=== PATIENT | male | born 1950 | race Caucasian/White ===

== ENCOUNTER 2019-10-08 10:36 | Inpatient (IN) | payer MEDICARE, MEDICAID ==
[~2019-10-08] VITALS: Ht 182.9 cm; Wt 56.7 kg
[2019-10-08 11:26] LABS: BASOPHILS 0.2 % (0-2); EOSINOPHILS 0.1 % (0-7); HEMATOCRIT 30.9 % (42.0-54.0); HEMOGLOBIN 9.6 g/dL (13.5-17.5); IMMATURE GRANULOCYTES 0.4 % (0-5); LYMPHOCYTES 3.5 % (15-50); MCH 26.4 pg (26.0-34.0); MCHC 31.1 g/dL (31.0-37.0); MCV 84.9 fL (80.0-100.0); MEAN PLATELET VOLUME 8.4 fL (7.4-10.4); MONOCYTES 5.8 % (2-11); PLATELET COUNT 325 10x3/uL (130-400); RBC 3.64 10x6/uL (4.20-6.10); RDW 17.2 % (11.5-14.5); WBC 11.9 10x3/uL (4.8-10.8)
[2019-10-08 12:00] VITALS: BP 145/76
[2019-10-08 12:11] LABS: CALCIUM 8.4 mg/dL (8.5-10.1); CARBON DIOXIDE 30.2 mmol/L (21.0-32.0); CREATININE - SERUM 1.2 mg/dL (0.6-1.3)
[2019-10-08 12:12] LABS: ALBUMIN 2.1 g/dL (3.4-5.0); BILIRUBIN - TOTAL 1.01 mg/dL (0.2-1.3); PROTEIN - SERUM 7.5 g/dL (6.4-8.2)
[2019-10-08 13:00] VITALS: BP 121/74
[2019-10-08 13:11] LABS: UDS - AMPHET NEGATIVE QUAL (NEGATIVE); UDS - BARB NEGATIVE QUAL (NEGATIVE); UDS - BENZO NEGATIVE QUAL (NEGATIVE); UDS - COCAINE NEGATIVE QUAL (NEGATIVE); UDS - OPIATE POSITIVE QUAL (NEGATIVE); UDS - PCP NEGATIVE QUAL (NEGATIVE); UDS - THC NEGATIVE QUAL (NEGATIVE)
[2019-10-08 13:21] LABS: BACTERIA FEW /hpf (NEGATIVE); BILIRUBIN NEGATIVE (NEGATIVE); GLUCOSE NEGATIVE (NEGATIVE); KETONE NEGATIVE (NEGATIVE); NITRITE NEGATIVE (NEGATIVE); RED CELLS - URINE OCC /hpf (0-5); SPECIFIC GRAVITY 1.015 (1.005-1.020); UROBILINOGEN 8 mg/dL (NORMAL); WHITE CELLS - URINE OCC /hpf (NEGATIVE)
[2019-10-08 13:22] LABS: HYALINE CAST RARE /lpf (NONE SEEN)
[2019-10-08 13:42] LABS: POTASSIUM - SERUM 3.2 mmol/L (3.5-5.1)
--- NOTE | 2019-10-08 13:57 | NUR ---
PATIENT VERY ANXIOUS, DC'D HIS OWN IV, CATH INTACT. IV RESITED LEFT FOREARM.
[2019-10-08 14:00] VITALS: BP 143/77
[2019-10-08 15:01] VITALS: BMI 17.0
[2019-10-08 17:13] VITALS: BP 130/69
--- NOTE | 2019-10-08 19:52 | NUR ---
PT LYING IN BED RESTING WITH EYES CLOSED. PT AWAKEN WITH VOICE STIMULATION. NO SIGNS OF DISTRESS NOTED. RESPIRATIONS EVEN AND UNLABORED. PT HAS NO COMPLAINTS AT THIS TIME. CALL LIGHT AND OTHER PERSONAL ITEMS WITH IN REACH. WILL CONTINUE TO MONIOTR
[2019-10-08 20:00] VITALS: BP 132/63
[2019-10-09] VITALS: BP 164/71
--- NOTE | 2019-10-09 01:28 | NUR ---
PT LYING IN BED RESTING QUIETLY WITH EYES CLOSED. PT AWAKENS WITH VOICE STIMULATION. BED BATH AND LINEN CHANGE COMPLETE. PT HAS NO COMPLINTS AT THIS TIME. BED ALARM ON AND ACTIVE. CALL LIGHT AND OTHER PERSONAL ITEMS WITH IN REACH. BED IS IN IT LOWEST POSITION SIDERAILS x2. CAREGIVER EVERARDO CALLED AND SAID SHE WOULD COME BY TO CHECK ON PT TOMMORROW. WILL CONTINUE TO MONITOR
--- NOTE | 2019-10-09 03:57 | NUR ---
I have reviewed this patient and I concur with the Shift Assessment completed by the Licensed Practical Nurse today this shift.
[2019-10-09 04:00] VITALS: BP 137/74
[2019-10-09 06:47] LABS: BASOPHILS 0 % (0-2); EOSINOPHILS 0 % (0-7); HEMATOCRIT 32.9 % (42.0-54.0); HEMOGLOBIN 10.1 g/dL (13.5-17.5); IMMATURE GRANULOCYTES 0.5 % (0-5); LYMPHOCYTES 8.1 % (15-50); MCH 26.1 pg (26.0-34.0); MCHC 30.7 g/dL (31.0-37.0); MEAN PLATELET VOLUME 8.7 fL (7.4-10.4); MONOCYTES 1.7 % (2-11); NEUTROPHILS 89.7 % (40-80); PLATELET COUNT 346 10x3/uL (130-400); RBC 3.87 10x6/uL (4.20-6.10); RDW 17.6 % (11.5-14.5)
[2019-10-09 06:49] LABS: WBC 7.7 10x3/uL (4.8-10.8)
[2019-10-09 06:58] LABS: CALC OSMOLALITY 279 mosm/kg (275-300); CALCIUM 8.5 mg/dL (8.5-10.1); CARBON DIOXIDE 31.8 mmol/L (21.0-32.0); CHLORIDE - SERUM 99 mmol/L (98-107); CREATININE - SERUM 0.9 mg/dL (0.6-1.3); GLUCOSE 127 mg/dL (74-106); POTASSIUM - SERUM 3.4 mmol/L (3.5-5.1); SODIUM 138 mmol/L (136-145); eGFR NON AFRICAN AMERICAN 89 mL/min (90-120)
[2019-10-09 06:59] LABS: UREA NITROGEN 17 mg/dL (7-18)
--- NOTE | 2019-10-09 07:23 | NUR ---
PT RESTING, EYES CLOSED. RR EVEN AND UNLABORED. NO DISTRESS NOTED. CALL LIGHT WTIHIN REACH. BED IN LOWEST POSITION. WILL CONTINUE TO MONITOR.
--- NOTE | 2019-10-09 08:22 | HP ---
PATIENT: MAYA FOX MEDICAL RECORD: [id number] ACCOUNT: [id number] LOCATION:[address] : [birth year] ADMISSION DATE: 10/08/19 PCP: NIXON MORTON MD HISTORY AND PHYSICAL EXAMINATION DATE OF ADMISSION: 10/08/2019 HISTORY OF PRESENT ILLNESS: Mr. Fox is a 68-year-old white male who is actually followed by Dr. Morton with [facility] and he is brought in with a history of altered mental status and cough for 3 days. The patient was seen by me at approximately 1:45 in the Emergency Department. He is lethargic. He will wake up and say a few words and then goes back to sleep. His O2 sat on room air was 45% and his O2 sat comes up when he breathes through his nose with nasal cannula oxygen. In the ER initially, temperature 97.5, heart rate 114, respirations were 20, blood pressure 140/80. ABG showed a pH of 7.5, pCO2 of 36, pO2 of 49. Chest x-ray showed left lower lobe pneumonia. It was suspected by ED physician that he may have COVID infection. He will be swabbed for that as well. He was placed on Rocephin and Zithromax and admitted. Went to [place] medical records and looks this patient up. He just had a Medicare wellness exam with Dr. Morton on 10/02/2019 which is about a week ago. At that time, he was started on Levaquin. He has had a right-sided infiltrate/mass since May and has had chest x-rays done at [place] for that. Actually, a CT of the chest was done just the day before yesterday at [place] and the right lower lobe infiltrate is actually improved, but there was a new onset left lower lobe infiltrate. The chart showed that there were multiple attempts to call this patient, but he did not answer and is answering. His voicemail was not set up, so he presents today. 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 PAST SURGICAL HISTORY: Spinal surgery, cataract repair. ALLERGIES: REPORTED TO IODINE, PENICILLIN, "RED DYE" AND "WHITE DYE," ALSO STRAWBERRY DOXYCYCLINE AND VITAMIN C HOME MEDICATIONS: That I could see from [facility] showed Antivert 25 mg p.r.n. dizziness, potassium 20 mEq daily, albuterol HFA p.r.n. Again, he was started on Levaquin 750 mg approximately 5 days ago, so he may be through with that. FAMILY HISTORY: Father had heart disease and hypertension, and all that said for his mother's history is that she had an overdose. HABITS: The patient does smoke cigarettes. Denies alcohol, denies illicit drug use. SOCIAL HISTORY: I am not able to obtain from the patient and there was nothing under social history that I could find. REVIEW OF SYSTEMS: Unobtainable and this patient is pretty lethargic in the Emergency Department. PHYSICAL EXAMINATION: HISTORY AND PHYSICAL [id number] MAYA FOX VITAL SIGNS: Temperature was 97.5, heart rate 93, respirations 20, blood pressure 145/76, O2 sat was 94% on nasal cannula. GENERAL: He was disheveled. He was unkempt. He appeared to be dirty. HEENT: Grossly unremarkable. NECK: Supple. No bruit. HEART: Regular rate and rhythm. LUNGS: Diminished breath sounds throughout both lung tapia. ABDOMEN: Soft and nontender. EXTREMITIES: No edema. NEUROLOGIC: Unable to be obtained due to his lethargic state. LABORATORY AND DIAGNOSTIC DATA: Lactic acid is 1.4. Urine is dark, yellow, hazy, trace blood, 5-10 epithelial cells, which suggests a contaminated specimen. Urine drug screen was positive for opiates. ABG; pH 7.53, pCO2 36, pO2 49. CBC showed a white count of 11,900, hemoglobin 9.6, hematocrit 30.9, platelet count was normal, 90% neutrophils. Lactic acid initially was 3.5. Sodium 135, potassium 3.2, chloride 95, CO2 30.2, BUN 11, creatinine 1.2, calcium 8.4, glucose 117. Liver enzymes are all normal. Albumin low at 2.1. Chest x-ray done in the Emergency Department showed findings concerning for left lower lobe pneumonia, underlying COPD. CT of the head was done and there was significant motion artifact which degraded the exam. There was no acute intracranial abnormality seen. I was able to get some labs from when the patient was seen by Dr. Morton on 10/02/2019. CBC then showed a white count of 12,300, hemoglobin 9.2, hematocrit 27.3. He has had anemia looking back over the last few months to over a year, his hemoglobin was 9.9, but it was as high as 13.0, 11.1 and 12.6. Basic metabolic panel was unremarkable. His iron level was 21 on 10/02/2019. His total iron binding capacity was low at 192 and percent iron saturation was 11. COVID test has returned and it is negative. ASSESSMENT: 1. Left lower lobe pneumonia. 2. Chronic obstructive pulmonary disease. 3. Chronic anemia. 4. History of hypertension. PLAN: He is started on IV antibiotics, given IV fluids. Pulmonary will be consulted. We will monitor his electrolytes. Recheck labs. Other tests or procedures as warranted. TRANSINT:[id number] Voice Confirmation ID: [id number] DOCUMENT ID: [id number] CATALINA MURRAY MD at 0822 CC: [id number] DICTATION DATE: 10/09/1911 BROKER ASSOCIATE: 10/09/19 0132 ADM IN [facility] [address] [id number]
[2019-10-09 08:31] VITALS: BP 137/71
--- NOTE | 2019-10-09 10:00 | NUR ---
PT PULLED OWN IV OUT. CATHETER TIP INTACT. DRESSING PLACED ON SITE. RESITED X3 ATTEMPTS 20 G TO RIGHT FOREARM.
--- NOTE | 2019-10-09 10:43 | NUR ---
I have reviewed this patient and I concur with the Shift Assessment completed by the Licensed Practical Nurse today this shift.
--- NOTE | 2019-10-09 11:00 | NUR ---
PT IS VERY CONFUSED. STATES THAT HE IS READY TO GO HOME AND SOMEONE IS UPSTAIRS WAITING ON HIM. REORIENTED SEVERAL TIMES THAT THE STATES HE DOES NOT WANT HIM TO GO HOME YET. SPOKE WITH DR. RUSH'S OFFICE AND THEY STATED HE WAS NOT USUALLY CONFUSED AND LIVED ALONE. PT STATES HE LIVES WITH HIS GRANPARENTS AND THEY ARE WAITING ON HIM. PT IS GETTING INCREASINGLY ANXIOUS/HYPERACTIVE. ASSISTED TO THE CHAIR WITH X1 ASSIST, UNSTEADY GAIT. BED ALARM PLACED UNDER PT. 1200- PT REQUESTED TO GO BACK TO BED. ASSISTED WITH LUNCH TRAY. AFTER LUNCH, PT STATED AGAIN THAT HE NEEDED/WANTED TO GO HOME. AGAIN, WAS TOLD THAT DR. MURRAY DID NOT SAY HE COULD GO HOME TODAY. BED ALARM PLACED. 1300- HAVE BEEN IN PTs ROOM SEVERAL TIMES WITH ALARM GOING OFF. PT IS ALMOST CONSTANTLY ATTEMPTING TO GET OUT OF BED. REORIENTED EVERYTIME. PT IS GETTING SOB UPON EVERY ATTEMPT. O2 SAT 90% ON RA. PLACED ON 2L NC. PT REMOVED IV HIMSELF. CATHETER TIP INTACT. DRESSING PLACED OVER SITE. DISROBING. PT CLEANED. LINENS CHANGED. GOWN PLACED BACK ON PT. 1400- PT OUT OF BED AGAIN AND ATTEMPTING TO COME OUT OF HIS ROOM. WHEN TOLD TO PLEASE GET BACK TO BED, PT RAISED HIS FIST ACTING IF HE WAS GOING TO HIT ME AND STATED HE WAS "GOING TO BEAT MY ASS". PLACED BACK IN BED. BED ALARM IN PLACE. WILL CONTINUE TO MONITOR.
[2019-10-09 12:24] VITALS: BP 111/58
--- NOTE | 2019-10-09 19:30 | NUR ---
PT UP IN ROOM, CONFUSED, AGITATED AT THIS TIME. PT PUT BACK TO BED, BED ALARM ON AT THIS TIME, CL IN REACH, SR UP X 2.
[2019-10-09 20:00] VITALS: BP 142/72
[2019-10-10 04:00] VITALS: BP 165/80
[2019-10-10 05:08] LABS: BASOPHILS 0.1 % (0-2); EOSINOPHILS 0 % (0-7); HEMATOCRIT 29.8 % (42.0-54.0); HEMOGLOBIN 9.2 g/dL (13.5-17.5); IMMATURE GRANULOCYTES 0.8 % (0-5); LYMPHOCYTES 5.1 % (15-50); MCHC 30.9 g/dL (31.0-37.0); MCV 84.2 fL (80.0-100.0); MEAN PLATELET VOLUME 8.6 fL (7.4-10.4); MONOCYTES 1.6 % (2-11); NEUTROPHILS 92.4 % (40-80); PLATELET COUNT 302 10x3/uL (130-400); RBC 3.54 10x6/uL (4.20-6.10); RDW 17.3 % (11.5-14.5)
[2019-10-10 05:16] LABS: WBC 10.6 10x3/uL (4.8-10.8)
[2019-10-10 05:21] LABS: ANION GAP 9.5 mmol/L (8-16); CALCIUM 8.3 mg/dL (8.5-10.1); CARBON DIOXIDE 32.4 mmol/L (21.0-32.0)
[2019-10-10 05:26] LABS: CREATININE - SERUM 1.2 mg/dL (0.6-1.3)
[2019-10-10 05:27] LABS: POTASSIUM - SERUM 2.9 mmol/L (3.5-5.1)
[2019-10-10 08:39] LABS: BILIRUBIN NEGATIVE (NEGATIVE); GLUCOSE NEGATIVE (NEGATIVE); KETONE NEGATIVE (NEGATIVE); NITRITE NEGATIVE (NEGATIVE); SPECIFIC GRAVITY 1.015 (1.005-1.020); UROBILINOGEN NORMAL (NORMAL)
[2019-10-10 08:40] LABS: BACTERIA FEW /hpf (NEGATIVE); EPITHELIAL CELLS OCC /hpf (0-5); RED CELLS - URINE OCC /hpf (0-5); WHITE CELLS - URINE OCC /hpf (NEGATIVE)
[2019-10-10 09:26] VITALS: BP 160/83
--- NOTE | 2019-10-10 11:00 | NUR ---
PT SITTING UP IN BED, AWAKE, CONFUSED. PT STATES "I DONT KNOW WHY IM HERE BUT HURRY UP SO I CAN SMOKE." I REORIENTATED PT TO REALITY AND EDUCATED HIM ON THE NON SMOKING POLICY. I PROVIDED A MIGUEL A PATCH PER ORDER. PT REMOVED PIV. PT ON 4L NC HE CONSENTED TO WEARING O2 WHEN PROMPTED BY CAREGIVER. CAREGIVER INFORMED ME THAT HE IS ACTING VERY OUT OF CHARACTER AND SHE HAS NOT WITNESSED HIM THIS CONFUSED BEFORE. PERFORMED ASSESSMENT: SEE SHIFT ASSESSMENT. PT HAS SKIN BREAKDOWN ON COCCYX, APPLIED CREAM. EDUCATED PT AND CARGIVER TRANSPORTATION OFFICER LIGHT AND FALL PRECAUTIONS, BOTH VERBALIZED UNDERSTANDING. BED ALARM ON, BED LOW, RAILS X2. CL IN REACH. WILL CONTINUE TO MONITOR.
--- NOTE | 2019-10-10 11:00 | NUR ---
PT ASSISTED INTO SHOWER BY AUTOMOTIVE PAINTER. PT ABLE TO ASSIT WITH HYGIENE CARE. COMPLETE BED CHANGE. PT TOLERATED SHOWER WELL AND IS NOW IN BED SITTING. BED LOW, RAILS X2. CL IN REACH. DENIES FURTHER NEEDS. WILL CONTINUE TO MONITOR.
[2019-10-10 14:09] VITALS: BP 153/91
--- NOTE | 2019-10-10 15:05 | NUR ---
RESTING WITH EYES CLOSED, RESP ARE EVEN. AUSTEN MAT ALARM IS ON AND IN USE ALONG WITH BABY MONITOR TO WATCH FOR GETTING OUT OF BED.
[2019-10-10 17:50] VITALS: BP 116/65
--- NOTE | 2019-10-10 19:13 | NUR ---
RECIEVED UP IN BED WITH EYES OPEN AND TV ON. ATTEMPTING TO GET UP AND AMBULATE WITH OUT ASSIST. ALERT AND ORIENTED TO PERSON ONLY. REFUSES TO WEAR O2 AND HAS NO IV. DSG TO COCCYX CDI. TOE NAILS ARE LONG AND THICK WITH YELLOWISH COLOR. HAS POOR HYGEINE. DENIES ANY NEEDS AT THIS TIME. NO S/S OF DISTRESS OBSERVED.
[2019-10-10 20:00] VITALS: BP 147/66
[2019-10-11 04:00] VITALS: BP 180/78
[2019-10-11 05:22] LABS: BASOPHILS 0 % (0-2); EOSINOPHILS 0 % (0-7); HEMATOCRIT 26.1 % (42.0-54.0); IMMATURE GRANULOCYTES 0.9 % (0-5); LYMPHOCYTES 6.3 % (15-50); MCH 26.2 pg (26.0-34.0); MCHC 30.7 g/dL (31.0-37.0); MCV 85.6 fL (80.0-100.0); MEAN PLATELET VOLUME 8.6 fL (7.4-10.4); MONOCYTES 5.1 % (2-11); NEUTROPHILS 87.7 % (40-80); PLATELET COUNT 307 10x3/uL (130-400); RBC 3.05 10x6/uL (4.20-6.10); WBC 11.9 10x3/uL (4.8-10.8)
[2019-10-11 05:48] LABS: CALC OSMOLALITY 281 mosm/kg (275-300); CALCIUM 8.4 mg/dL (8.5-10.1); CARBON DIOXIDE 32.8 mmol/L (21.0-32.0); CHLORIDE - SERUM 104 mmol/L (98-107); GLUCOSE 105 mg/dL (74-106); SODIUM 139 mmol/L (136-145); UREA NITROGEN 23 mg/dL (7-18); eGFR NON AFRICAN AMERICAN 78 mL/min (90-120)
[2019-10-11 05:49] LABS: POTASSIUM - SERUM 4.3 mmol/L (3.5-5.1)
--- NOTE | 2019-10-11 07:05 | NUR ---
RESTING IN BED WITH EYES CLOSED. RESPIRATIONS EVEN AND UNLABORED. NO S/S OF ACUTE DISTRESS NOTED. ON 4L O2, NC. NO PERIPHERAL IV. HIGH FALL RISK, BED ALARM ON. WOUND TO COCCYX, DRESSING C/D/I. INCONTINENT OF B&B. CALL LIGHT IN REACH. WILL CONTINUE TO MONITOR.
[2019-10-11 11:00] VITALS: BP 177/92
[2019-10-11 15:00] VITALS: BP 166/73
--- NOTE | 2019-10-11 17:45 | NUR ---
I have reviewed this patient and I concur with the Shift Assessment completed by the Licensed Practical Nurse today this shift.
--- NOTE | 2019-10-11 18:13 | NUR ---
RESTING IN BED WITH EYES CLOSED. NO C/O PAIN. NO S/S OF ACUTE DISTRESS NOTED. RESPIRATIONS EVEN AND UNLABORED. OCCASSIONAL COUGH. CALL LIGHT IN REACH. AUSTEN ALARM ON. WILL CONTINUE TO MONITOR.
--- NOTE | 2019-10-11 19:19 | NUR ---
RECIEVED UP IN BED WITH HOB ELEVATED. LETHARGIC AND SPEEH IS INCOHERENT. NO IV ACCESS AT THIS TIME. DSG TO COCCYX CDI. INCONTINENT OF B/B. NO S/S OF DISTRESS OBSERVED.
[2019-10-11 20:00] VITALS: BP 160/94
[2019-10-12] VITALS: BP 140/93
[2019-10-12 04:00] VITALS: BP 145/80
[2019-10-12 05:14] LABS: BASOPHILS 0.1 % (0-2); EOSINOPHILS 0 % (0-7); HEMATOCRIT 31.1 % (42.0-54.0); HEMOGLOBIN 9.5 g/dL (13.5-17.5); LYMPHOCYTES 5.7 % (15-50); MCH 26.4 pg (26.0-34.0); MCHC 30.5 g/dL (31.0-37.0); MCV 86.4 fL (80.0-100.0); MEAN PLATELET VOLUME 8.7 fL (7.4-10.4); MONOCYTES 5.8 % (2-11); NEUTROPHILS 87.4 % (40-80); PLATELET COUNT 323 10x3/uL (130-400); RDW 18.2 % (11.5-14.5); WBC 13.4 10x3/uL (4.8-10.8)
[2019-10-12 05:47] LABS: CALC OSMOLALITY 278 mosm/kg (275-300); CALCIUM 8.5 mg/dL (8.5-10.1); CARBON DIOXIDE 32.1 mmol/L (21.0-32.0); CHLORIDE - SERUM 102 mmol/L (98-107); GLUCOSE 96 mg/dL (74-106); POTASSIUM - SERUM 4.2 mmol/L (3.5-5.1); SODIUM 139 mmol/L (136-145); eGFR NON AFRICAN AMERICAN 78 mL/min (90-120)
[2019-10-12 05:51] LABS: UREA NITROGEN 16 mg/dL (7-18)
--- NOTE | 2019-10-12 07:54 | NUR ---
CALL RECEIVED FROM XRAY STATING BARIUM SWALLOW WILL BE SCHEDULED FOR TOMORROW. WILL KEEP PT NPO DUE TO ASPIRATION RISKS AND TALK WITH PHYSICIAN WHEN ROUNDING.
--- NOTE | 2019-10-12 07:54 | NUR ---
INFORMED NURSE ZAKI ON M2 THAT BARIUM SWALLOW WITH SPEECH IS TO BE SCHEDULED SUNDAY WHEN SPEECH IS IN HOUSE.
[2019-10-12 08:31] VITALS: BP 160/89
[2019-10-12 13:20] VITALS: BP 147/77
--- NOTE | 2019-10-12 18:16 | NUR ---
PT MORE ALERT AND AWAKE NOW. DID WELL ON BEDSIDE SWALLOW EVAL. TOOK MEDS AND ATE SOME OF HIS LUNCH WITH ASSIST. HE IS INCONTINENT. KEEPS LEGS PULLED UP.
[2019-10-12 18:29] VITALS: BP 145/81
--- NOTE | 2019-10-12 19:29 | NUR ---
RECIEVED UP IN BED WITH EYES OPEN AND TV ON. ALERT AND ORIENTED TO PERSON ONLY. SPEECH IS CLEARER TODAY. DSG TO COCCYX. INCONT OF B/B. WARMED DINNER UP AND ASSISTED WITH EATING. ATE 75% AND THEN ASKED FOR ICE CREAM. NO OBVIOUS S/S OF DISTRESS OBSERVED. CONT TO WIGGLE AROUND THE BED AND LIKES TO BE SIDEWAYS IN THE BED. REPOSITIONED OFTEN.
[2019-10-13 00:30] VITALS: BP 119/70
[2019-10-13 05:00] VITALS: BP 122/76
[2019-10-13 05:23] LABS: BASOPHILS 0 % (0-2); EOSINOPHILS 0 % (0-7); HEMATOCRIT 31.2 % (42.0-54.0); HEMOGLOBIN 9.6 g/dL (13.5-17.5); LYMPHOCYTES 10.7 % (15-50); MCHC 30.8 g/dL (31.0-37.0); MCV 84.6 fL (80.0-100.0); MEAN PLATELET VOLUME 8.9 fL (7.4-10.4); MONOCYTES 3.9 % (2-11); NEUTROPHILS 84.4 % (40-80); PLATELET COUNT 290 10x3/uL (130-400); RBC 3.69 10x6/uL (4.20-6.10)
[2019-10-13 05:29] LABS: WBC 8.7 10x3/uL (4.8-10.8)
[2019-10-13 05:47] LABS: CALCIUM 8.3 mg/dL (8.5-10.1); CARBON DIOXIDE 29.2 mmol/L (21.0-32.0); CHLORIDE - SERUM 100 mmol/L (98-107); GLUCOSE 106 mg/dL (74-106); SODIUM 136 mmol/L (136-145); eGFR NON AFRICAN AMERICAN 78 mL/min (90-120)
[2019-10-13 05:48] LABS: CALC OSMOLALITY 274 mosm/kg (275-300); POTASSIUM - SERUM 3.4 mmol/L (3.5-5.1); UREA NITROGEN 21 mg/dL (7-18)
[2019-10-13 08:30] VITALS: BP 144/84
[2019-10-13 12:00] VITALS: BP 128/65; BP 145/68; BP 145/76
[2019-10-13 12:23] VITALS: Ht 182.9 cm; Wt 56.7 kg
--- NOTE | 2019-10-13 15:31 | NUR ---
PT HAS A STAGE 2 PRESSURE INJURY ON COCCYX MEASURING 2CM X 2CM AND A STAGE 2 ON BUTTOCK MEASURING 1CM X 1CM. PT IS VERY THIN/FRAIL. RECOMMENDED MEPILEX TO PROTECT AND CUSHION THESE AREAS. WOUND CARE WILL CONTINUE MONITORING.
[2019-10-13 16:50] VITALS: BP 145/68
--- NOTE | 2019-10-13 18:28 | NUR ---
I have reviewed this patient and I concur with the Shift Assessment completed by the Licensed Practical Nurse today this shift.
--- NOTE | 2019-10-13 19:05 | NUR ---
REPORT RECEIVED, WILL CONTINUE POC. PATIENT IS AAOX2, LYING IN SEMI-FOWLERS POSITION. NO S/S OF DISTRESS OBSERVED, RR EVEN AND UNLABORED ON ROOM AIR. PATIENT DENIES NEEDS AT THIS TIME. CL IN REACH, BED LOCKED AND LOWERED. AUSTEN ALARM ON. WILL CTM.
[2019-10-13 20:00] VITALS: BP 156/82
--- NOTE | 2019-10-14 01:50 | NUR ---
PATIENT INCONT OF URINE. COMPLETE BED CHANGED, MICK CARE, GOWN CHANGED COMPLETED. AUSTEN ALARM ON, BED LOCKED AND LOWERED, CL IN REACH. WILL CTM.
[2019-10-14 04:00] VITALS: BP 138/80
[2019-10-14 04:37] LABS: BASOPHILS 0 % (0-2); EOSINOPHILS 0.1 % (0-7); HEMATOCRIT 30.7 % (42.0-54.0); HEMOGLOBIN 9.5 g/dL (13.5-17.5); IMMATURE GRANULOCYTES 1.6 % (0-5); LYMPHOCYTES 12.8 % (15-50); MCH 26.2 pg (26.0-34.0); MCHC 30.9 g/dL (31.0-37.0); MCV 84.6 fL (80.0-100.0); MEAN PLATELET VOLUME 8.9 fL (7.4-10.4); MONOCYTES 4.3 % (2-11); NEUTROPHILS 81.2 % (40-80); PLATELET COUNT 297 10x3/uL (130-400); RBC 3.63 10x6/uL (4.20-6.10); RDW 18.2 % (11.5-14.5); WBC 8.8 10x3/uL (4.8-10.8)
[2019-10-14 05:03] LABS: ANION GAP 11.4 mmol/L (8-16); CALCIUM 8.5 mg/dL (8.5-10.1); CARBON DIOXIDE 29.3 mmol/L (21.0-32.0); CREATININE - SERUM 1.1 mg/dL (0.6-1.3); MAGNESIUM - SERUM 2.5 mg/dL (1.8-2.4); POTASSIUM - SERUM 3.7 mmol/L (3.5-5.1)
--- NOTE | 2019-10-14 06:19 | NUR ---
I have reviewed this patient and I concur with the Shift Assessment completed by the Licensed Practical Nurse today this shift.
[2019-10-14 09:00] VITALS: BP 172/83
[2019-10-14 11:00] VITALS: BP 126/67
--- NOTE | 2019-10-14 12:53 | NUR ---
PATIENT IS CONFUSED SAYING THAT HE WANTS A SMOKE. EDUCATED PATEINT ON THE FACT THAT HE HAS A NICOTINE PATCH. HE STILL REPORTS THAT HE WANTS A SMOKE. THIS NURSE TOLD THE PATIENT THAT HE WILL NOT BE ABLE TO GO OUTSIDE AND THE PATIENT STATED "GIVE ME THAT GUN ON THE COMPUTER SO THAT I CAN BLOW MY BRAINS OUT". CALLED LEGAL ADMINISTRATIVE SECRETARY. LEGAL ADMINISTRATIVE SECRETARY GAVE THIS NURSE THE NUMBER TO ROB. ROB REPORTED TO GO AHEAD AND GIVE THE PRN ATIVAN AND TO ENSURE THE PATIENTS SAFETY.
[2019-10-14 15:00] VITALS: BP 112/65
--- NOTE | 2019-10-14 19:00 | NUR ---
REPORT RECEIVED, WILL CONTINUE POC. PATIETN IS ALERT/CONFUSED. LYING IN SEMI-FOWLERS POSITION. NO S/S OF DISTRESS OBSERVED, RR EVEN AND UNLABORED ON ROOM AIR. PATIENT DENIES NEEDS AT THIS TIME. CL IN REACH, BED LOCKED AND LOWERED. AUSTEN ALARM ON. WILL CTM.
[2019-10-14 20:57] VITALS: BP 129/42
[2019-10-14 23:57] VITALS: BP 168/96
[2019-10-15 04:34] VITALS: BP 131/75
--- NOTE | 2019-10-15 08:05 | NUR ---
PATCH MACHINE OPERATOR FED PT BREAKFAST AND ATE ALL OF EGGS. PT HAD INCONTINET BM AND URINE. BRIEF CHANGED AND COMPLETE LINEN CHANGE DONE.
[2019-10-15 09:00] VITALS: BP 150/54
--- NOTE | 2019-10-15 10:20 | NUR ---
PT'S PCP DR. RUSH'S OFFICE NURSE JOSE CALLED AND STATED PT'S SON JULIEN IS UPSET BECAUSE HE DOESN'T KNOW ANY INFORMATION ABOUT HIS FATHER AND THE HOSPITAL WON'T TELL HIM ANYTHING SHE ALSO STATES THAT HE STATED TO HER THAT AN RN WHO DOESN'T HAVE HER LICENSE BROUGHT PT UP HERE AND CLAIMED TO BE PT'S POA BUT SHE IS NOT. SHE STATES TO ME THAT PT IS NORMALLY CONFUSED AT HOME AND PT LIVES WITH HIS SON JULIEN. I STATED TO HER I WILL SPEAK WITH CASE MANAGEMENT AND PLACED HER ON HOLD. SPOKE WITH JULIO C GRAIN BROKER AND STATED MY CONVERSATION TO HER SHE STATES SHE HAS TRIED TO CALL SON BUT COULD NOT GET AN ANSWER ON HIS PHONE BECAUSE HE WAS OUT OF MINUTES GAVE HER PT'S SONS PHONE NUMBER [phone] THAT JOSE GAVE ME. JULIO C VERBALIZED UNDERSTANDING AND STATES SHE WILL CALL AND SPEAK WITH SON JULIEN. I VERBALIZED UNDERSTANDING. THIS NURSE GOT BACK ON THE PHONE WITH JOSE HERRING AND STATED MY CONVERSATION WITH GRAIN BROKER TO HER AND SHE STATES SHE WILL CALL AND LET SON KNOW THAT THE GRAIN BROKER WILL CALL HIM.
--- NOTE | 2019-10-15 10:50 | NUR ---
PT GOT OUT OF BED BY SELF. BED ALARM WENT OFF. X2 NURSES HELPED PT BACK TO BED AND REORIENTED PT AND PT WAS PASSIVE WITH TEACHING. BED ALARM ON. WILL CONTINUE TO MONITOR. BED LOW. CL IN REACH.
[2019-10-15 11:00] VITALS: BP 118/65
--- NOTE | 2019-10-15 12:39 | NUR ---
I have reviewed this patient and I concur with the Shift Assessment completed by the Licensed Practical Nurse today this shift.
[2019-10-15 15:00] VITALS: BP 128/56
--- NOTE | 2019-10-15 15:40 | NUR ---
LARGE MEPILEX PLACED TO PT'S BUTTOCK.
--- NOTE | 2019-10-15 15:43 | NUR ---
DR. VAZ STATES TO ME PT IS OK TO DC AND STATES TO CALL DR. MURRAY AND SEE IF HE WILL DC PT. CALLED DR. MURRAY'S OFFICE AND SPOKE WITH TIKI HERRING AND SHE STATES SHE WILL SPEAK WITH DR. MURRAY ABOUT DISCHARGING PT. I VERBALIZED UNDERSTANDING.
--- NOTE | 2019-10-15 17:57 | MORECARE ---
CASE MANAGEMENT DISCHARGE SUMMARY PATIENT: MAYA FOX UNIT: [id number] ADM DATE: 10/08/19 AGE: 68 : 48 SEX: M ROOM/BED: D.2103 AUTHOR: NIDHIDOC PHYSICIAN: REFERRING PHYSICIAN: CATALINA MURRAY MD DATE OF SERVICE: 10/15/19 Discharge Plan Patient Name: MAYA FOX Facility: [facility]:[place] : 1950 Planned Disposition: Home Health Service Anticipated Discharge Date: 10/16/19 Discharge Date: Expected LOS: 8 Initial Reviewer: [email or web address] Initial Review Date: 10/08/2019 Generated: 10/15/19 6:56 pm Comments DCP- Discharge Planning Updated by [email or web address]: Bijal Smith on 10/15/19 4:[address] CM had tried to contact the patient's son, Cezar Fox at 0900, in order to start a DC plan, but there was no answer and the message states that the mail box had not been set up. CM spoke with the patient's son, Cezar Fox @[phone], in regards to a DC plan for this patient. PCP: Dr. Morton. Pharmacy: [facility] and his father has been able to obtain all of his prescribed medications. DME: bailee, shower chair, BSC. The son states that he plans for his father to return home with him, where he is the caregiver for patient and son's . The son states that he has a O2 concentrator from [employer], that his father can use for his O2 concentrator. He states this is separate from his 's O2 concentrator. Son states that he has a nebulizer that his father can use, also. Son states he would be in agreement for [facility] (no preference), with Nursing, PT, Speech therapy for his father. Declines a Skilled stay for his father, son states he is the caregiver and takes very good care of his father and his . patient's son will drive him home upon DC and to call the above phone number. CM will set up HHS 10/15., and assist with further DC needs. DCPIA - Discharge Planning Initial Assessment Updated by [email or web address]: Bijal Smith on 10/15/19 5:54 pm * Is the patient Alert and Oriented? No * PCP Dr. Morton * Pharmacy [facility] * Preadmission Environment Home with Family * ADLs Partial Dependent * Partial ADLs (Assistance needed) Medication Management * Equipment Nebulizer * Other Equipment Nebulizer, O2 Concentrator, Walker, Shower Chair * List name and contact numbers for known caregivers / representatives who currently or will assist patient after discharge: Cezar Fox (son) [phone] * Verbal permission to speak to the caregivers and representatives has been obtained from the patient. Yes * Community resources currently utilized Home Health * Please name any agencies selected above. Unknown at this time * Additional services required to return to the preadmission environment? Yes * Can the patient safely return to the preadmission environment? Yes * Has this patient been hospitalized within the prior 30 days at any hospital? No Patient Name: MAYA FOX Page [id number] at 1757 All edits/amendments must be made on the electronic document DICTATION DATE: 10/15/191755 SYSTEMS ANALYST: MOON 10/15/191755 RPT#: [id number] DC DATE: STATUS: ADM IN [facility] [address] [place] [address] END OF REPORT
--- NOTE | 2019-10-15 19:00 | NUR ---
REPORT RECEIVED, WILL CONTINUE POC. PATIENT IS ALERT/CONFUSED. BEING UNCOOPERATED. ASKING FOR A CIGARETTE AND TO GET OUT OF HERE. REORIENTED PATIENT. ASSISTED BACK INTO BED. NO S/S OF DISTRESS OBSERVED, RR EVEN AND UNLABORED ON ROOM AIR. CL IN REACH, BED LOCKED AND LOWERED. AUSTEN ALARM ON. WILL CTM.
--- NOTE | 2019-10-15 19:21 | NUR ---
PATIENT SON, JULIEN CALLED TO ASK WHAT'S WRONG WITH HIS FATHER. UPDATED PATIENT ON DISCHARGE PLANNING OF WHICH HE ALREADY SPOKE TO CM ABOUT AND KNOWS EVERYTHING I WAS RELAYING TO HIM. UNSURE OF WHAT HE WAS TRYING TO FIGURE OUT HE KNEW ALL THE DISCHARGE PLANS.
[2019-10-15 20:00] VITALS: BP 132/66
--- NOTE | 2019-10-15 20:11 | NUR ---
PATIENT REPEATEDLY TRYING TO GET OUT OF BED. KEEPS SAYING HE WANTS A CIGARETTE AND TO BE TAKEN TO THE STORE. REORIENTED HIM. ADMINISTERED PRN IM ATIVAN PER ORDERS. AUSTEN ALARM ON, WILL CTM.
[2019-10-16 04:00] VITALS: BP 121/67
[2019-10-16] MEDS ORDERED: PULMICORT0.5 MG/21 UPD (09:03)
[2019-10-16] MEDS ORDERED: PREDNISONE20 MG PO (09:06)
[2019-10-16] MEDS ORDERED: IPRAT-ALBUT 0.5-3 ML UPD (09:06)
[2019-10-16] MEDS ORDERED: OMNICEF300 MG PO (09:12)
--- NOTE | 2019-10-16 12:49 | MORECARE ---
CASE MANAGEMENT DISCHARGE SUMMARY PATIENT: ZEKE FOX UNIT: [id number] ADM DATE: 10/08/19 AGE: 68 : 48 SEX: M ROOM/BED: D.2103 AUTHOR: NIDHI,DOC PHYSICIAN: REFERRING PHYSICIAN: CATALINA MURRAY MD DATE OF SERVICE: 10/16/19 Discharge Plan Patient Name: ZEKE FOX Facility: [facility]:[place] : 1950 Planned Disposition: Home Health Service Anticipated Discharge Date: 10/16/19 Discharge Date: Expected LOS: 8 Initial Reviewer: [email or web address] Initial Review Date: 10/08/2019 Generated: 10/16/19 1:49 pm Comments DCP- Discharge Planning Updated by [email or web address]: Bijal Smith on 10/16/19 11:[address] Per Suleiman [facility] will accept patient for nursing, PT, aide. Faxed required information. DCP- Discharge Planning Updated by [email or web address]: Bijal Smith on 10/15/19 4:[address] CM had tried to contact the patient's son, Cezar Fox at 0900, in order to start a DC plan, but there was no answer and the message states that the mail box had not been set up. CM spoke with the patient's son, Cezar Fox @[phone], in regards to a DC plan for this patient. PCP: Dr. Morton. Pharmacy: [facility] and his father has been able to obtain all of his prescribed medications. DME: nancy morochoer chair, BSC. The son states that he plans for his father to return home with him, where he is the caregiver for patient and son's . The son states that he has a O2 concentrator from [employer], that his father can use for his O2 concentrator. He states this is separate from his 's O2 concentrator. Son states that he has a nebulizer that his father can use, also. Son states he would be in agreement for [facility] (no preference), with Nursing, PT, Speech therapy for his father. Declines a Skilled stay for his father, son states he is the caregiver and takes very good care of his father and his . patient's son will drive him home upon DC and to call the above phone number. CM will set up HHS 10/15., and assist with further DC needs. DCPIA - Discharge Planning Initial Assessment Updated by [id number]: Bijal Smith on 10/15/19 5:54 pm * Is the patient Alert and Oriented? No * PCP Dr. Morton * Pharmacy [facility] * Preadmission Environment Home with Family * ADLs Partial Dependent * Partial ADLs (Assistance needed) Medication Management * Equipment Nebulizer * Other Equipment Nebulizer, O2 Concentrator, Walker, Shower Chair * List name and contact numbers for known caregivers / representatives who currently or will assist patient after discharge: Cezar Fox (son) [phone] * Verbal permission to speak to the caregivers and representatives has been obtained from the patient. Yes * Community resources currently utilized Home Health * Please name any agencies selected above. Unknown at this time * Additional services required to return to the preadmission environment? Yes * Can the patient safely return to the preadmission environment? Yes * Has this patient been hospitalized within the prior 30 days at any hospital? No Coverage Notice Reviewer: [email or web address] - Bijal Smith Notice Issued Date-Time: 10/16/2019 12:37 Notice Type: IM Discharge Notice Notice Delivered To: Patient Relationship to Patient: Self Intermediate Project Manager Name: Zeke Fox Delivery Method: HAND - Hand Delivered Kandice Days: Prior Verbal Notification: Recipient Understood Notice: Yes Recipient Signature: Yes Med Rec Note Co-signed by Attending: Coverage Notice Comment: DC IMM signed and original to family. Last DP export: 10/15/19 4:57 pm Patient Name: ZEKE FOX Page [phone] at 1249 All edits/amendments must be made on the electronic document DICTATION DATE: 10/16/19 1249 CANE BURNER: MOON 10/16/19 1249 RPT#: [id number] DC DATE: STATUS: ADM IN [facility] [address] [place] [address] END OF REPORT
--- NOTE | 2019-10-16 12:59 | MORECARE ---
CASE MANAGEMENT DISCHARGE SUMMARY PATIENT: ZEKE FOX UNIT: [id number] ADM DATE: 10/08/19 AGE: 68 : 48 SEX: M ROOM/BED: D.2103 AUTHOR: NIDHI,DOC PHYSICIAN: REFERRING PHYSICIAN: CATALINA MURRAY MD DATE OF SERVICE: 10/16/19 Discharge Plan Patient Name: ZEKE FOX Facility: [facility]:[place] : 1950 Planned Disposition: Home Health Service Anticipated Discharge Date: 10/16/19 Discharge Date: Expected LOS: 8 Initial Reviewer: [email or web address] Initial Review Date: 10/08/2019 Generated: 10/16/19 1:58 pm Comments DCP- Discharge Planning Updated by [id number]: Bijal Smith on 10/16/19 11:[address] Per Suleiman [facility] will accept patient for nursing, PT, aide. Faxed required information. DCP- Discharge Planning Updated by [id number]: Bijal Smith on 10/15/19 4:[address] CM had tried to contact the patient's son, Cezar Fox at 0900, in order to start a DC plan, but there was no answer and the message states that the mail box had not been set up. CM spoke with the patient's son, Cezar Fox @[phone], in regards to a DC plan for this patient. PCP: Dr. Morton. Pharmacy: [facility] and his father has been able to obtain all of his prescribed medications. DME: nancy morochoer chair, BSC. The son states that he plans for his father to return home with him, where he is the caregiver for patient and son's . The son states that he has a O2 concentrator from [employer], that his father can use for his O2 concentrator. He states this is separate from his 's O2 concentrator. Son states that he has a nebulizer that his father can use, also. Son states he would be in agreement for [facility] (no preference), with Nursing, PT, Speech therapy for his father. Declines a Skilled stay for his father, son states he is the caregiver and takes very good care of his father and his . patient's son will drive him home upon DC and to call the above phone number. CM will set up HHS 10/15., and assist with further DC needs. DCPIA - Discharge Planning Initial Assessment Updated by [email or web address]: Bijal Smith on 10/15/19 5:54 pm * Is the patient Alert and Oriented? No * PCP Dr. Morton * Pharmacy [facility] * Preadmission Environment Home with Family * ADLs Partial Dependent * Partial ADLs (Assistance needed) Medication Management * Equipment Nebulizer * Other Equipment Nebulizer, O2 Concentrator, Walker, Shower Chair * List name and contact numbers for known caregivers / representatives who currently or will assist patient after discharge: Cezar Fox (son) [phone] * Verbal permission to speak to the caregivers and representatives has been obtained from the patient. Yes * Community resources currently utilized Home Health * Please name any agencies selected above. Unknown at this time * Additional services required to return to the preadmission environment? Yes * Can the patient safely return to the preadmission environment? Yes * Has this patient been hospitalized within the prior 30 days at any hospital? No External Providers External Provider: [facility] Next Contact Date: Service Request Date: Service Type: Resolution: Reviewer: Comments: Coverage Notice Reviewer: [id number] - Bijal Smith Notice Issued Date-Time: 10/16/2019 12:37 Notice Type: IM Discharge Notice Notice Delivered To: Patient Relationship to Patient: Self Licensed Clinical Psychologist Name: Zeke Fox Delivery Method: HAND - Hand Delivered Kandice Days: Prior Verbal Notification: Recipient Understood Notice: Yes Recipient Signature: Yes Med Rec Note Co-signed by Attending: Coverage Notice Comment: DC IMM signed and original to family. Last DP export: 10/16/19 11:49 am Patient Name: ZEKE FOX Page [id number] at 1259 All edits/amendments must be made on the electronic document DICTATION DATE: 10/16/191257 HEARING AID ASSEMBLY SUPERVISOR: MOON 10/16/191257 RPT#: [id number] DC DATE: STATUS: ADM IN [facility] [address] [place] [address] END OF REPORT
--- NOTE | 2019-10-16 13:13 | NUR ---
PT DRESSED AND TAKEN DOWN STAIRS THROUGH MAIN ENTRANCE TO SON IN SON'S PERSONAL VEHICLE. PT CONFUSED AND UNABLE TO SIGN PAPER WORK. DISCHARGE INSTRUCTIONS WENT OVER WITH PT'S SON JULIEN AND HE HAD NO FURTHER QUESTIONS. CHART COPY SIGNED. PT TRANSFERED INTO VEHICLE. PT HAS NO IV AND NO TELE.
--- NOTE | 2019-10-16 15:05 | MORECARE ---
CASE MANAGEMENT DISCHARGE SUMMARY PATIENT: ZEKE FOX UNIT: [id number] ADM DATE: 10/08/19 AGE: 68 : 48 SEX: M ROOM/BED: D.2103 AUTHOR: NIDHI,DOC PHYSICIAN: REFERRING PHYSICIAN: CATALINA MURRAY MD DATE OF SERVICE: 10/16/19 Discharge Plan Patient Name: ZEKE FOX Facility: [facility]:[place] : 1950 Planned Disposition: Home Health Service Anticipated Discharge Date: 10/16/19 Discharge Date: 10/16/2019 Expected LOS: 8 Initial Reviewer: [email or web address] Initial Review Date: 10/08/2019 Generated: 10/16/19 4:05 pm Comments DCP- Discharge Planning Updated by [id number]: Bijal Smith on 10/16/19 11:[address] Per Suleiman [facility] will accept patient for nursing, PT, aide. Faxed required information. DCP- Discharge Planning Updated by [id number]: Bijal Smith on 10/15/19 4:[address] CM had tried to contact the patient's son, Cezar Fox at 0900, in order to start a DC plan, but there was no answer and the message states that the mail box had not been set up. CM spoke with the patient's son, Cezar Fox @[phone], in regards to a DC plan for this patient. PCP: Dr. Morton. Pharmacy: [facility] and his father has been able to obtain all of his prescribed medications. DME: bailee shower chair, BSC. The son states that he plans for his father to return home with him, where he is the caregiver for patient and son's . The son states that he has a O2 concentrator from [employer], that his father can use for his O2 concentrator. He states this is separate from his 's O2 concentrator. Son states that he has a nebulizer that his father can use, also. Son states he would be in agreement for [facility] (no preference), with Nursing, PT, Speech therapy for his father. Declines a Skilled stay for his father, son states he is the caregiver and takes very good care of his father and his . patient's son will drive him home upon DC and to call the above phone number. CM will set up HHS 10/15., and assist with further DC needs. DCPIA - Discharge Planning Initial Assessment Updated by [id number]: Bijal Smith on 10/15/19 5:54 pm * Is the patient Alert and Oriented? No * PCP Dr. Morton * Pharmacy [facility] * Preadmission Environment Home with Family * ADLs Partial Dependent * Partial ADLs (Assistance needed) Medication Management * Equipment Nebulizer * Other Equipment Nebulizer, O2 Concentrator, Walker, Shower Chair * List name and contact numbers for known caregivers / representatives who currently or will assist patient after discharge: Cezar Fox (son) [phone] * Verbal permission to speak to the caregivers and representatives has been obtained from the patient. Yes * Community resources currently utilized Home Health * Please name any agencies selected above. Unknown at this time * Additional services required to return to the preadmission environment? Yes * Can the patient safely return to the preadmission environment? Yes * Has this patient been hospitalized within the prior 30 days at any hospital? No Coverage Notice Reviewer: [id number] - Bijal Smith Notice Issued Date-Time: 10/16/2019 12:37 Notice Type: IM Discharge Notice Notice Delivered To: Patient Relationship to Patient: Self Automobile Sales Consultant Name: Zeke Fox Delivery Method: HAND - Hand Delivered Kandice Days: Prior Verbal Notification: Recipient Understood Notice: Yes Recipient Signature: Yes Med Rec Note Co-signed by Attending: Coverage Notice Comment: DC IMM signed and original to family. Last DP export: 10/16/19 11:59 am Patient Name: ZEKE FOX Page [phone] at 1505 All edits/amendments must be made on the electronic document DICTATION DATE: 10/16/19 1505 COUNTY MANAGER: MOON 10/16/19 1505 RPT#: [id number] DC DATE:10/16/19 STATUS: DIS IN [facility] [address] [place] [address] END OF REPORT
--- NOTE | 2019-10-17 08:34 | MORECARE ---
CASE MANAGEMENT DISCHARGE SUMMARY PATIENT: ZEKE FOX UNIT: [id number] ADM DATE: 10/08/19 AGE: 68 : 48 SEX: M ROOM/BED: D.2103 AUTHOR: NIDHI,DOC PHYSICIAN: REFERRING PHYSICIAN: CATALINA MURRAY MD DATE OF SERVICE: 10/17/19 Discharge Plan Patient Name: ZEKE FOX Facility: [facility]:[place] : 1950 Planned Disposition: Home Health Service Anticipated Discharge Date: 10/16/19 Discharge Date: 10/16/2019 Expected LOS: 8 Initial Reviewer: [email or web address] Initial Review Date: 10/08/2019 Generated: 10/17/19 9:33 am Comments DCP- Discharge Planning Updated by [id number]: Bijal Smith on 10/16/19 11:[address] Per Suleiman [facility] will accept patient for nursing, PT, aide. Faxed required information. DCP- Discharge Planning Updated by [email or web address]: Bijal Smith on 10/15/19 4:[address] CM had tried to contact the patient's son, Cezar Fox at 0900, in order to start a DC plan, but there was no answer and the message states that the mail box had not been set up. CM spoke with the patient's son, Cezar Fox @[phone], in regards to a DC plan for this patient. PCP: Dr. Morton. Pharmacy: [facility] and his father has been able to obtain all of his prescribed medications. DME: bailee shower chair, BSC. The son states that he plans for his father to return home with him, where he is the caregiver for patient and son's . The son states that he has a O2 concentrator from [employer], that his father can use for his O2 concentrator. He states this is separate from his 's O2 concentrator. Son states that he has a nebulizer that his father can use, also. Son states he would be in agreement for [facility] (no preference), with Nursing, PT, Speech therapy for his father. Declines a Skilled stay for his father, son states he is the caregiver and takes very good care of his father and his . patient's son will drive him home upon DC and to call the above phone number. CM will set up HHS 10/15., and assist with further DC needs. DCPIA - Discharge Planning Initial Assessment Updated by [id number]: Bijal Smith on 10/15/19 5:54 pm * Is the patient Alert and Oriented? No * PCP Dr. Morton * Pharmacy [facility] * Preadmission Environment Home with Family * ADLs Partial Dependent * Partial ADLs (Assistance needed) Medication Management * Equipment Nebulizer * Other Equipment Nebulizer, O2 Concentrator, Walker, Shower Chair * List name and contact numbers for known caregivers / representatives who currently or will assist patient after discharge: Cezar Fox (son) [phone] * Verbal permission to speak to the caregivers and representatives has been obtained from the patient. Yes * Community resources currently utilized Home Health * Please name any agencies selected above. Unknown at this time * Additional services required to return to the preadmission environment? Yes * Can the patient safely return to the preadmission environment? Yes * Has this patient been hospitalized within the prior 30 days at any hospital? No Coverage Notice Reviewer: [id number] - Bijal Smith Notice Issued Date-Time: 10/16/2019 12:37 Notice Type: IM Discharge Notice Notice Delivered To: Patient Relationship to Patient: Self Bomb Technician Name: Zeke Fox Delivery Method: HAND - Hand Delivered Kandice Days: Prior Verbal Notification: Recipient Understood Notice: Yes Recipient Signature: Yes Med Rec Note Co-signed by Attending: Coverage Notice Comment: DC IMM signed and original to family. Last DP export: 10/16/19 2:05 pm Patient Name: ZEKE FOX Page [phone] at 0834 All edits/amendments must be made on the electronic document DICTATION DATE: 10/17/19832 PHOTOGRAPHER LITHOGRAPHIC: MOON 10/17/19832 RPT#: [id number] DC DATE:10/16/19 STATUS: DIS IN [facility] [address] [facility] [place] [address] END OF REPORT
== END 2019-10-16 13:15 | disposition home health service (06) | DRG 193 ==
LOC: D.ER 10:36 → D.M2 13:20
PROVIDERS: Family Medicine; ADMIT Family Medicine; ATTEND Family Medicine
DX: J18.9 Pneumonia, unspecified organism (principal); J96.01 Acute respiratory failure with hypoxia; G93.41 Metabolic encephalopathy; J44.0 Chronic obstructive pulmonary disease with (acute) lower respiratory infection; J44.1 Chronic obstructive pulmonary disease with (acute) exacerbation; D64.9 Anemia, unspecified; I10 Essential (primary) hypertension; Z72.0 Tobacco use; E87.6 Hypokalemia

== ENCOUNTER 2019-10-16 18:57 | Inpatient (IN) | payer MEDICARE, MEDICAID ==
[~2019-10-16] VITALS: Ht 182.9 cm; Wt 49.6 kg
[~2019-10-16 18:57] MED LIST: IPRAT-ALBUT 0.5-3 ML UPD; OMNICEF300 MG PO; PREDNISONE20 MG PO; PULMICORT0.5 MG/21 UPD
[2019-10-16 19:38] LABS: BASOPHILS 0 % (0-2); EOSINOPHILS 0.5 % (0-7); HEMATOCRIT 28.5 % (42.0-54.0); HEMOGLOBIN 8.7 g/dL (13.5-17.5); IMMATURE GRANULOCYTES 0.5 % (0-5); LYMPHOCYTES 8.5 % (15-50); MCH 26.4 pg (26.0-34.0); MCHC 30.5 g/dL (31.0-37.0); MCV 86.4 fL (80.0-100.0); MEAN PLATELET VOLUME 8.8 fL (7.4-10.4); NEUTROPHILS 83.5 % (40-80); PLATELET COUNT 246 10x3/uL (130-400); WBC 10.7 10x3/uL (4.8-10.8)
[2019-10-16 19:47] LABS: ANION GAP 9.9 mmol/L (8-16); APTT 24.5 SECONDS (22.8-39.4); CALCIUM 8.1 mg/dL (8.5-10.1); CARBON DIOXIDE 29.2 mmol/L (21.0-32.0); CREATININE - SERUM 1.2 mg/dL (0.6-1.3); INR 1.07 (0.85-1.17); POTASSIUM - SERUM 4.1 mmol/L (3.5-5.1); PROTIME 13.8 SECONDS (11.6-15.0)
[2019-10-16 20:01] LABS: ALBUMIN 2.6 g/dL (3.4-5.0); BILIRUBIN - TOTAL 0.59 mg/dL (0.2-1.3); C-REACTIVE PROTEIN 4.6 mg/dL (0.0-0.9); MAGNESIUM - SERUM 2.3 mg/dL (1.8-2.4); PROTEIN - SERUM 6.5 g/dL (6.4-8.2); THYROID STIMULATING HORMONE 3.8 uIU/mL (0.36-3.74)
[2019-10-16 20:02] LABS: TROPONIN-I 0.016 ng/mL (0.000-0.060)
[2019-10-16 20:11] LABS: D-DIMER-QUANTITATIVE 7.95 ug/mLFEU (0.20-0.54)
[2019-10-16 20:58] VITALS: BP 136/71
--- NOTE | 2019-10-16 22:16 | NUR ---
PATIENT REMAINS IN [place]
--- NOTE | 2019-10-16 22:34 | NUR ---
BACK FROM NUCLEAR MED
[2019-10-16 22:46] LABS: BILIRUBIN NEGATIVE (NEGATIVE); GLUCOSE NEGATIVE (NEGATIVE); KETONE NEGATIVE (NEGATIVE); NITRITE NEGATIVE (NEGATIVE); UROBILINOGEN NORMAL (NORMAL)
[2019-10-16 22:58] VITALS: BP 113/80
--- NOTE | 2019-10-16 23:14 | NUR ---
EDY COMPLETE 1039
--- NOTE | 2019-10-16 23:30 | NUR ---
PT FOUND ON HANDS AND KNEES AT END OF BED IV STILL INFUSING DENIES INJURY. DID NOT HIT HEAD. PATIENT PLACED IN RECLINER AND BED ALARM ATTACHED CALL LIGHT WITHIN REACH
[2019-10-16 23:57] VITALS: BP 108/55
[2019-10-17] VITALS (8 sets, daily range): BP systolic 108–142; BP diastolic 44–76; Ht 182.9 cm; Wt 49.6 kg
[2019-10-17 05:30] LABS: % SATURATION 10 % (15-55); IRON 21 ug/dl (35-150); TOTAL IRON BIND CAPACITY 193 ug/dl (260-445); UNSAT IRON BIND CAPACITY 172 ug/dl (150-375)
[2019-10-17 11:26] LABS: ALBUMIN 2.5 g/dL (3.4-5.0); ANION GAP 12.8 mmol/L (8-16); BILIRUBIN - TOTAL 0.47 mg/dL (0.2-1.3); CALCIUM 7.8 mg/dL (8.5-10.1); CARBON DIOXIDE 26.5 mmol/L (21.0-32.0); CREATININE - SERUM 1.1 mg/dL (0.6-1.3); POTASSIUM - SERUM 4.3 mmol/L (3.5-5.1)
[2019-10-17 11:50] LABS: HEMATOCRIT 27.6 % (42.0-54.0); HEMOGLOBIN 8.6 g/dL (13.5-17.5); LYMPHOCYTES 9.3 % (15-50); MCH 26.9 pg (26.0-34.0); MCHC 31.2 g/dL (31.0-37.0); MCV 86.3 fL (80.0-100.0); MEAN PLATELET VOLUME 9.4 fL (7.4-10.4); PLATELET COUNT 269 10x3/uL (130-400); RDW 18.6 % (11.5-14.5)
--- NOTE | 2019-10-17 18:53 | NUR ---
PATIENT PULLED IV OUT OF RIGHT AC. TIP INTACT.
--- NOTE | 2019-10-17 19:45 | NUR ---
RESITED 20G IV RIGHT UPPER ARM X1 ATTEMPT. PT IS ORIENTED TO SELF ONLY. THROWING LEGS OFF SIDE OF BED, SETTING OFF BED ALARM. PT INCONTINET OF URINE. LINENS CHANGED. SCDS ON. PROVIDED DIET COLA. DENIES NEEDS. CL IN REACH, WILL CTM
--- NOTE | 2019-10-18 00:30 | NUR ---
PT ORIENTED TO SELF ONLY, LYING IN BED WITHOUT DISTRESS. HAS ATTEMPTED TO GET OUT BED SEVERAL TIMES. INCONTINENT OF URINE. BED BATH GIVEN AT THIS TIME. PT STATES HE FEELS SO MUCH BETTER. STAGE 3 TO COCCYX QUARTER SIZE, NONBLANCHABLE JOSE SIZE RED SPOTS AT LEFT LOWER BUTTOCK AND RIGHT LOWER BACK, AND BLANCHABLE RED SPOTS AT RIGHT LOWER BUTTOCK AND LEFT LOWER BACK NICKEL SIZE. MEPILEX APPLIED AND PT POSITONED ON PILLOWS. AUSTEN ON. NON SLIP SOCKS ON. SCDS ON. CL IN REACH, WILL CTM
[2019-10-18 04:00] VITALS: BP 161/95
[2019-10-18 05:31] LABS: HEMATOCRIT 25.9 % (42.0-54.0); HEMOGLOBIN 8.3 g/dL (13.5-17.5); LYMPHOCYTES 11.7 % (15-50); MCV 84.4 fL (80.0-100.0); MEAN PLATELET VOLUME 8.8 fL (7.4-10.4); NEUTROPHILS 80.7 % (40-80); PLATELET COUNT 232 10x3/uL (130-400); RBC 3.07 10x6/uL (4.20-6.10); RDW 18.2 % (11.5-14.5); WBC 7.2 10x3/uL (4.8-10.8)
[2019-10-18 05:37] LABS: CALC OSMOLALITY 270 mosm/kg (275-300); CALCIUM 7.8 mg/dL (8.5-10.1); CARBON DIOXIDE 28.1 mmol/L (21.0-32.0); CHLORIDE - SERUM 102 mmol/L (98-107); GLUCOSE 79 mg/dL (74-106); MAGNESIUM - SERUM 2.1 mg/dL (1.8-2.4); POTASSIUM - SERUM 3.8 mmol/L (3.5-5.1); SODIUM 135 mmol/L (136-145); eGFR NON AFRICAN AMERICAN 78 mL/min (90-120)
[2019-10-18 05:41] LABS: UREA NITROGEN 18 mg/dL (7-18)
--- NOTE | 2019-10-18 07:45 | NUR ---
BED ALARM SOUNDING, PT STANDING AT BEDSIDE, DIRECTED BACK TO BED, PT INCONT URINE, CONFUSED, CONT TO MONITOR
[2019-10-18 08:51] VITALS: BP 115/76
--- NOTE | 2019-10-18 12:34 | NUR ---
REFUSED TO WALK WITH PT, DID STAND AT BEDSIDE THEN RETUNED TO BED
[2019-10-18 14:02] VITALS: BP 118/70
[2019-10-18 17:09] VITALS: BP 119/63
[2019-10-18 20:00] VITALS: BP 115/70
--- NOTE | 2019-10-18 20:04 | NUR ---
PATIENT RESTING IN BED WITH NO S/S OF DISTRESS. CLEANED PATIENT UP AFTER INCONTINENT EPISODE. DENIES OTHER NEEDS. BED IN LOWEST POSITION, CALL LIGHT WITHIN REACH, AND BED ALARM ON. ENCOURAGED TO CALL IF HE HAS NEEDS. WILL CONTINUE TO MONITOR.
--- NOTE | 2019-10-18 21:05 | NUR ---
ADMINISTERED MEDS PER ORDERS. DENIES OTHER NEEDS. WILL CONTINUE TO MONITOR.
[2019-10-19 04:00] VITALS: BP 152/62
[2019-10-19 05:45] LABS: HEMATOCRIT 24.1 % (42.0-54.0); HEMOGLOBIN 7.7 g/dL (13.5-17.5); LYMPHOCYTES 12.1 % (15-50); MCH 27.1 pg (26.0-34.0); MCV 84.9 fL (80.0-100.0); MEAN PLATELET VOLUME 8.7 fL (7.4-10.4); NEUTROPHILS 84.4 % (40-80); PLATELET COUNT 236 10x3/uL (130-400); RBC 2.84 10x6/uL (4.20-6.10); RDW 18.7 % (11.5-14.5); WBC 6.5 10x3/uL (4.8-10.8)
[2019-10-19 06:05] LABS: ANION GAP 10.9 mmol/L (8-16); CALCIUM 7.7 mg/dL (8.5-10.1); CARBON DIOXIDE 25.9 mmol/L (21.0-32.0); CREATININE - SERUM 1.2 mg/dL (0.6-1.3); MAGNESIUM - SERUM 2.2 mg/dL (1.8-2.4); POTASSIUM - SERUM 3.8 mmol/L (3.5-5.1)
--- NOTE | 2019-10-19 07:16 | NUR ---
TAKEN TO CT PER BED,CONTRAST PROTOCOL GIVEN OVER NIGHT
[2019-10-19 08:59] VITALS: BP 177/78
[2019-10-19 12:52] VITALS: BP 156/99
--- NOTE | 2019-10-19 16:24 | NUR ---
REC CONSENT FROM JOAQUIN VICTORIA TO GIVE BLOOD TO PT
[2019-10-19 17:04] VITALS: BP 148/96
--- NOTE | 2019-10-19 18:00 | NUR ---
ONE UNIT OF BLOOD TO BE GIVEN, STARTED, CONT TO MONITOR, PT ALERT AND CONFUSED
[2019-10-19 20:00] VITALS: BP 163/68
[2019-10-20 04:00] VITALS: BP 142/78
[2019-10-20 04:50] LABS: BASOPHILS 0.1 % (0-2); CALC OSMOLALITY 273 mosm/kg (275-300); CALCIUM 8.4 mg/dL (8.5-10.1); CARBON DIOXIDE 26.1 mmol/L (21.0-32.0); CHLORIDE - SERUM 102 mmol/L (98-107); EOSINOPHILS 0.1 % (0-7); GLUCOSE 91 mg/dL (74-106); HEMATOCRIT 29.4 % (42.0-54.0); HEMOGLOBIN 9.5 g/dL (13.5-17.5); IMMATURE GRANULOCYTES 0.8 % (0-5); LYMPHOCYTES 9.7 % (15-50); MCH 27.9 pg (26.0-34.0); MCHC 32.3 g/dL (31.0-37.0); MCV 86.5 fL (80.0-100.0); MEAN PLATELET VOLUME 8.7 fL (7.4-10.4); MONOCYTES 4.5 % (2-11); NEUTROPHILS 84.8 % (40-80); PLATELET COUNT 246 10x3/uL (130-400); POTASSIUM - SERUM 3.8 mmol/L (3.5-5.1); RDW 18.9 % (11.5-14.5); SODIUM 136 mmol/L (136-145); UREA NITROGEN 18 mg/dL (7-18); WBC 15.6 10x3/uL (4.8-10.8); eGFR NON AFRICAN AMERICAN 78 mL/min (90-120)
--- NOTE | 2019-10-20 06:52 | NUR ---
PAGED TASH PLASCENCIA IN REGARDS TO FINDING PATIENT IN THE FLOOR AFTER PATIENT STATED HE SLIPPED AND FELL
--- NOTE | 2019-10-20 07:15 | NUR ---
LYING IN BED,WITHOUT DISTRESS.FALL PREVENTION IN PLACE WITH AUSTEN. DOOR OPEN. PATIENT IS VERY CONFUSED.
--- NOTE | 2019-10-20 08:00 | NUR ---
ASSESSMENT PER FLOW SHEET. PATIENT IS WITHOUT DISTRESS.FALL PREVENTION IN PLACE WITH AUSTEN.
[2019-10-20 09:05] VITALS: BP 125/68
--- NOTE | 2019-10-20 10:00 | NUR ---
HAS BEEN UP MULTIPLE TIMES.FALL PREVENTION IN PLACE WITH AUSTEN.PATIENT REISTRUCTED MULTIPLE TIMES NOT TO GET OUT OF BED.DOOR OPEN TO MONITOR.
[2019-10-20 13:06] VITALS: BP 107/77
[2019-10-20 18:04] VITALS: BP 113/76
[2019-10-20 20:00] VITALS: BP 124/63
--- NOTE | 2019-10-20 20:00 | NUR ---
PT SITTING UP IN BED WITHOUT DISTRESS, ORIENTED TO SELF. IV RIGHT UPPER ARM SL. SCDS ON. AUSTEN ON. WAITING ON ENCLOSURE BED TO BE DELIVERED. PT CONTINUES TO TRY AND CLIMB OUT OF BED. PROVIDED COLA AND ICE CREAM REQUESTED. DENIES OTHER NEEDS, WILL CTM
[2019-10-21 04:00] VITALS: BP 140/66
[2019-10-21 06:34] LABS: HEMATOCRIT 29.9 % (42.0-54.0); HEMOGLOBIN 9.6 g/dL (13.5-17.5); LYMPHOCYTES 13.9 % (15-50); MCH 28.1 pg (26.0-34.0); MCHC 32.1 g/dL (31.0-37.0); MCV 87.4 fL (80.0-100.0); MEAN PLATELET VOLUME 8.3 fL (7.4-10.4); NEUTROPHILS 79.9 % (40-80); PLATELET COUNT 261 10x3/uL (130-400); RBC 3.42 10x6/uL (4.20-6.10); RDW 19.1 % (11.5-14.5)
[2019-10-21 06:57] LABS: CALC OSMOLALITY 272 mosm/kg (275-300); CARBON DIOXIDE 30.2 mmol/L (21.0-32.0); CHLORIDE - SERUM 102 mmol/L (98-107); CREATININE - SERUM 0.9 mg/dL (0.6-1.3); GLUCOSE 86 mg/dL (74-106); MAGNESIUM - SERUM 2.1 mg/dL (1.8-2.4); PHOSPHOROUS 2.9 mg/dL (2.5-4.9); POTASSIUM - SERUM 3.8 mmol/L (3.5-5.1); SODIUM 136 mmol/L (136-145); UREA NITROGEN 18 mg/dL (7-18); eGFR NON AFRICAN AMERICAN 89 mL/min (90-120)
[2019-10-21 06:59] LABS: WBC 8.3 10x3/uL (4.8-10.8)
[2019-10-21 09:35] VITALS: BP 102/69
--- NOTE | 2019-10-21 10:00 | NUR ---
PATIENT PUT IN AUSTEN BED PER NURSE PROFESSOR OF PATHOLOGY. STATED HE TRIED TO GET OUT OF BED 2 TIMES. ALREADY FELL BEFORE. PATIENT HAS NO COMPLAINTS OR PROBLEMS. IV INTACT. CONFUSED AT TIMES. CALL LIGHT WITHIN REACH.
[2019-10-21 13:17] VITALS: BP 97/56
--- NOTE | 2019-10-21 13:31 | NUR ---
OT NOTE: PT ALERT AND MORE CONVERSIVE TODAY. REMAINS VERY CONFUSED. PT ABLE TO FEED SELF WITH SET UP; REPOSITIONED SELF INDEPENDENTLY IN AUSTEN BED. SIMPLE GROOMING INCLUDING WASHING FACE AND HANDS WITH WASHCLOTH AND SET UP. YOANNA CUNNINGHAM, OTR/L [phone]
--- NOTE | 2019-10-21 15:00 | NUR ---
Nutrition follow-up: Pt receiving a regular diet with po intake 100% of last 3 meals Labs reviewed Wt: 158# Pt placed in july bed for safety PO intake good at this time. RDN following.
--- NOTE | 2019-10-21 15:08 | CN ---
PATIENT NAME:MAYA COLE MEDICAL RECORD: [id number] : 46 LOCATION:[facility] ADMIT DATE: 10/16/19 ACCOUNT: [id number] CONSULTING PHYSICIAN: LIUDMILA PANDA MD REFERRING PHYSICIAN: GLENN SNIDER MD DATE OF CONSULTATION: 10/20/2019 IDENTIFYING DATA: The patient is 68 years old and he is admitted to the hospital on a voluntary basis. CHIEF COMPLAINT: Confusion. HISTORY OF PRESENT ILLNESS: The patient has a number of serious medical problems including hypertension, anemia, coronary artery disease, pulmonary embolism, community-acquired pneumonia, anemia, hypothyroidism and COPD. The patient has some ongoing confusion. He has not been disruptive or agitated in any serious way today. I have reviewed his medications and he is on steroids, which are likely resulting in ongoing issues with some mood lability. ASSESSMENT: Delirium. PLAN: The patient will be treated with scheduled dose of antipsychotic medication. He will also receive p.r.n. medication for any agitation. It is clear he is going to require 86-vdeo-a-day supervision. TRANSINT:[id number] Voice Confirmation ID: [id number] DOCUMENT ID: [id number] LIUDMILA PANDA MD at 1508 CC: [id number] DICTATION DATE: 10/20/19 171 ENVIRONMENTAL STUDIES PROFESSOR: 10/21/19 0005 ADM IN [facility] [address] [place] [id number]
[2019-10-21 17:47] VITALS: BP 98/58
--- NOTE | 2019-10-21 18:45 | NUR ---
PATIENT IN BED WITH IV NTACT. NO COMPLAINTS OR SIGNS OF DISTRESS. CALL LIGHT WITHIN REACH. AUSTEN BED OPEN AT THIS TIME. PATIENT SITTING UP EATING PUDDING.
[2019-10-21 20:00] VITALS: BP 110/65
--- NOTE | 2019-10-21 20:00 | NUR ---
PT SITTING UP IN BED EATING PUDDING WITHOUT DISTRESS, ORIENTED TO SELF ONLY. LEMON [place] SODA PROVIDED. DENIES OTHER NEEDS. CL IN REACH, WILL CTM
--- NOTE | 2019-10-21 22:00 | NUR ---
PT SITTING UP IN BED WITHOUT DISTRESS, TOOK HS MEDS WITHOUT DIFFICULTY. PT HAS YELLED OUT INTO HALLWAY MULTIPLE TIMES BUT UPON ENTERING ROOM PT COULD NOT TELL US WHAT HE WANTED. CHANGED LINENS AT THIS TIME, PT INCONTINENT OF URINE. TOOK HS MEDS WITHOUT DIFFICULTY. CL IN REACH, WILL CTM
--- NOTE | 2019-10-22 | NUR ---
PT LYING IN BED SLEEPING WITHOUT DISTRESS, WITHOUT NEEDS. WILL CTM
--- NOTE | 2019-10-22 02:00 | NUR ---
PT IN ENCLOSURE BED SLEEPING. INCONTINENT OF URINE, LINENS CHANGED. IMMEDIATELY WENT BACK TO SLEEP. CL IN REACH, WILL CTM
[2019-10-22 04:00] VITALS: BP 142/75
--- NOTE | 2019-10-22 04:00 | NUR ---
PT LYING IN BED SLEEPING WITHOUT DISTRESS, CL IN REACH, WILL CTM
[2019-10-22 05:48] LABS: CALC OSMOLALITY 276 mosm/kg (275-300); CALCIUM 8.2 mg/dL (8.5-10.1); CARBON DIOXIDE 31.7 mmol/L (21.0-32.0); CHLORIDE - SERUM 103 mmol/L (98-107); CREATININE - SERUM 0.9 mg/dL (0.6-1.3); GLUCOSE 93 mg/dL (74-106); MAGNESIUM - SERUM 2.1 mg/dL (1.8-2.4); PHOSPHOROUS 2.7 mg/dL (2.5-4.9); POTASSIUM - SERUM 4.1 mmol/L (3.5-5.1); SODIUM 137 mmol/L (136-145); UREA NITROGEN 20 mg/dL (7-18); eGFR NON AFRICAN AMERICAN 89 mL/min (90-120)
--- NOTE | 2019-10-22 06:00 | NUR ---
PT SITTING UP IN BED WITHOUT DISTRESS, ORIENTED TO SELF ONLY. YELLING OUT INTO HALLWAY FOR SOMEONE TO BRING HIM BREAKFAST. HAVE TOLD PT SEVERAL TIMES IT IS NOT TIME. OFFERED SNACKS, PT ONLY WANTS "REAL FOOD." GAVE PT LEMON [place] SODA. DENIES OTHER NEEDS BESIDES BREAKFAST TRAY. CL IN REACH, WILL CTM
[2019-10-22 06:13] LABS: HEMATOCRIT 29.4 % (42.0-54.0); HEMOGLOBIN 9.4 g/dL (13.5-17.5); LYMPHOCYTES 10.6 % (15-50); MCH 28.2 pg (26.0-34.0); MCV 88.3 fL (80.0-100.0); MEAN PLATELET VOLUME 8.9 fL (7.4-10.4); NEUTROPHILS 85.1 % (40-80); PLATELET COUNT 253 10x3/uL (130-400); RBC 3.33 10x6/uL (4.20-6.10); RDW 19.8 % (11.5-14.5)
[2019-10-22 06:17] LABS: WBC 10.7 10x3/uL (4.8-10.8)
--- NOTE | 2019-10-22 08:50 | NUR ---
OT NOTE: (DOS 10/21/2019) PT COMPLETED BED MOB WITH SPV. PT COMPLETED SELF FEEDING TASK WITH SETUP. PT COMPLETED FACE HYGIENE WITH SET UP. PT REQUIRED EXTENSIVE CUES FOR INCREASED SAFETY. 1136-12 LIZZIE PATIÑO COTA
[2019-10-22 09:07] VITALS: BP 96/46
[2019-10-22 12:50] VITALS: BP 130/58
--- NOTE | 2019-10-22 14:56 | NUR ---
OT NOTE: PT IN AUSTEN BED EATING..TELLS THIS THERAPIST THAT HE HAS TO GO TO THE BATHROOM QUICK; ASSISTED PT OOB WITH MIN/MOD ASSIST; AMB TO BATHROOM WITH STAPLE CUTTER; TRANSFER WITH MIN ASSIST; MAX ASSIST WITH TOILET HYGIENE; PT REQUIRED 1 SIT DOWN REST BREAK ON TOILET BEFORE HYGIENE COULD BE COMPLETED (DUE TO WEAKNESS) ; AMB BACK TO BED WITH VERY UNSTEADY GAIT AND MOD ASSIST; MAX ASSIST TO KERRI/DOFF PULL UPS; MOD ASSIST TO KERRI GOWN DUE TO DECREASED COORDINATION; SET UP FOR WASHING HANDS WTIH WASH CLOTH; SET UP TRAY AGAIN , BUT PT REPORTED THAT HE FELT SICK AND DID NOT WANT ANY MORE TO EAY.. CONSUMED APPROX 40%. PROVIDED CLEAN LINENS, CALL LIGHT WITHIN REACH, AND CLOSED SIDES ON AUSTEN BED. YOANNA CUNNINGHAM, OTR/L [phone]
[2019-10-22 16:45] VITALS: BP 102/51
[2019-10-22 20:00] VITALS: BP 115/68
--- NOTE | 2019-10-22 20:00 | NUR ---
PT LYING IN BED CALMLY, WITHOUT DISTRESS, ORIENTED TO SELF ONLY. DENIES NEEDS AT THIS TIME. CL IN REACH, WILL CTM
--- NOTE | 2019-10-22 22:00 | NUR ---
PT TOOK HS MEDS WITHOUT DIFFICULTY. LEMON [place] SODA PROVIDED. NO COMPLAINTS AT THIS TIME. CL IN REACH, WILL CTM
--- NOTE | 2019-10-23 | NUR ---
PT INCONTINENT OF URINE, LINENS CHANGED, PERICARE PROVIDED. CL IN REACH, WILL CTM
--- NOTE | 2019-10-23 02:00 | NUR ---
PT LYING IN BED SLEEPING WITHOUT DISTRESS, WILL CTM
[2019-10-23 04:00] VITALS: BP 115/57
--- NOTE | 2019-10-23 04:00 | NUR ---
PT LYING IN BED SLEEPING, WILL CTM
--- NOTE | 2019-10-23 06:00 | NUR ---
PT INCONTINENT OF URINE, BED BATH GIVEN, LINENS CHANGED. STATES HE IS READY FOR BREAKFAST. OFFERED SNACK, PT WANTS BREAKFAST TRAY. DENIES OTHER NEEDS. CL IN REACH, WILL CTM
[2019-10-23 06:15] LABS: CALC OSMOLALITY 275 mosm/kg (275-300); CALCIUM 7.7 mg/dL (8.5-10.1); CARBON DIOXIDE 30.2 mmol/L (21.0-32.0); CHLORIDE - SERUM 103 mmol/L (98-107); CREATININE - SERUM 0.9 mg/dL (0.6-1.3); GLUCOSE 86 mg/dL (74-106); MAGNESIUM - SERUM 2.1 mg/dL (1.8-2.4); PHOSPHOROUS 3.2 mg/dL (2.5-4.9); POTASSIUM - SERUM 3.8 mmol/L (3.5-5.1); SODIUM 137 mmol/L (136-145); UREA NITROGEN 22 mg/dL (7-18); eGFR NON AFRICAN AMERICAN 89 mL/min (90-120)
[2019-10-23 07:03] LABS: LYMPHOCYTES 13.5 % (15-50); MCH 28.6 pg (26.0-34.0); MCHC 32.3 g/dL (31.0-37.0); MCV 88.5 fL (80.0-100.0); MEAN PLATELET VOLUME 8.4 fL (7.4-10.4); NEUTROPHILS 81.4 % (40-80); PLATELET COUNT 232 10x3/uL (130-400); RDW 20.5 % (11.5-14.5); WBC 9.8 10x3/uL (4.8-10.8)
[2019-10-23 07:04] LABS: HEMATOCRIT 23.2 % (42.0-54.0); HEMOGLOBIN 7.5 g/dL (13.5-17.5); RBC 2.62 10x6/uL (4.20-6.10)
[2019-10-23 10:31] VITALS: BP 98/60
[2019-10-23 13:20] VITALS: BP 118/58
--- NOTE | 2019-10-23 15:58 | NUR ---
PRBC'S STARTED WITH NO S/S OF REACTION NOTED. 20G STARTED TO RUE WITH NO S/S OF INFECTION/INFILTRATION
[2019-10-23 17:38] VITALS: BP 105/36
--- NOTE | 2019-10-23 18:53 | NUR ---
OT NOTE: PT COMPLETED SUPINE TO SIT WITH MIN VERBAL CUES AND MIN A. PT COMPLETED SIDE ROLLING WITH CGA/MIN A SECONDARY TO DIFFICULYT SEQUENCING STEPS TO COMPLETE TASKS. PT COMPLETED BUE AROM EXS WITH VISUAL CUES. [phone] THANK YOU,YAMILETH ESPINAL
[2019-10-23 20:00] VITALS: BP 158/63
--- NOTE | 2019-10-23 20:00 | NUR ---
PT SITTING UP IN ENCLOSURE BED WITHOUT DISTRESS, ORIENTED TO SELF ONLY. ASSISTED PT TO BATHROOM AND BACK TO BED. CHANGED LINENS. PROVIDED LEMON [place] SODA. PT TOOK HS MEDS WITHOUT DIFFICULTY. DENIES OTHER NEEDS. CL IN REACH, WILL CTM
--- NOTE | 2019-10-23 22:00 | NUR ---
PT LYING IN BED SLEEPING WITHOUT DISTRESS, CL IN REACH, WILL CTM
--- NOTE | 2019-10-24 | NUR ---
PT SITTING UP IN BED, INCONTIENT OF URINE. CHANGED LINENS, MICK CARE PROVIDED. PT HUNGRY. PROVIDED CHOCOLATE PUDDING. DENIES OTHER NEEDS. WILL CTM
--- NOTE | 2019-10-24 02:00 | NUR ---
PT LYING IN BED SLEEPING, CL IN REACH, WILL CTM
[2019-10-24 04:00] VITALS: BP 137/67
--- NOTE | 2019-10-24 04:00 | NUR ---
PT HUNGRY, PROVIDED PUDDING. DENIES OTHER NEEDS. WILL CTM
--- NOTE | 2019-10-24 06:00 | NUR ---
PT LYING IN BED SLEEPING WITHOUT DISTRESS, CL IN REACH. WILL CTM
[2019-10-24 06:37] LABS: CALC OSMOLALITY 276 mosm/kg (275-300); CALCIUM 7.9 mg/dL (8.5-10.1); CHLORIDE - SERUM 103 mmol/L (98-107); CREATININE - SERUM 0.9 mg/dL (0.6-1.3); GLUCOSE 104 mg/dL (74-106); MAGNESIUM - SERUM 2.2 mg/dL (1.8-2.4); POTASSIUM - SERUM 3.4 mmol/L (3.5-5.1); SODIUM 137 mmol/L (136-145); UREA NITROGEN 22 mg/dL (7-18); eGFR NON AFRICAN AMERICAN 89 mL/min (90-120)
[2019-10-24 08:33] LABS: HEMATOCRIT 24.9 % (42.0-54.0); HEMOGLOBIN 8.2 g/dL (13.5-17.5); LYMPHOCYTES 15.3 % (15-50); MCH 29.3 pg (26.0-34.0); MCHC 32.9 g/dL (31.0-37.0); MCV 88.9 fL (80.0-100.0); MEAN PLATELET VOLUME 8.7 fL (7.4-10.4); NEUTROPHILS 78.6 % (40-80); PLATELET COUNT 211 10x3/uL (130-400); RDW 20.3 % (11.5-14.5); WBC 7.9 10x3/uL (4.8-10.8)
[2019-10-24 09:47] VITALS: BP 102/58
--- NOTE | 2019-10-24 10:48 | NUR ---
OT NOTE: THERAPIST ATTEMPTED TO ASSIST PT OUT OF AUSTEN BED TO WALK AROUND ROOM AND TO BATHROOM. PT DID NOT NEED TO USE BATHROOM; APPEARED FEARFUL OF GETTING OUT OF AUSTEN BED. PROVIDED WALKER AND BEGAN TO UNZIP BED, PT BECAME SLIGHTLY AGITATED MUMBLING SOMETHING ABOUT HITTING OR PUNCHING SOMEONE. PT VERY CONFUSED THINKING THAT IS WAS MOVING HIM "OUT BACK" AND HE DIDNT WANT TO GO OUT THERE. WILL RE ATTEMPT LATER. YOANNA CUNNINGHAM, OTR/L [phone]
[2019-10-24 12:33] LABS: HEMATOCRIT 26.4 % (42.0-54.0); HEMOGLOBIN 8.4 g/dL (13.5-17.5)
[2019-10-24 13:13] VITALS: BP 109/70
--- NOTE | 2019-10-24 17:06 | NUR ---
OT NOTE: PT WAS CONFUSED . PT THINKS HE IS GOING TO LONG-TERM . CARSON ATTEMPTED TO REDIRECT PT . PT REQUIRED MIN A FOR SIMPLE HYGIENE TASKS. PT COMPLETED SIDE ROLLING WITH MOD I. [phone] THANK YOU,YAMILETH ESPINAL
[2019-10-24 17:09] VITALS: BP 117/67
[2019-10-24 18:56] LABS: HEMATOCRIT 26.3 % (42.0-54.0); HEMOGLOBIN 8.3 g/dL (13.5-17.5)
[2019-10-24 20:44] VITALS: BP 90/65
[2019-10-25 00:48] VITALS: BP 94/58
[2019-10-25 00:48] LABS: HEMATOCRIT 24.4 % (42.0-54.0); HEMOGLOBIN 7.8 g/dL (13.5-17.5)
[2019-10-25 04:00] VITALS: BP 98/60
[2019-10-25 07:14] LABS: BASOPHILS 0 % (0-2); EOSINOPHILS 1.6 % (0-7); HEMATOCRIT 26.6 % (42.0-54.0); HEMOGLOBIN 8.4 g/dL (13.5-17.5); IMMATURE GRANULOCYTES 0.7 % (0-5); LYMPHOCYTES 16.7 % (15-50); MCH 28.4 pg (26.0-34.0); MCHC 31.6 g/dL (31.0-37.0); MCV 89.9 fL (80.0-100.0); MEAN PLATELET VOLUME 8.6 fL (7.4-10.4); PLATELET COUNT 191 10x3/uL (130-400); RBC 2.96 10x6/uL (4.20-6.10); RDW 21.3 % (11.5-14.5); WBC 7.7 10x3/uL (4.8-10.8)
[2019-10-25 07:43] LABS: CALC OSMOLALITY 277 mosm/kg (275-300); CALCIUM 8.1 mg/dL (8.5-10.1); CARBON DIOXIDE 28.3 mmol/L (21.0-32.0); CHLORIDE - SERUM 104 mmol/L (98-107); CREATININE - SERUM 0.8 mg/dL (0.6-1.3); GLUCOSE 80 mg/dL (74-106); MAGNESIUM - SERUM 2.2 mg/dL (1.8-2.4); PHOSPHOROUS 3.1 mg/dL (2.5-4.9); POTASSIUM - SERUM 4.3 mmol/L (3.5-5.1); SODIUM 139 mmol/L (136-145); UREA NITROGEN 15 mg/dL (7-18); eGFR NON AFRICAN AMERICAN > 90 mL/min (90-120)
[2019-10-25 08:00] VITALS: BP 108/64
--- NOTE | 2019-10-25 10:33 | NUR ---
PT LYING IN AUSTEN BED ASKED TO BE RELAEASED AND PROMISED TO BE GOOD, UNZIPPED BED AND ALLOWED PT TO SIT UP IN CHAIR FOR BREAKFAST. ASSISTED PT RESTROOM. PT IS VERY WEAK AND UNSTEADY. COULD BENEFIT FROM WALKER OR HAVING TWO PERSON ASSIST. NO OTHER NEEDS AT THIS TIME. CONTINUE WITH PLAN OF CARE
[2019-10-25 12:00] VITALS: BP 100/55
[2019-10-25 16:00] VITALS: BP 126/71
--- NOTE | 2019-10-25 17:55 | NUR ---
I have reviewed this patient and I concur with the Shift Assessment completed by the Licensed Practical Nurse today this shift.
[2019-10-25 20:00] VITALS: BP 111/63
--- NOTE | 2019-10-25 20:30 | NUR ---
ASSUMED CARE OF PATIENT AT 1900, PATIENT SEEMS ANXIOUS, CONFUSED, INSISTING ON GETTING UP TO BATHROOM WITHOUT CALLING FOR ASSISTANCE, BED ALARM ACTIVATED, PATIENT INCONTINENT OF STOOL AND URINE, PATIENT WEARS A BRIEF, PATIENT HAD LARGE BM, INSTRUCTED PATIENT TO STAY IN BED, CALL FOR ASSISTANCE, PATIENT HAS BEEN REORIENTED MULTIPLE TIME, HL TO RIGHT UPPER ARM INTACT, WILL CONTINUE TO MONITOR PATIENT
[2019-10-26 04:00] VITALS: BP 108/70
[2019-10-26 05:00] LABS: BASOPHILS 0 % (0-2); EOSINOPHILS 1.3 % (0-7); HEMATOCRIT 26.6 % (42.0-54.0); HEMOGLOBIN 8.3 g/dL (13.5-17.5); IMMATURE GRANULOCYTES 0.5 % (0-5); LYMPHOCYTES 18.4 % (15-50); MCH 28.4 pg (26.0-34.0); MCHC 31.2 g/dL (31.0-37.0); MCV 91.1 fL (80.0-100.0); MEAN PLATELET VOLUME 8.5 fL (7.4-10.4); NEUTROPHILS 74.8 % (40-80); PLATELET COUNT 201 10x3/uL (130-400); RBC 2.92 10x6/uL (4.20-6.10); RDW 21.6 % (11.5-14.5); WBC 7.8 10x3/uL (4.8-10.8)
[2019-10-26 05:19] LABS: % SATURATION 30 % (15-55); IRON 63 ug/dl (35-150); TOTAL IRON BIND CAPACITY 206 ug/dl (260-445); UNSAT IRON BIND CAPACITY 143 ug/dl (150-375)
[2019-10-26 05:48] LABS: CALC OSMOLALITY 280 mosm/kg (275-300); CALCIUM 8.4 mg/dL (8.5-10.1); CARBON DIOXIDE 29.7 mmol/L (21.0-32.0); CHLORIDE - SERUM 107 mmol/L (98-107); FERRITIN 572 ng/mL (3-244); GLUCOSE 88 mg/dL (74-106); MAGNESIUM - SERUM 2.2 mg/dL (1.8-2.4); POTASSIUM - SERUM 3.9 mmol/L (3.5-5.1); SODIUM 141 mmol/L (136-145); UREA NITROGEN 16 mg/dL (7-18); eGFR NON AFRICAN AMERICAN 78 mL/min (90-120)
[2019-10-26 05:49] LABS: PHOSPHOROUS 3.9 mg/dL (2.5-4.9)
--- NOTE | 2019-10-26 08:52 | NUR ---
resting in bed, no distress noted, confused, incont urine, sl in place, cont to monitor
[2019-10-26 09:04] VITALS: BP 100/51
[2019-10-26 13:00] VITALS: BP 133/66
--- NOTE | 2019-10-26 14:08 | NUR ---
OT NOTE: PT REMAINS CONFUSED. AUSTEN BED REMOVED AND PT IN REGULAR BED. PT SEEMS TO THINK THAT EVERYONE IS MAD AT HIM SO HE INSISTS ON HELPING CLEAN UP AND IS TRYING TO PUT TRASH CAN IN THE BED. EXPLAINED TO PT THAT NO ONE IS UPSET WITH HIM AND THAT WE WILL CLEAN UP HIS TABLE..NO FUNCTIONAL CHANGE NOTED. CONTINUES WITH WEAKNESS AND CONSTANT SUPERVISION DUE TO DECREASED SAFETY, IMPULSIVITY, AND CONFUSION.. YOANNA CUNNINGHAM, OTR/L [phone]
--- NOTE | 2019-10-26 15:58 | NUR ---
CONFUSED TODAY, THINKS THAT THE POLICE ARE AFTER HIM AND HE IS GOING TO [facility], STATES "I AM SCARED"
[2019-10-26 16:00] VITALS: BP 135/75
--- NOTE | 2019-10-26 19:30 | NUR ---
ASSUMED CARE OF PATIENT AT 1900, PATIENT CONFUSED, TRYING TO GET OUT OF BED, INSTRUCTED PATIENT TO CALL FOR ASSISTANCE, PATIENT IS NOT COMPLIANT, WILL CONTINUE TO MONITOR PATIENT, BED ALARM ON, CALL LIGHT WITHIN REACH
[2019-10-26 20:00] VITALS: BP 145/79
--- NOTE | 2019-10-26 20:20 | NUR ---
PATIENT IN ROOM YELLING FOR HELP, ONCE INTERED FOUND PATIENT ON FLOOR, PATIENT CONFUSED, SR UP X3, PATIENT ASSISTED BACK TO BED, PATIENT TOLERATED WELL, PATIENT DID NOT HIT HEAD, BED ALARM ON, NON SKID SOCKS ON, PROFESSOR OF RADIOLOGY NOTIFIED, TASH PLASCENCIA PAGED, WILL CONTINUE TO MONITOR PATIENT, INSTRUCTED PATIENT TO CALL FOR ASSISTANCE
--- NOTE | 2019-10-26 20:27 | NUR ---
CALLED JULIEN COLE, PATIENTS SON DUE TO FALL BUT NO ANSWER
[2019-10-27] VITALS: BP 142/76
[2019-10-27 05:45] LABS: BASOPHILS 0 % (0-2); EOSINOPHILS 1.8 % (0-7); HEMATOCRIT 26.7 % (42.0-54.0); HEMOGLOBIN 8.3 g/dL (13.5-17.5); IMMATURE GRANULOCYTES 0.5 % (0-5); LYMPHOCYTES 18.9 % (15-50); MCH 28.7 pg (26.0-34.0); MCHC 31.1 g/dL (31.0-37.0); MCV 92.4 fL (80.0-100.0); MONOCYTES 7.6 % (2-11); NEUTROPHILS 71.2 % (40-80); RBC 2.89 10x6/uL (4.20-6.10); RDW 22.1 % (11.5-14.5)
[2019-10-27 05:52] LABS: PLATELET COUNT 143 10x3/uL (130-400)
[2019-10-27 06:01] LABS: CALC OSMOLALITY 274 mosm/kg (275-300); CALCIUM 7.9 mg/dL (8.5-10.1); CARBON DIOXIDE 28.9 mmol/L (21.0-32.0); CHLORIDE - SERUM 105 mmol/L (98-107); CREATININE - SERUM 0.9 mg/dL (0.6-1.3); GLUCOSE 86 mg/dL (74-106); MAGNESIUM - SERUM 2.1 mg/dL (1.8-2.4); POTASSIUM - SERUM 3.9 mmol/L (3.5-5.1); SODIUM 138 mmol/L (136-145); UREA NITROGEN 13 mg/dL (7-18); eGFR NON AFRICAN AMERICAN 89 mL/min (90-120)
--- NOTE | 2019-10-27 07:40 | NUR ---
PATIENT IN AUSTEN BED WITH NO COMPLAINTS. STATES READY FOR BREAKFAST. CALL LIGHT WITH REACH.
[2019-10-27 08:00] VITALS: BP 93/60
--- NOTE | 2019-10-27 08:00 | NUR ---
AUSTEN BED UNZIPPED AND LEFT OPEN. TABLE PLACED ACROSS PATIENT TO SIT UP AND DRINK COFFEE AND WAIT FOR BREAKFAST. PATIENT HAS NO COMPLAINTS. CALL LIGHT WITHIN REACH. WILL CONTINUE TO MONITOR.
[2019-10-27 12:25] VITALS: BP 108/42
--- NOTE | 2019-10-27 12:30 | NUR ---
PATIENT GIVEN CHICKEN POT PIE AT LUNCH BECAUSE HE STATED HE DID NOT LIKE WHAT THEY SENT HIM. SITTING UP WITH CALL LIGHT WITHIN REACH. BED UNZIPPED.
--- NOTE | 2019-10-27 15:50 | NUR ---
OT NOTE: PT HAD FALL LAST NIGHT..BACK IN AUSTEN BED. PT KNEW THAT HE HAD FALLEN BUT WAS UNABLE TO RECALL WHAT HE WAS DOING OR HOW HE FELL. UNZIPPED AUSTEN BED AND ASSISTED PT TO EOB WITH MIN ASSIST. ATTEMPTED TO STAND WITH PT BUT HE STATED THAT HE COULDNT DO IT AT THIS TIME. THERAPIST WAS GOING TO AMB PT TO BATHROOM BUT HE STATED THAT HE WANTED TO USE THE URINAL.. MIN ASSIST REQUIRED WITH URINAL USE TO PREVENT SPILLAGE. ABLE TO WASH HANDS AND FACE WITH CLOTH AND SET UP..ASSISTED BACK IN BED AND PROVIDED WITH CALL LIGHT.. INSTRUCTED ON USAGE AGAIN. ZIPPED BED BACK. NO REQUESTS FROM PT. YONANA CUNNINGHAM, OTR/L [phone]
[2019-10-27 16:56] VITALS: BP 147/80
[2019-10-27 20:00] VITALS: BP 116/64
--- NOTE | 2019-10-27 20:50 | NUR ---
OT NOTE: PT SITTING UPRIGHT AT EOB. PT STATED FOOD IS HORRIBLE AND HE IS DONE WITH IT. PT REQUIRED EXTENSIVE COAXING TO FOR SIT TO SUPINE . PT COMPLETED HAND HYGIENE WITH TOTAL A SECONDARY TO STATING HE IS UNABLE TO CLEAN HANDS. PT COMPLETED FACE HYGIENE WITH MIN A. PT LAYING SUPINE AND RELAXED. PT BED ZIPPED UP. CHILI PEPPER GRINDER STATED PT HAD FALL LAST EVENING. [phone] THANK YOU,YAMILETH ESPINAL
--- NOTE | 2019-10-27 22:52 | NUR ---
PATIENT IS CONFUSED, TRYING TO GET OUT OF ENCLOSURE BED, HAD TO ZIP SIDES UP, WILL CONTINUE TO MONITOR PATIENT
[2019-10-28 05:28] LABS: BASOPHILS 0 % (0-2); EOSINOPHILS 1.5 % (0-7); HEMOGLOBIN 8.3 g/dL (13.5-17.5); IMMATURE GRANULOCYTES 0.5 % (0-5); LYMPHOCYTES 16.9 % (15-50); MCH 28.7 pg (26.0-34.0); MCHC 30.7 g/dL (31.0-37.0); MCV 93.4 fL (80.0-100.0); MEAN PLATELET VOLUME 8.7 fL (7.4-10.4); MONOCYTES 5.7 % (2-11); NEUTROPHILS 75.4 % (40-80); RBC 2.89 10x6/uL (4.20-6.10); RDW 22.4 % (11.5-14.5); WBC 6.2 10x3/uL (4.8-10.8)
[2019-10-28 06:05] LABS: PLATELET COUNT 187 10x3/uL (130-400)
[2019-10-28 06:40] LABS: GLUCOSE 99 mg/dL (74-106); PHOSPHOROUS 3.2 mg/dL (2.5-4.9); eGFR NON AFRICAN AMERICAN 78 mL/min (90-120)
[2019-10-28 06:42] LABS: UREA NITROGEN 18 mg/dL (7-18)
[2019-10-28 06:48] LABS: CALC OSMOLALITY 280 mosm/kg (275-300); CHLORIDE - SERUM 106 mmol/L (98-107); POTASSIUM - SERUM 3.8 mmol/L (3.5-5.1); SODIUM 140 mmol/L (136-145)
--- NOTE | 2019-10-28 09:24 | MORECARE ---
CASE MANAGEMENT DISCHARGE SUMMARY PATIENT: MAYA COLE UNIT: [id number] ADM DATE: 10/16/19 AGE: 68 : 48 SEX: M ROOM/BED: D.2219 AUTHOR: TREVIN TERRELL PHYSICIAN: REFERRING PHYSICIAN: GLENN SNIDER MD DATE OF SERVICE: 10/28/19 Discharge Plan Patient Name: MAYA COLE Facility: [facility]:[place] : 1950 Planned Disposition: Anticipated Discharge Date: Discharge Date: Expected LOS: Initial Reviewer: [email or web address] Initial Review Date: 10/17/2019 Generated: 10/28/19 10:23 am Patient Name: MAYA COLE Page 42479 at 0924 All edits/amendments must be made on the electronic document DICTATION DATE: 10/28/19923 SCALE EXPERT: MOON 10/28/19923 RPT#: [id number] DC DATE: STATUS: ADM IN [facility] [address] [place] [address] END OF REPORT
[2019-10-28 13:03] VITALS: BP 117/71
--- NOTE | 2019-10-28 13:40 | NUR ---
Nutrition follow-up: Pt remains in july bed 2/2 confusion. Diet: Regular as tolerated PO intake ~60% average of meals Asked TOWBOAT CAPTAIN to help pt fill out menus so he gets what he likes to eat. Labs reviewed Wt: 158# Will honor all food preferences. RDN following.
[2019-10-28 17:17] VITALS: BP 85/60
--- NOTE | 2019-10-28 18:51 | NUR ---
PATIENT IN BED. DENIES NEEDS OR PAIN. CLEANED UP AFTER DINNER. RESPIRATORY IN ROOM.
[2019-10-28 20:00] VITALS: BP 98/67
--- NOTE | 2019-10-28 20:00 | NUR ---
PT RESTING IN AUSTEN BED. AWAKE AND ALERT WITH CONFUSION. NO SIGNS OF DISTRESS. BREATHING EVEN AND UNLABORED. IV SITE RT UPPER ARM DRESSING CLEAN DRY AND INTACT. NO SIGNS OF INFECTION OR INFULTRATION. BOWEL SOUNDS ACTIVE. SKIN CLEAN DRY AND INTACT. DRESSING TO BUTTOCKS CLEAN DRY AND INTACT. WILL CONTINUE PLAN OF CARE. CALL LIGHT IN REACH. BED ZIPPED UP.
--- NOTE | 2019-10-28 22:00 | NUR ---
PT RESTING IN BED AUSTEN BED. SNACK GIVEN AND WATER. PT STATES NO NEEDS AT THIS TIME. WILL CONTINUE TO MONITOR.
[2019-10-29] VITALS: BP 101/50
--- NOTE | 2019-10-29 | NUR ---
PT RESTING IN BED. EYES CLOSED. NO SIGNS OF DISTRESS. BREATHING EVEN AND UNLABORED. AUSTEN BED ZIPPED UP. WILL CONTINUE TO CLOSELY MONITOR.
--- NOTE | 2019-10-29 02:00 | NUR ---
PT RESTING IN BED. EYES CLOSED. NO SIGNS OF DISTRESS. WILL CONTINUE TO CLOSELY MONITOR. AUSTEN BED ZIPPED UP.
[2019-10-29 04:00] VITALS: BP 115/53
--- NOTE | 2019-10-29 04:00 | NUR ---
FULL BED CHANGE DONE AT THIS TIME. PT MISSED THE URINAL HE SAID. WILL CONTINUE PLAN OF CARE.
[2019-10-29 05:54] LABS: BASOPHILS 0.2 % (0-2); EOSINOPHILS 1.7 % (0-7); HEMATOCRIT 27.5 % (42.0-54.0); HEMOGLOBIN 8.5 g/dL (13.5-17.5); IMMATURE GRANULOCYTES 0.3 % (0-5); LYMPHOCYTES 16.6 % (15-50); MCH 28.9 pg (26.0-34.0); MCHC 30.9 g/dL (31.0-37.0); MCV 93.5 fL (80.0-100.0); MEAN PLATELET VOLUME 8.6 fL (7.4-10.4); MONOCYTES 5.5 % (2-11); NEUTROPHILS 75.7 % (40-80); PLATELET COUNT 194 10x3/uL (130-400); RBC 2.94 10x6/uL (4.20-6.10)
[2019-10-29 06:30] LABS: CALC OSMOLALITY 271 mosm/kg (275-300); CALCIUM 8.1 mg/dL (8.5-10.1); CARBON DIOXIDE 27.6 mmol/L (21.0-32.0); CHLORIDE - SERUM 103 mmol/L (98-107); CREATININE - SERUM 0.9 mg/dL (0.6-1.3); GLUCOSE 91 mg/dL (74-106); PHOSPHOROUS 2.9 mg/dL (2.5-4.9); POTASSIUM - SERUM 3.7 mmol/L (3.5-5.1); SODIUM 135 mmol/L (136-145); UREA NITROGEN 18 mg/dL (7-18); eGFR NON AFRICAN AMERICAN 89 mL/min (90-120)
--- NOTE | 2019-10-29 07:03 | MORECARE ---
CASE MANAGEMENT DISCHARGE SUMMARY PATIENT: MAYA COLE UNIT: [id number] ADM DATE: 10/16/19 AGE: 68 : 48 SEX: M ROOM/BED: D.2219 AUTHOR: TREVIN TERRELL PHYSICIAN: REFERRING PHYSICIAN: GLENN SNIDER MD DATE OF SERVICE: 10/29/19 Discharge Plan Patient Name: MAYA COLE Facility: [facility]:[place] : 1950 Planned Disposition: Alf Facility Anticipated Discharge Date: Discharge Date: Expected LOS: Initial Reviewer: [email or web address] Initial Review Date: 10/17/2019 Generated: 10/29/19 8:03 am Comments DCP- Discharge Planning Updated by [email or web address]: Priscilla Ashraf on 10/28/19 8:[address] attempted to call patients son, but did not get an answer. Patient is current with [facility] . At this time he is still in a [place] Bed Last DP export: 10/28/19 8:24 a Patient Name: MAYA COLE Page 97182 at 0703 All edits/amendments must be made on the electronic document DICTATION DATE: 10/29/19702 PHOTOGRAPHIC SPECIALIST: MONO 10/29/19702 RPT#: [id number] DC DATE: STATUS: ADM IN [facility] [address] [place] [address] END OF REPORT
--- NOTE | 2019-10-29 07:10 | MORECARE ---
CASE MANAGEMENT DISCHARGE SUMMARY PATIENT: MAYA COLE UNIT: [id number] ADM DATE: 10/16/19 AGE: 68 : 48 SEX: M ROOM/BED: D.2219 AUTHOR: TREVIN TERRELL PHYSICIAN: REFERRING PHYSICIAN: GLENN SNIDER MD DATE OF SERVICE: 10/29/19 Discharge Plan Patient Name: MAYA COLE Facility: [facility] : 1950 Planned Disposition: Nursing Home Facility Anticipated Discharge Date: Discharge Date: Expected LOS: Initial Reviewer: [email or web address] Initial Review Date: 10/17/2019 Generated: 10/29/19 8:09 am Comments DCP- Discharge Planning Updated by [email or web address]: Priscilla Ashraf on 10/28/19 8:[address] attempted to call patients son, but did not get an answer. Patient is current with [facility]. At this time he is still in a [place] Bed DCPIA - Discharge Planning Initial Assessment Updated by [email or web address]: Priscilla Ashraf on 10/29/19 7:04 am * Is the patient Alert and Oriented? Yes * PCP [facility] * Pharmacy [facility] * Preadmission Environment Home with Family * ADLs Partial Dependent * Equipment Bedside Commode Nebulizer Oxygen Rolling Walker Shower Chair * List name and contact numbers for known caregivers / representatives who currently or will assist patient after discharge: JULIEN ( SON) [phone] OR [phone] * Verbal permission to speak to the caregivers and representatives has been obtained from the patient. Yes * Community resources currently utilized Home Health * Please name any agencies selected above. [facility] * Additional services required to return to the preadmission environment? Yes * Can the patient safely return to the preadmission environment? No * Has this patient been hospitalized within the prior 30 days at any hospital? Yes Last DP export: 10/29/19 6:04 a Patient Name: MAYA COLE Page 40409 at 0710 All edits/amendments must be made on the electronic document DICTATION DATE: 10/29/19 07 WASHER OFF: MOON 10/29/19 0710 RPT#: [id number] DC DATE: STATUS: ADM IN [facility] [address] [facility] [place] [address] END OF REPORT
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
--- NOTE | 2019-10-29 08:00 | NUR ---
PATIENT UP IN CHAIR WITH ALARM ON AT THIS TIME. IV INTACT. NO COMPLAINTS. WAITING FOR BREAKFAST. WILL CONTINUE TO MONITOR.
[2019-10-29 08:44] VITALS: BP 103/70
--- NOTE | 2019-10-29 11:45 | NUR ---
PATIENT UP IN CHAIR WITH IV INTACT. NO COMPLAINTS OR SIGNS OF DISTRESS. CHAIR ALARM ON. CALL LIGHT WITHIN REACH.
[2019-10-29 12:54] VITALS: BP 100/72
--- NOTE | 2019-10-29 14:17 | NUR ---
Nutrition follow-up: RDN helped pt with menu selections for today. Visited with pt during lunch and pt ate everything on his plate. Pt was also given some extra snacks for after lunch. Pt with good po intake and RDN will continue encourage po intake. RDN following.
--- NOTE | 2019-10-29 15:25 | NUR ---
OT NOTE: PT COMPLETED FACE HYGIENE WITH MIN VERBAL CUES. PT COMPLETED HAIR GROOMING WITH MIN A. PT COMPLETED SITTING BALANCE WITH CGA. PT CONTINUES TO EXHIBIT POOR SAFETY AWARENESS AND SELF LIMITING BEHAVIORS. [phone] THANK YOU,YAMILETH ESPINAL
--- NOTE | 2019-10-29 16:00 | NUR ---
PATIENT TIRED. ENCLOSURE BED DC'D. PLACED PATIENT IN REGULAR BED WITH BED ALARM ON. IV INTACT. CALL LIGHT WITHIN REACH.
--- NOTE | 2019-10-29 16:12 | NUR ---
OT NOTE: PT SITTING UP IN RECLINER. ATTEMPTED TO SIT PT UP WITH FEET ON FLOOR AND HE BEGAN C/O SEVERE PAIN IN R UE..EVERYTIME PT WAS TOUCHED IN R UE HE FLINCHED AND REPORTED PAIN. TOLD NURSING AND SHE WAS ABLE TO COME IN AND HAD PT MOVE R UE WITHOUT DIFFICULTY.. PT REMAINS VERY CONFUSED ..POOR COORDINATION WITH ADL TASKS..REFUSED TO STAND OR ATTEMPT TO AMBULATE.. YOANNA CUNNINGHAM, OTR/L [phone]
[2019-10-29 16:54] VITALS: BP 98/70
--- NOTE | 2019-10-29 18:45 | NUR ---
PATIENT IN BED WITH NO COMPLAINTS OR SIGNS OF DISTRESS. IV INTACT. CALL LIGHT WITHIN REACH. BA ON.
[2019-10-29 20:00] VITALS: BP 102/60
[2019-10-30] VITALS: BP 110/55
[2019-10-30 05:05] LABS: BASOPHILS 0.2 % (0-2); HEMATOCRIT 27.9 % (42.0-54.0); HEMOGLOBIN 8.7 g/dL (13.5-17.5); IMMATURE GRANULOCYTES 0.4 % (0-5); LYMPHOCYTES 21.4 % (15-50); MCHC 31.2 g/dL (31.0-37.0); MEAN PLATELET VOLUME 8.6 fL (7.4-10.4); PLATELET COUNT 181 10x3/uL (130-400); RDW 21.5 % (11.5-14.5)
--- NOTE | 2019-10-30 05:23 | NUR ---
I have reviewed this patient and I concur with the Shift Assessment completed by the Licensed Practical Nurse today this shift.
[2019-10-30 05:44] LABS: CALCIUM 8.2 mg/dL (8.5-10.1); CREATININE - SERUM 1.1 mg/dL (0.6-1.3)
--- NOTE | 2019-10-30 08:35 | NUR ---
AM MEDS. ASSESSMENT PER FLOW SHEET. ASSISTED TO BATHROOM AND PATIENT IS VERY UNSTEADY. HE ALSO IS CONFUSED. BED CHANGE AND PATIENT WASHED, INCONT OF URINE.ASSIST WITH MEAL SET UP. DOOR OPEN TO MONITOR. AUSTEN ALARM ON AND WORKING.
[2019-10-30 08:40] VITALS: BP 150/65
--- NOTE | 2019-10-30 09:51 | NUR ---
Nutrition follow-up: Pt weighed with bedscale this am. Wt: 109.1# bmi: 14.8 Labs reviewed Pt does not remember if he ate a good breakfast or not. Pt is now assessed with severe malnutrition AEB the following: Phenotypic criteria: 1. BMI: 14.8 in a 68 year old 2. Observed severe muscle, fat loss to all extremeties; clavicles, scapulas, shoulders. 3. Pt with wt loss but not sure if admit wt correct Etiologic criteria: 1. Reduced nutritional intake > 50% of estimated energy needs for > 2 weeks Pt may only eat good at one meal a day. RDN has filled out daily menus through SundayNovember 01 due to pt will not fill out menus and refuses help with menus. RDN has added snacks for pt to keep at bedside. Pt being provided nutritional supplement at every meal. RDN following.
--- NOTE | 2019-10-30 12:25 | NUR ---
WATER PROVIDED. PATINT WITHOUT DISTRESS. DOOR OPEN
[2019-10-30 12:41] VITALS: BP 119/82
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
[2019-10-30 16:21] VITALS: BP 117/62
--- NOTE | 2019-10-30 16:53 | NUR ---
OT NOTE: PT COMPLETED BUE AROM EXS TOLERATED. PT COMPLETED FACE HYGIENE WITH SETUP.PT COMPLETED HAIR GROOMING WITH SETUP. PT COMPLETED SIDE ROLLING WITH SBA. PT EXHIBITED CONTINUED CONFUSION AND REQUIRE REDIRECTION. [phone] LIZZIE PATIÑO COTA
--- NOTE | 2019-10-30 18:46 | NUR ---
REMAINS WITHOUT CHANGE. CONT PLAN OF CARE
[2019-10-30 20:00] VITALS: BP 124/60
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
[2019-10-31] VITALS: BP 101/63
[2019-10-31 04:00] VITALS: BP 113/67
[2019-10-31 05:02] LABS: BASOPHILS 0.2 % (0-2); HEMATOCRIT 28.5 % (42.0-54.0); HEMOGLOBIN 8.9 g/dL (13.5-17.5); IMMATURE GRANULOCYTES 0.5 % (0-5); MCH 29.3 pg (26.0-34.0); MCHC 31.2 g/dL (31.0-37.0); MCV 93.8 fL (80.0-100.0); MEAN PLATELET VOLUME 8.1 fL (7.4-10.4); MONOCYTES 7.3 % (2-11); PLATELET COUNT 192 10x3/uL (130-400); RBC 3.04 10x6/uL (4.20-6.10); RDW 21.1 % (11.5-14.5); WBC 5.6 10x3/uL (4.8-10.8)
[2019-10-31 05:27] LABS: ANION GAP 8.4 mmol/L (8-16); CALCIUM 8.4 mg/dL (8.5-10.1); CARBON DIOXIDE 29.3 mmol/L (21.0-32.0); CREATININE - SERUM 1.2 mg/dL (0.6-1.3); POTASSIUM - SERUM 3.7 mmol/L (3.5-5.1)
--- NOTE | 2019-10-31 08:30 | NUR ---
ASSESSMENT PER FLOW SHEET. PATIENT IS WITHOUT DISTRESS.FALL PREVENTION IN PLACE WITH AUSTEN MAT ON AND WORKING. DOOR OPEN
[2019-10-31 08:49] VITALS: BP 126/69
[2019-10-31 12:47] VITALS: BP 118/64
--- NOTE | 2019-10-31 12:49 | NUR ---
PATIENT IS WITHOUT DISTRESS. ASSIST WITH MEAL SET UP.
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
--- NOTE | 2019-10-31 15:26 | NUR ---
OT NOTE: (AM) PT COMPLETED BUE AROM EXS TOLERATED. PT COMPLETED SUPINE TO SIT WITH MIN A. PT COMPLETED EOB SITTING WITH SBA. (PM) PT COMPLETED BED MOB TASKS WITH MIN A. PT COMPLETED UB/LB BATHING TASKS WITH MOD/MAX A. PT REQUIRED EXTENSIVE CUES FOR ATTENTION TO TASKS. [phone];[phone] THANK YOU,YAMILETH ESPINAL
[2019-10-31 16:00] VITALS: BP 117/65
--- NOTE | 2019-10-31 18:21 | NUR ---
REMAINS WITHOUT NEEDS. STILL CONFUSION AT TIMES. ATTEMPTED TO GET OUT OF BED MULTIPLE TIMES TODAY.CONT PLAN OF CARE
[2019-10-31 20:00] VITALS: BP 118/58
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
[2019-11-01] VITALS: BP 107/60
--- NOTE | 2019-11-01 03:43 | NUR ---
I have reviewed this patient and I concur with the Shift Assessment completed by the Licensed Practical Nurse today this shift.
[2019-11-01 04:00] VITALS: BP 131/71
[2019-11-01 06:17] LABS: BASOPHILS 0 % (0-2); HEMATOCRIT 25.7 % (42.0-54.0); HEMOGLOBIN 8.1 g/dL (13.5-17.5); IMMATURE GRANULOCYTES 0.5 % (0-5); MCH 29.2 pg (26.0-34.0); MCHC 31.5 g/dL (31.0-37.0); MCV 92.8 fL (80.0-100.0); MEAN PLATELET VOLUME 8.3 fL (7.4-10.4); MONOCYTES 9.7 % (2-11); NEUTROPHILS 71.8 % (40-80); PLATELET COUNT 205 10x3/uL (130-400); RBC 2.77 10x6/uL (4.20-6.10); RDW 20.5 % (11.5-14.5); WBC 5.9 10x3/uL (4.8-10.8)
[2019-11-01 06:50] LABS: CALC OSMOLALITY 270 mosm/kg (275-300); CARBON DIOXIDE 26.3 mmol/L (21.0-32.0); CHLORIDE - SERUM 103 mmol/L (98-107); GLUCOSE 90 mg/dL (74-106); POTASSIUM - SERUM 3.8 mmol/L (3.5-5.1); SODIUM 134 mmol/L (136-145); UREA NITROGEN 20 mg/dL (7-18)
[2019-11-01 06:51] LABS: CREATININE - SERUM 0.7 mg/dL (0.6-1.3); eGFR NON AFRICAN AMERICAN > 90 mL/min (90-120)
--- NOTE | 2019-11-01 08:15 | NUR ---
PATIENT IN BED WITH IV INTACT. NO COMPLAINTS OR SIGNS OF DISTRESS. CALL LIGHTS WITHIN REACH.
[2019-11-01 09:18] VITALS: BP 128/74
--- NOTE | 2019-11-01 11:00 | NUR ---
ASSISTED PATIENT TO BR AND THEN UP TO CHAIR. CHANGED GOWN AND BRIEFS. IV INTACT. CHAIR ALARM ON. CALL LIGHT WITHIN REACH.
--- NOTE | 2019-11-01 12:30 | NUR ---
PATIENT DROPPED PLATE IN FLOOR AND BROKE IT AFTER EATING. CHANGED PATIENT AND CLEANED UP. IV INTACT. CALL LIGHT WITHIN REACH.
[2019-11-01 13:21] VITALS: BP 140/71
--- NOTE | 2019-11-01 14:00 | NUR ---
PUT PATIENT BACK IN BED BECAUSE HE KEEPS TRYING TO GET UP OUT OF CHAIR. STATED HE IS TIRED. BED ALARM ON. CALL LIGHT WITHIN REACH.
[2019-11-01 16:35] VITALS: BP 135/65
--- NOTE | 2019-11-01 17:50 | NUR ---
PATIENT THREW PLATE IN FLOOR AND BROKE IT AFTER EATING DINNER. REQUESTED FOR DIETARY TO BRING STYROFOAM PLATES. VERBALIZED UNDERSTANDING. PATIENT CLEANED UP AND BED CHANGED. IV INTACT. VOIDED AT THIS TIME. CALL LIGHT WITHIN REACH. BED ALARM ON.
--- NOTE | 2019-11-01 18:45 | NUR ---
PATIENT IN BED WITH IV INTACT. NO COMPLAINTS OR SIGNS OF DISTRESS. BED ALARM ON. CALL LIGHT WITHIN REACH.
--- NOTE | 2019-11-01 19:00 | NUR ---
BEDSIDE REPORT RECEIVED AND CARE OF PT ASSUMED. PT LYING IN LOW WILLS'S POSITION WATCHING TV...ORIENTED TO PERSON ONLY. IV TO RIGHT UPPER ARM SALINE LOCKED. BED ALARM IN USE FOR SAFETY.
[2019-11-01 20:00] VITALS: BP 118/70
--- NOTE | 2019-11-01 21:31 | NUR ---
HS MEDICATIONS GIVEN. WILL CONTINUE TO MONITOR FOR NEEDS.
--- NOTE | 2019-11-02 03:15 | NUR ---
PT BATHED AND ALL LINENS AND GOWN CHANGED. CHANGED DRESSING ON PRESSURE ULCERATION ON COCCYX....MEASURES 4 X 5 CM X 0.5 CM, STAGE 2 WITH SOME PINK DRAINAGE. CLEANSED AND PLACED NEW MEPILEX DRESSING. POSITIONED ONTO LEFT SIDE WITH PILLOW. SIDE RAILS UP X3 AND BED ALARM IN USE FOR SAFETY.
[2019-11-02 04:00] VITALS: BP 130/50
[2019-11-02 06:47] LABS: BASOPHILS 0.2 % (0-2); EOSINOPHILS 3.1 % (0-7); HEMATOCRIT 27.2 % (42.0-54.0); HEMOGLOBIN 8.5 g/dL (13.5-17.5); IMMATURE GRANULOCYTES 0.2 % (0-5); LYMPHOCYTES 20.7 % (15-50); MCH 29.1 pg (26.0-34.0); MCHC 31.3 g/dL (31.0-37.0); MCV 93.2 fL (80.0-100.0); MEAN PLATELET VOLUME 8.3 fL (7.4-10.4); MONOCYTES 8.7 % (2-11); NEUTROPHILS 67.1 % (40-80); PLATELET COUNT 200 10x3/uL (130-400); RBC 2.92 10x6/uL (4.20-6.10); RDW 20.2 % (11.5-14.5); WBC 4.8 10x3/uL (4.8-10.8)
[2019-11-02 06:55] LABS: CALC OSMOLALITY 276 mosm/kg (275-300); CALCIUM 8.3 mg/dL (8.5-10.1); CARBON DIOXIDE 28.5 mmol/L (21.0-32.0); CHLORIDE - SERUM 105 mmol/L (98-107); GLUCOSE 99 mg/dL (74-106); POTASSIUM - SERUM 3.9 mmol/L (3.5-5.1); SODIUM 137 mmol/L (136-145); UREA NITROGEN 20 mg/dL (7-18); eGFR NON AFRICAN AMERICAN 89 mL/min (90-120)
[2019-11-02 06:56] LABS: CREATININE - SERUM 0.9 mg/dL (0.6-1.3)
[2019-11-02 08:00] VITALS: BP 109/62
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
[2019-11-02 13:30] VITALS: BP 98/59
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
[2019-11-02 18:26] VITALS: BP 119/66
--- NOTE | 2019-11-02 19:00 | NUR ---
BEDSIDE REPORT RECEIVED AND CARE OF PT ASSUMED. PT LYING IN SUPINE POSITION WATCHING TV. IV TO RIGHT UPPER ARM SALINE LOCKED. BED ALARM IN USE FOR SAFETY.
[2019-11-02 20:00] VITALS: BP 102/52
--- NOTE | 2019-11-02 22:04 | NUR ---
GAVE MISTY CRACKERS FOR HS SNACK.
[2019-11-03] VITALS: BP 96/49
[2019-11-03 04:00] VITALS: BP 123/58
[2019-11-03 05:21] LABS: BASOPHILS 0.2 % (0-2); HEMATOCRIT 27.8 % (42.0-54.0); HEMOGLOBIN 8.6 g/dL (13.5-17.5); IMMATURE GRANULOCYTES 0.4 % (0-5); LYMPHOCYTES 17.4 % (15-50); MCH 28.8 pg (26.0-34.0); MCHC 30.9 g/dL (31.0-37.0); MEAN PLATELET VOLUME 8.4 fL (7.4-10.4); MONOCYTES 10.7 % (2-11); NEUTROPHILS 69.3 % (40-80); PLATELET COUNT 211 10x3/uL (130-400); RBC 2.99 10x6/uL (4.20-6.10); RDW 19.4 % (11.5-14.5); WBC 5.1 10x3/uL (4.8-10.8)
[2019-11-03 05:28] LABS: CALC OSMOLALITY 277 mosm/kg (275-300); CARBON DIOXIDE 29.1 mmol/L (21.0-32.0); CHLORIDE - SERUM 106 mmol/L (98-107); CREATININE - SERUM 0.9 mg/dL (0.6-1.3); GLUCOSE 100 mg/dL (74-106); POTASSIUM - SERUM 3.8 mmol/L (3.5-5.1); SODIUM 138 mmol/L (136-145); UREA NITROGEN 17 mg/dL (7-18); eGFR NON AFRICAN AMERICAN 89 mL/min (90-120)
--- NOTE | 2019-11-03 07:55 | NUR ---
PT RESTING IN BED, RESP EVEN AND UNLABORED. DENIES PAIN AT THIS TIME. PT VOICES NEED TO VOID. HE TAKES URINAL AND HOLDS IN IN AIR AND STATES THAT HE IS GOING TO URINATE. ASSISTED PT WITH PLACING URINAL FOR VOIDING. SALINE LOC TO RIGHT UPPER ARM INTACT. SITE WITHOUT REDNESS OR EDEMA. DENIES FURTHER NEEDS AT THIS TIME. CL WITHIN REACH. ENCOURAGED TO CALL WITH NEEDS. CONTINUE POC
[2019-11-03 08:41] VITALS: BP 118/60
[2019-11-03 11:45] VITALS: BP 107/59
--- NOTE | 2019-11-03 13:24 | NUR ---
Nutrition follow-up: Diet: Regular as tolerated PO intake ~85% average of last 9 meals [address]N has been filling out pts menus with extra food items. Wt: 109# +BM RDN following.
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
[2019-11-03 16:40] VITALS: BP 117/67
--- NOTE | 2019-11-03 19:00 | NUR ---
BEDSIDE REPORT RECEIVED AND CARE OF PT ASSUMED. PT UP IN RESTROOM HAVING BM AT THIS TIME, WITH NURSE AT HIS SIDE. IV TO RIGHT UPPER ARM SALINE LOCKED. BED ALARM IN USE. WILL MONITOR FOR NEEDS.
[2019-11-03 20:00] VITALS: BP 99/45
--- NOTE | 2019-11-03 20:00 | NUR ---
PT BATHED AND ALL LINENS AND GOWN CHANGED. POSITIONED FOR COMFORT.
--- NOTE | 2019-11-03 20:05 | NUR ---
HS MEDICATIONS GIVEN. WILL CONTINUE TO MONITOR FOR NEEDS.
[2019-11-04] VITALS: BP 104/71
[2019-11-04 04:00] VITALS: BP 112/61
[2019-11-04 05:15] LABS: CALC OSMOLALITY 273 mosm/kg (275-300); CALCIUM 8.3 mg/dL (8.5-10.1); CARBON DIOXIDE 28.2 mmol/L (21.0-32.0); CHLORIDE - SERUM 104 mmol/L (98-107); CREATININE - SERUM 0.9 mg/dL (0.6-1.3); GLUCOSE 99 mg/dL (74-106); POTASSIUM - SERUM 3.3 mmol/L (3.5-5.1); SODIUM 137 mmol/L (136-145); UREA NITROGEN 13 mg/dL (7-18); eGFR NON AFRICAN AMERICAN 89 mL/min (90-120)
[2019-11-04 05:16] LABS: BASOPHILS 0.2 % (0-2); EOSINOPHILS 2.7 % (0-7); HEMATOCRIT 28.2 % (42.0-54.0); HEMOGLOBIN 8.8 g/dL (13.5-17.5); IMMATURE GRANULOCYTES 0.4 % (0-5); LYMPHOCYTES 21.8 % (15-50); MCH 28.9 pg (26.0-34.0); MCHC 31.2 g/dL (31.0-37.0); MCV 92.5 fL (80.0-100.0); MEAN PLATELET VOLUME 8.3 fL (7.4-10.4); MONOCYTES 11.4 % (2-11); NEUTROPHILS 63.5 % (40-80); PLATELET COUNT 226 10x3/uL (130-400); RBC 3.05 10x6/uL (4.20-6.10); WBC 4.5 10x3/uL (4.8-10.8)
--- NOTE | 2019-11-04 08:22 | NUR ---
OOT NOTE: (DOS 11/03/2019) PT COMPLETED POSITIONING WITH MIN A. PT COMPLETED BUE AROM ACTIVITIES WITH FUNCTIONAL TASKS WITH MOD CUES. PT COMPLETED HAND AND FACE HYGIENE WITH SETUP. [id number] THANK YOU,YAMILETH ESPINAL
[2019-11-04 08:42] VITALS: BP 126/62
--- NOTE | 2019-11-04 08:55 | NUR ---
LYING IN BED,WITHOUT SIGNS OF DISTRESS. DOOR OPEN TO MONITOR
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
[2019-11-04 12:45] VITALS: BP 124/57
--- NOTE | 2019-11-04 15:57 | NUR ---
OT NOTE: (AM) PT COMPLETED SUPINE TO SIT WITH SBA. PT COMPLETED ADL MOB WITH RW REQUIRED MIN A. PT COMPLETED UB HYGIENE TASKS WITH MOD A. PT WOULD BENEFIT FROM FEEDING ASSISTANCE. NUSING AWARE. PT EXHIBITED IMPAIRED PROCESSING TO COMPLETE 2 STEP ACTIVITY WITH MOD A. (PM) PT COMPLETED LB HYGIENE TASKS WITIH MAX A. PT COMPLETED SIDE ROLLING WITH TACTILE/VERBAL CUES. [phone] THANK YOU,YAMILETH ESPINAL
[2019-11-04 17:00] VITALS: BP 158/74
--- NOTE | 2019-11-04 19:00 | NUR ---
PATIENT ALERT BUT CONFUSED. ATTEMPTED TO REORIENT PATIENT TO TIME AND PLACE. PATIENT FOLLOWS COMMANDS. IN BED WITH SIDE RAILS UP X 2. BED ALARM ON FOR SAFETY. PROVIDED MISTY REA PER REQUEST. DENIES FURTHER NEEDS AT THIS TIME. CPOC.
[2019-11-04 20:00] VITALS: BP 110/58
--- NOTE | 2019-11-04 20:03 | NUR ---
ASSISTED PATIENT TO BSC. PATIENT INCONTINENT OF BOWEL IN BRIEF. CLEANED AND RETURNED TO BED SAFELY. BED ALARM ON. CLOSE TO NURSES STATION FOR MONITORING.
--- NOTE | 2019-11-04 22:10 | NUR ---
INCONTINENT OF BOWEL AND BLADDER. CLEANED, CHANGED SHEETS, RETURNED TO BED SAFELY. FALL PRECAUTIONS IN PLACE. CPOC.
--- NOTE | 2019-11-05 03:56 | NUR ---
RESTING WITH NO SIGNS OR SYMPTOMS OF DISTRESS.FALL PRECAUTIONS REMAIN IN PLACE. CPOC.
[2019-11-05 04:00] VITALS: BP 115/58
[2019-11-05 04:59] LABS: BASOPHILS 0.2 % (0-2); EOSINOPHILS 2.2 % (0-7); HEMATOCRIT 27.6 % (42.0-54.0); HEMOGLOBIN 8.6 g/dL (13.5-17.5); IMMATURE GRANULOCYTES 0.2 % (0-5); LYMPHOCYTES 24.5 % (15-50); MCH 28.9 pg (26.0-34.0); MCHC 31.2 g/dL (31.0-37.0); MCV 92.6 fL (80.0-100.0); MEAN PLATELET VOLUME 8.1 fL (7.4-10.4); NEUTROPHILS 63.9 % (40-80); PLATELET COUNT 214 10x3/uL (130-400); RBC 2.98 10x6/uL (4.20-6.10); RDW 18.9 % (11.5-14.5); WBC 4.6 10x3/uL (4.8-10.8)
[2019-11-05 05:25] LABS: CALC OSMOLALITY 279 mosm/kg (275-300); CALCIUM 8.4 mg/dL (8.5-10.1); CARBON DIOXIDE 27.5 mmol/L (21.0-32.0); CHLORIDE - SERUM 107 mmol/L (98-107); CREATININE - SERUM 0.8 mg/dL (0.6-1.3); GLUCOSE 98 mg/dL (74-106); SODIUM 140 mmol/L (136-145); UREA NITROGEN 15 mg/dL (7-18); eGFR NON AFRICAN AMERICAN > 90 mL/min (90-120)
[2019-11-05 05:29] LABS: POTASSIUM - SERUM 4.2 mmol/L (3.5-5.1)
[2019-11-05 08:00] VITALS: BP 98/52
--- NOTE | 2019-11-05 08:29 | MORECARE ---
CASE MANAGEMENT DISCHARGE SUMMARY PATIENT: MAYA COLE UNIT: [id number] ADM DATE: 10/16/19 AGE: 68 : 48 SEX: M ROOM/BED: D.2219 AUTHOR: NIDHI,DOC PHYSICIAN: REFERRING PHYSICIAN: GLENN SNIDER MD DATE OF SERVICE: 11/05/19 Discharge Plan Patient Name: MAYA COLE Facility: [facility]:[place] : 1950 Planned Disposition: Long-Term Facility Anticipated Discharge Date: Discharge Date: Expected LOS: Initial Reviewer: [email or web address] Initial Review Date: 10/17/2019 Generated: 11/05/19 9:28 am Comments DCP- Discharge Planning Updated by [id number]: Priscilla Ashraf on 11/05/19 7:[address] RECEIVED AUTH AND ACCEPTANCE FROM [facility] TODAY, HE WILL BE DISCHARGED TO A SKILLED BED BY THEIR TRANSPORTATION DCP- Discharge Planning Updated by [id number]: Priscilla Ashraf on 11/04/19 9:[address] RECEIVED [facility]ING BACK, [facility] IS TRYING TO REACH THE SON SO THEY CAN ACCEPT. AT THIS TIME WE CAN NOT GET A HOLD OF HIM DCP- Discharge Planning Updated by [email or web address]: Priscilla Ashraf on 11/03/19 3:[address] MING COMPLETED AND SENT FOR APPROVAL. AUTH IS PENDING FROM [facility]. CM TO FOLLOW AND ASSIST DCP- Discharge Planning Updated by [id number]: Justine Boyd on 11/02/19 3:[address] CM received order to evaluate patient's 02 needs and set up for [facility] updrafts 3-4 times daily on discharge. Patient's plan at this time is to go to [place]. CM will make sure facility is aware upon discharge. DCP- Discharge Planning Updated by [email or web address]: Priscilla Ashraf on 10/31/19 1:[address] Called [facility] about the status and she was looking into it and would let me know DCP- Discharge Planning Updated by [email or web address]: Priscilla Ashraf on 10/30/19 12:[address] REFERRAL SENT TO [facility] AT [facility] DCP- Discharge Planning Updated by [id number]: Priscilla Ashraf on 10/29/19 6:[address] Patient Name: MAYA COLE Admission Status: ER Accout number: [id number] Admission Date: 10-16-2019 : 1950 Admission Diagnosis:CHEST PAIN, UNSPECIFIED Attending: CARSON Current LOS: 13 Anticipated DC Date: Planned Disposition: Long-Term Facility Primary Insurance: WELL[employer] MEDICARE ADV Discharge Planning Comments: LATE ENTRY 10/28/19 @ 1445 I SPOKE WITH THE PATIENT'S SON ABOUT HIS PLOF AND HIS DISCHARGE PLAN. JULIEN ( SON) STATES THAT HE LIVES WITH HIM AND HE WAS MOSTLY INDEPENDENT WITH HIS CARE AT HOME. HE AMBULATES WITH A WALKER AND HE IS USUALLY NOT CONFUSED. HE USUALLY EATS WELL. HE HAS HOME HEALTH WITH [facility] AND THAT IS HIS FIRST OPTION IF THAT IS POSSIBLE, BUT IF NOT HE WOULD LIKE HIM TO GO TO [facility] TO GET BETTER. JULIEN STATED THAT HIS CAR IS BROKE AND SOON IT IS FIXED HE WILL COME UP HERE. PATIENT IS STILL IN A [place] BED AT THIS TIME AND IS CONFUSED. PER HIS SON THIS IS NOT HIS NORMAL AT ALL. HE HAS ALL THE DME HE NEEDS AT HOME PER JULIEN. WILL CONTINUE TO FOLLOW AND ASSIST JULIEN # [phone] Account Financial Manager: Priscilla Ashraf DCP- Discharge Planning Updated by [email or web address]: Priscilla Ashraf on 10/28/19 8:[address] attempted to call patients son, but did not get an answer. Patient is current with [facility] . At this time he is still in a [place] Bed DCPIA - Discharge Planning Initial Assessment Updated by [id number]: Priscilla Ashraf on 10/29/19 7:04 am * Is the patient Alert and Oriented? Yes * PCP [facility] * Pharmacy [facility] * Preadmission Environment Home with Family * ADLs Partial Dependent * Equipment Bedside Commode Nebulizer Oxygen Rolling Walker Shower Chair * List name and contact numbers for known caregivers / representatives who currently or will assist patient after discharge: JULIEN ( SON) [phone] OR [phone] * Verbal permission to speak to the caregivers and representatives has been obtained from the patient. Yes * Community resources currently utilized Home Health * Please name any agencies selected above. [facility] * Additional services required to return to the preadmission environment? Yes * Can the patient safely return to the preadmission environment? No * Has this patient been hospitalized within the prior 30 days at any hospital? Yes Last DP export: 11/04/19 9:20 a Patient Name: MAYA COLE Page 14299 at 0829 All edits/amendments must be made on the electronic document DICTATION DATE: 11/05/19827 TIRE TRUCKER: MOON 11/05/19827 RPT#: [id number] DC DATE: STATUS: ADM IN [facility] [address] [place] [address] END OF REPORT
--- NOTE | 2019-11-05 09:30 | NUR ---
PT BED ALARM ALERTING. ENTERED PT ROOM. PT VOICES NEED TO HAVE BM. ASSISTED PT X 1 STAFF TO BATHROOM, HAVING A SMALL BM AT THIS TIME. PROVIDED MICK CARE. ASSISTED PT BACK TO BED AFTER CHANGHING BED LINENS AND GOWN. PT DENIES PAIN AT THIS TIME. ORIENTED TO PERSON ONLY. [place]EN BED ALARM ACTIVE. CL WITHIN REACH. DENIES FURTHER NEEDS AT THIS TIME. ENCOURAGED TO CALL WITH NEEDS. CONTINUE POC
--- NOTE | 2019-11-05 09:41 | NUR ---
PT RESTING QUIETLY IN BED. RESP EVEN AND UNLABORED AT THIS TIME. REPORTS PAIN 7/10 AT THIS TIME. IV TO LEFT CHEST PORT WITH NS @ 50ML/HR, DILAUDID PLAN EXAMINER BOTH INFUSING VIA PUMP. SITE WITHOUT REDNESS OR EDEMA. DRESSING C/D/I TO LEFT HIP AT THIS TIME. DENIES FURTHER NEEDS AT THIS TIME. CL WITHIN REACH. ENCOURAGED TO CALL WITH NEEDS. CONTINUE POC
--- NOTE | 2019-11-05 10:00 | NUR ---
PT SITTING UP IN BED, ORIENTATED TO SELF ONLY. PT STATES HE HAS BEEN SITTING IN POOP FOR HOURS, PT HAS NO STOOL ON BUTTOCKS OR BED. REORIENTATED PT TO CLEAN BED AND LININS. PT IS INCONTINENT OF BLADDER AND BOWELS, ASSISTED PT WITH URINAL, HAS HARD TIME PLACING PENIS IN URINAL. PT HAS STAGE 3 ULCER ON COCCYX, DRSG C/D/I. PT REFUSES TO WEAR SCDS. PT HIGH FALL RISK. BED LOW, RAILS X3. CL IN REACH. DENIES FURTHER NEEDS. WILL CONTINUE TO MONITOR.
[2019-11-05] MEDS ORDERED: NICODERM CQ1 EAC3 TRANSDERM (10:56)
[2019-11-05] MEDS ORDERED: GEODON20 MG PO (10:56)
[2019-11-05] MEDS ORDERED: MUCINEX600 MG PO (10:57)
[2019-11-05] MEDS ORDERED: TESSALON PERLE100 MG PO (10:57)
[2019-11-05 12:00] VITALS: BP 95/64
--- NOTE | 2019-11-05 12:45 | NUR ---
PT SITTING UP IN BED. STOOL COVERING SIDE RAILS AND PT HANDS. CLEANED PT AND REORIENTATED TO CL AND USING IT FOR NEEDS. BED LOW, RAILS X3. CL IN REACH, WILL CONTINE TO MONITOR.
--- NOTE | 2019-11-05 14:28 | NUR ---
OT NOTE: BED MOB WITH MIN ASSIST; UE EXS WITH DEMONSTRATIONAL CUES; AMB INTO HALLWAY WITH WIND TURBINE CONTROLS ENGINEER X 2 X 100+ FT.. PT CONTINUES TO REQUIRE ASSIST DUE TO ANTERIOR PELVIC TILT DURING AMBULATION.. PT LEANS BACKWARDS AND IS UNABLE TO ORIENT TO MIDLINE.. BALANCE REMAINS POOR BUT PT VERY COOPERATIVE. NO AGITATION NOTED WITH THERAPY OVER THE LAST SEVERAL DAYS. YOANNA CUNNINGHAM, OTR/L [phone]
--- NOTE | 2019-11-05 14:30 | NUR ---
PT SITTING UP IN BED. C/O BM IN BED. CLEANED PT AND REORIENTATED TO CL AND LETTING NURSE KNOW WHEN HE NEEDS TO GO TO THE BATHROOM. BED LOW, RAILS X3. CL IN REACH. WILL CONTINUE TO MONITOR.
[2019-11-05 16:00] VITALS: BP 123/69
--- NOTE | 2019-11-05 17:15 | NUR ---
PT SITTING UP IN BED. BM IN BED. CLEANED PT, CHANGED LININS AND GOWN. REORIENTATED PT TO USING CL FOR NEEDS. BED LOW, RAILS X3. CL IN REACH. WILL CONTINUE TO MONITOR.
[2019-11-05 20:00] VITALS: BP 146/65
--- NOTE | 2019-11-05 20:27 | NUR ---
PT LAYING DOWN IN BED, BM IN BED. CLEANED PT, CHANGED LININS, REORIENTATED TO CL AND NEEDS. BED LOW, RAILS X3. CL IN REACH, WILL CONTINUE TO MONITOR.
[2019-11-06] VITALS: BP 125/66
[2019-11-06 04:00] VITALS: BP 95/60
[2019-11-06 05:52] LABS: BASOPHILS 0.2 % (0-2); HEMATOCRIT 27.1 % (42.0-54.0); HEMOGLOBIN 8.4 g/dL (13.5-17.5); IMMATURE GRANULOCYTES 0.5 % (0-5); MCH 28.6 pg (26.0-34.0); MCV 92.2 fL (80.0-100.0); MEAN PLATELET VOLUME 8.3 fL (7.4-10.4); MONOCYTES 8.4 % (2-11); NEUTROPHILS 65.9 % (40-80); PLATELET COUNT 232 10x3/uL (130-400); RBC 2.94 10x6/uL (4.20-6.10); RDW 18.4 % (11.5-14.5); WBC 4.4 10x3/uL (4.8-10.8)
[2019-11-06 06:23] LABS: CALC OSMOLALITY 271 mosm/kg (275-300); CALCIUM 8.4 mg/dL (8.5-10.1); CARBON DIOXIDE 27.4 mmol/L (21.0-32.0); CHLORIDE - SERUM 104 mmol/L (98-107); CREATININE - SERUM 0.9 mg/dL (0.6-1.3); GLUCOSE 93 mg/dL (74-106); POTASSIUM - SERUM 3.6 mmol/L (3.5-5.1); SODIUM 136 mmol/L (136-145); UREA NITROGEN 13 mg/dL (7-18); eGFR NON AFRICAN AMERICAN 89 mL/min (90-120)
--- NOTE | 2019-11-06 09:21 | NUR ---
PT LAYING DOWN IN BED. ORIENTATED TO SELF ONLY. INCONT BLADDER AND BOWELS. STAGE 3 PRESSURE ULCER ON COCCYX, MEPIPLEX C/D/I. PT TO BE D/C TO [facility] TODAY. SPOKE WITH SON ON TELEPHONE, HE WILL BE SIGNING PAPERWORK FOR TRANSFER TO FACILITY. PT HIGH FALL RISK, BED ALARM ON, RAILS X3. CL IN REACH. WILL CONTINUE TO MONITOR.
--- NOTE | 2019-11-06 09:28 | MORECARE ---
CASE MANAGEMENT DISCHARGE SUMMARY PATIENT: MAYA COLE UNIT: [id number] ADM DATE: 10/16/19 AGE: 68 : 48 SEX: M ROOM/BED: D.2219 AUTHOR: NIDHIDOC PHYSICIAN: REFERRING PHYSICIAN: GLENN SNIDER MD DATE OF SERVICE: 11/06/19 Discharge Plan Patient Name: MAYA COLE Facility: [facility]:[place] : 1950 Planned Disposition: Jail Facility Anticipated Discharge Date: Discharge Date: Expected LOS: Initial Reviewer: [email or web address] Initial Review Date: 10/17/2019 Generated: 11/06/19 10:28 am Comments DCP- Discharge Planning Updated by [email or web address]: Priscilla Ashraf on 11/06/19 8:[address] PATIENT SON IS HERE HE HAS SIGNED THE CASEY AND IMMJULIEN WILL BE GOING THIS MORNING TO SEE [facility] TO SIGN PAPERWORK. AND THEN THE PATIENT WILL BE DISCHARGED TO A SKILLED BED. THEY WILL PICK HIM UP DCP- Discharge Planning Updated by [email or web address]: Priscilla Ashraf on 11/05/19 7:[address] RECEIVED AUTH AND ACCEPTANCE FROM [facility] TODAY, HE WILL BE DISCHARGED TO A SKILLED BED BY THEIR TRANSPORTATION DCP- Discharge Planning Updated by [id number]: Priscilla Ashraf on 11/04/19 9:[address] RECEIVED MING BACK, [facility] IS TRYING TO REACH THE SON SO THEY CAN ACCEPT. AT THIS TIME WE CAN NOT GET A HOLD OF HIM DCP- Discharge Planning Updated by [id number]: Priscilla Ashraf on 11/03/19 3:[address] MING COMPLETED AND SENT FOR APPROVAL. AUTH IS PENDING FROM [facility]. CM TO FOLLOW AND ASSIST DCP- Discharge Planning Updated by [email or web address]: Justine Boyd on 11/02/19 3:[address] CM received order to evaluate patient's 02 needs and set up for Duo-neb updrafts 3-4 times daily on discharge. Patient's plan at this time is to go to [place]. CM will make sure facility is aware upon discharge. DCP- Discharge Planning Updated by [id number]: Priscilla Ashraf on 10/31/19 1:[address] Called [facility] about the status and she was looking into it and would let me know DCP- Discharge Planning Updated by [id number]: Priscilla Ashraf on 10/30/19 12:[address] REFERRAL SENT TO [facility] AT [facility] DCP- Discharge Planning Updated by [id number]: Priscilla Ashraf on 10/29/19 6:[address] Patient Name: MAYA COLE Admission Status: ER Accout number: [id number] Admission Date: 10-16-2019 : 1950 Admission Diagnosis:CHEST PAIN, UNSPECIFIED Attending: CARSON Current LOS: 13 Anticipated DC Date: Planned Disposition: Jail Facility Primary Insurance: WELLCARE MEDICARE ADV Discharge Planning Comments: LATE ENTRY 10/28/19 @ 5593 I SPOKE WITH THE PATIENT'S SON ABOUT HIS PLOF AND HIS DISCHARGE PLAN. JULIEN ( SON) STATES THAT HE LIVES WITH HIM AND HE WAS MOSTLY INDEPENDENT WITH HIS CARE AT HOME. HE AMBULATES WITH A WALKER AND HE IS USUALLY NOT CONFUSED. HE USUALLY EATS WELL. HE HAS HOME HEALTH WITH [facility] AND THAT IS HIS FIRST OPTION IF THAT IS POSSIBLE, BUT IF NOT HE WOULD LIKE HIM TO GO TO [facility] TO GET BETTER. JULIEN STATED THAT HIS CAR IS BROKE AND SOON IT IS FIXED HE WILL COME UP HERE. PATIENT IS STILL IN A [place] BED AT THIS TIME AND IS CONFUSED. PER HIS SON THIS IS NOT HIS NORMAL AT ALL. HE HAS ALL THE DME HE NEEDS AT HOME PER JULIEN. WILL CONTINUE TO FOLLOW AND ASSIST JULIEN # [phone] Injury/Safety Hazard Assessment: Priscilla Ashraf DCP- Discharge Planning Updated by [id number]: Priscilla Ashraf on 10/28/19 8:[address] attempted to call patients son, but did not get an answer. Patient is current with [facility] . At this time he is still in a [place] Bed DCPIA - Discharge Planning Initial Assessment Updated by [email or web address]: Priscilla Ashraf on 10/29/19 7:04 am * Is the patient Alert and Oriented? Yes * PCP [facility] * Pharm[facility] * Preadmission Environment Home with Family * ADLs Partial Dependent * Equipment Bedside Commode Nebulizer Oxygen Rolling Walker Shower Chair * List name and contact numbers for known caregivers / representatives who currently or will assist patient after discharge: JULIEN ( SON) [phone] OR [phone] * Verbal permission to speak to the caregivers and representatives has been obtained from the patient. Yes * Community resources currently utilized Home Health * Please name any agencies selected above. [facility] * Additional services required to return to the preadmission environment? Yes * Can the patient safely return to the preadmission environment? No * Has this patient been hospitalized within the prior 30 days at any hospital? Yes Last DP export: 11/05/19 7:29 a Patient Name: MAYA COLE Page 31823 at 0928 All edits/amendments must be made on the electronic document DICTATION DATE: 11/06/19927 PRIVATE SECRETARY: MOON 11/06/19927 RPT#: [id number] DC DATE: STATUS: ADM IN [facility] [address] [place] [address] END OF REPORT
[2019-11-06 10:59] VITALS: BP 117/62
--- NOTE | 2019-11-06 12:21 | NUR ---
OT NOTE: PT DOING BETTER PHYSICALLY HOWEVER, STILL VERY CONFUSED AND DISORIENTED. BED MOB WITH SPV; STATIC AND DYNAMIC SITTING BALANCE IS GOOD; STATIC STANDING IS FAIR, HOWEVER, PROVIDED PT WITH RW TODAY AND THIS HELPED HIS BALANCE CONSIDERABLY IT ASSISTED WITH GETTING HIS WT SHIFTED FORWARD. PT WAS ABLE TO AMB WITH CGA WITH USE OF WALKER GREATER THAN 150 FT.. HOWEVER, REQUIRES EXTENSIVE CUES WITH WALKER MGMT WHILE IN ROOM, HE IS CONTINUALLY TRYING TO PUSH IT OUT OF THE WAY AND WALK WITHOUT..PT ABLE TO WASH FACE AND HANDS WITH CLOTH AND SET UP; ABLE TO KERRI SOCKS WITH SET UP; REQUIRES CUES FOR FEEDING, HE WAS CONTINUALLY ATTEMPTING TO USE SPOON FOR STRAW.. PERFORMED UE/LE EXS WITH VERBAL CUES. YOANNA CUNNINGHAM, OTR/L [phone]
--- NOTE | 2019-11-06 12:45 | NUR ---
pt taken out via w/c to private vehicle with all personal posessions for d/c
--- NOTE | 2019-11-06 14:09 | MORECARE ---
CASE MANAGEMENT DISCHARGE SUMMARY PATIENT: MAYA COLE UNIT: [id number] ADM DATE: 10/16/19 AGE: 68 : 48 SEX: M ROOM/BED: D.2219 AUTHOR: NIDHI,DOC PHYSICIAN: REFERRING PHYSICIAN: GLENN SNIDER MD DATE OF SERVICE: 11/06/19 Discharge Plan Patient Name: MAYA COLE Facility: [facility]:[place] : 1950 Planned Disposition: Group Home Facility Anticipated Discharge Date: Discharge Date: 11/06/2019 Expected LOS: Initial Reviewer: [id number] Initial Review Date: 10/17/2019 Generated: 11/06/19 3:09 pm Comments DCP- Discharge Planning Updated by [email or web address]: Pirscilla Ashraf on 11/06/19 8:[address] PATIENT SON IS HERE HE HAS SIGNED THE CASEY AND JULIEN DICKSON WILL BE GOING THIS MORNING TO SEE [facility] TO SIGN PAPERWORK. AND THEN THE PATIENT WILL BE DISCHARGED TO A SKILLED BED. THEY WILL PICK HIM UP DCP- Discharge Planning Updated by [email or web address]: Priscilla Ashraf on 11/05/19 7:[address] RECEIVED AUTH AND ACCEPTANCE FROM [facility] TODAY, HE WILL BE DISCHARGED TO A SKILLED BED BY THEIR TRANSPORTATION DCP- Discharge Planning Updated by [email or web address]: Priscilla Ashraf on 11/04/19 9:[address] RECEIVED [facility] BACK, [facility] IS TRYING TO REACH THE SON SO THEY CAN ACCEPT. AT THIS TIME WE CAN NOT GET A HOLD OF HIM DCP- Discharge Planning Updated by [email or web address]: Priscilla Ashraf on 11/03/19 3:[address] [facility] COMPLETED AND SENT FOR APPROVAL. AUTH IS PENDING FROM [facility]. CM TO FOLLOW AND ASSIST DCP- Discharge Planning Updated by [id number]: Justine Boyd on 11/02/19 3:[address] CM received order to evaluate patient's 02 needs and set up for Duo-neb updrafts 3-4 times daily on discharge. Patient's plan at this time is to go to [place]. CM will make sure facility is aware upon discharge. DCP- Discharge Planning Updated by [email or web address]: Priscilla Ashraf on 10/31/19 1:[address] Called [facility] about the status and she was looking into it and would let me know DCP- Discharge Planning Updated by [id number]: Priscilla Ashraf on 10/30/19 12:[address] REFERRAL SENT TO [facility] AT [facility] DCP- Discharge Planning Updated by [id number]: Priscilla Ashraf on 10/29/19 6:[address] Patient Name: MAYA COLE Admission Status: ER Accout number: [id number] Admission Date: 10-16-2019 : 1950 Admission Diagnosis:CHEST PAIN, UNSPECIFIED Attending: CARSON Current LOS: 13 Anticipated DC Date: Planned Disposition: Group Home Facility Primary Insurance: WELLCARE MEDICARE ADV Discharge Planning Comments: LATE ENTRY 10/28/19 @ 6438 I SPOKE WITH THE PATIENT'S SON ABOUT HIS PLOF AND HIS DISCHARGE PLAN. JULIEN ( SON) STATES THAT HE LIVES WITH HIM AND HE WAS MOSTLY INDEPENDENT WITH HIS CARE AT HOME. HE AMBULATES WITH A WALKER AND HE IS USUALLY NOT CONFUSED. HE USUALLY EATS WELL. HE HAS HOME HEALTH WITH [facility] AND THAT IS HIS FIRST OPTION IF THAT IS POSSIBLE, BUT IF NOT [facility] JULIEN STATED THAT HIS CAR IS BROKE AND SOON IT IS FIXED HE WILL COME UP HERE. PATIENT IS STILL IN A [place] BED AT THIS TIME AND IS CONFUSED. PER HIS SON THIS IS NOT HIS NORMAL AT ALL. HE HAS ALL THE DME HE NEEDS AT HOME PER JULIEN. WILL CONTINUE TO FOLLOW AND ASSIST JULIEN # [phone] Stripper Opaquer: Priscilla Ashraf DCP- Discharge Planning Updated by [id number]: Priscilla Ashraf on 10/28/19 8:[address] attempted to call patients son, but did not get an answer. Patient is current with [facility] . At this time he is still in a [place] Bed DCPIA - Discharge Planning Initial Assessment Updated by [id number]: Priscilla Ashraf on 10/29/19 7:04 am * Is the patient Alert and Oriented? Yes * PCP [facility] * Pharm[facility] * Preadmission Environment Home with Family * ADLs Partial Dependent * Equipment Bedside Commode Nebulizer Oxygen Rolling Walker Shower Chair * List name and contact numbers for known caregivers / representatives who currently or will assist patient after discharge: JULIEN ( SON) [phone] OR [phone] * Verbal permission to speak to the caregivers and representatives has been obtained from the patient. Yes * Community resources currently utilized Home Health * Please name any agencies selected above. [facility] * Additional services required to return to the preadmission environment? Yes * Can the patient safely return to the preadmission environment? No * Has this patient been hospitalized within the prior 30 days at any hospital? Yes Coverage Notice Reviewer: [id number] Penny Ashraf Notice Issued Date-Time: 11/06/2019 9:15 Notice Type: IM Discharge Notice Notice Delivered To: Family Member Relationship to Patient: Son Staff Midwife Name: JULIEN Delivery Method: HAND - Hand Delivered Kandice Days: Prior Verbal Notification: Recipient Understood Notice: Yes Recipient Signature: Yes Med Rec Note Co-signed by Attending: Coverage Notice Comment: IMM WITH JOAQUIN VICTORIA Reviewer: [id number] Penny Ashraf Notice Issued Date-Time: 11/06/2019 9:15 Notice Type: Patient Choice Letter Notice Delivered To: Family Member Relationship to Patient: Son Staff Midwife Name: JULIEN Delivery Method: HAND - Hand Delivered Kandice Days: Prior Verbal Notification: Recipient Understood Notice: Yes Recipient Signature: Yes Med Rec Note Co-signed by Attending: Coverage Notice Comment: [facility] WITH JOSETTE Vazquez DP export: 11/06/19 8:28 a Patient Name: MAYA COLE Page 01087 at 1409 All edits/amendments must be made on the electronic document DICTATION DATE: 11/06/19 1409 RESCUE INSTRUCTOR: MOON 11/06/19 1409 RPT#: [id number] DC DATE:11/06/19 STATUS: DIS IN [facility] [address] [place] [address] END OF REPORT
== END 2019-11-06 13:02 | DRG 175 ==
LOC: D.ER 18:57 → D.MS 21:22 → D.EDHOLD 21:22 → D.MS 10-17 04:05
PROVIDERS: Emergency Medicine; Family Medicine; Family Medicine Adult Medicine; ADMIT Family Medicine; ATTEND Family Medicine
DX: I26.99 Other pulmonary embolism without acute cor pulmonale (principal); J18.9 Pneumonia, unspecified organism; J96.21 Acute and chronic respiratory failure with hypoxia; G93.41 Metabolic encephalopathy; F17.203 Nicotine dependence unspecified, with withdrawal; J44.0 Chronic obstructive pulmonary disease with (acute) lower respiratory infection; E46 Unspecified protein-calorie malnutrition; D64.9 Anemia, unspecified; E03.9 Hypothyroidism, unspecified; I10 Essential (primary) hypertension; I25.10 Atherosclerotic heart disease of native coronary artery without angina pectoris; Z86.73 Personal history of transient ischemic attack (TIA), and cerebral infarction without residual deficits; Z68.21 Body mass index [BMI] 21.0-21.9, adult

== ENCOUNTER 2019-11-10 17:57 | Inpatient (IN) | payer MEDICARE, MEDICAID ==
[~2019-11-10] VITALS: Ht 182.9 cm; Wt 55.7 kg
[~2019-11-10 17:57] MED LIST changes: +GEODON20 MG PO; +MUCINEX600 MG PO; +NICODERM CQ1 EAC3 TRANSDERM; +TESSALON PERLE100 MG PO
--- NOTE | 2019-11-10 18:23 | NUR ---
PT ADMITTED FROM [place] FOR AGGRESSION. REPORTED PT WAS DRINKING FROM URINAL PER [facility]. REPORTED PT WAS THROWING TRAYS AND ATTEMPTING TO BUST OUT WINDOWS. PT IS VERY CONFUSED UPON ARRIVAL. PT IS UNSTEADY AT THIS TIME. PT IS FULL CODE. CODE # 6440.
[2019-11-10 19:13] LABS: BASOPHILS 0.2 % (0-2); EOSINOPHILS 0.9 % (0-7); HEMATOCRIT 30.8 % (42.0-54.0); HEMOGLOBIN 9.4 g/dL (13.5-17.5); IMMATURE GRANULOCYTES 0.4 % (0-5); MCH 28.3 pg (26.0-34.0); MCHC 30.5 g/dL (31.0-37.0); MCV 92.8 fL (80.0-100.0); MEAN PLATELET VOLUME 8.1 fL (7.4-10.4); NEUTROPHILS 66.5 % (40-80); PLATELET COUNT 264 10x3/uL (130-400); RBC 3.32 10x6/uL (4.20-6.10); RDW 17.2 % (11.5-14.5); WBC 5.3 10x3/uL (4.8-10.8)
[2019-11-10 20:05] LABS: ALBUMIN 2.5 g/dL (3.4-5.0); ANION GAP 9.3 mmol/L (8-16); BILIRUBIN - TOTAL 0.38 mg/dL (0.2-1.3); CALCIUM 8.6 mg/dL (8.5-10.1); CARBON DIOXIDE 29.1 mmol/L (21.0-32.0); CHOL - HDL RATIO 5.2 ratio (2.3-4.9); CREATININE - SERUM 1.3 mg/dL (0.6-1.3); LDL-HDL RATIO 3.9 ratio (1.5-3.5); POTASSIUM - SERUM 4.4 mmol/L (3.5-5.1); PROTEIN - SERUM 6.9 g/dL (6.4-8.2); THYROID STIMULATING HORMONE 1.74 uIU/mL (0.36-3.74)
[2019-11-10 20:31] LABS: BILIRUBIN NEGATIVE (NEGATIVE); GLUCOSE NEGATIVE (NEGATIVE); KETONE NEGATIVE (NEGATIVE); NITRITE NEGATIVE (NEGATIVE); UROBILINOGEN NORMAL (NORMAL)
[2019-11-10 22:46] VITALS: BP 137/72
--- NOTE | 2019-11-11 02:43 | NUR ---
B) Patient is alert and oriented to self, very confused, patient is very thin and has 2.5 cm decub ulcer on lower back I) PRN meds only this shift, 1:1 due to confusion and climbing out of bed R) restless and poor judgement and very unsteady on his feet P) Continue plan of care.
[2019-11-11 09:53] VITALS: BP 100/60
--- NOTE | 2019-11-11 10:04 | NUR ---
REC'D PT IN BED WITH EYES OPEN. RESPONDS TO VERBAL STIMULI. AWAKE AND ALERT TO PERSON ONLY. CALM AND COOPERATIVE WITH ASSESSMENT WITH CONFUSION NOTED. PT IS VERY THIN AT THIS TIME. PT REPORTS " THEM NURSES OVER THERE DIDN'T FEED ME." UPON ARRIVAL TO UNIT YESTERDAY PT WAS STARVING. FOOD PROVIDED PER STAFF. PT ATE 100%. PT CONSUMED 100% OF BREAKFAST THIS MORNING. PT IS COMPLIANT WITH MEDS THIS MORNING. FALL PRECAUTIONS IN PLACE. SITTER AT BEDSIDE FOR SAFETY. WILL CPOC.
[2019-11-11 10:37] VITALS: Ht 182.9 cm; Wt 55.7 kg
[2019-11-11 20:28] VITALS: BP 119/59
--- NOTE | 2019-11-11 23:05 | NUR ---
B) Patient is alert and oriented to person, patient is painfully thin and staff has been providing food and snacks frequently I) Administered scheduled medications as ordered, monitored for safety R) Mediation compliant, calm and cooperative, P) Continue plan of care.
--- NOTE | 2019-11-12 07:30 | NUR ---
REC'D PT IN HALLWAY WITH PEERS BY NURSES STATION. AWAKE AND ALERT TO PERSON ONLY. CALM AND COOPERATIVE WITH ASSESSMENT. PT NOTED TO CRY OUT AT TIMES FOR UNKNOWN REASONS. REDIRECT AND REORIENT NEEDED. FALL PRECAUTIONS IN PLACE. WILL CPOC.
[2019-11-12 09:16] VITALS: BP 92/47
--- NOTE | 2019-11-12 15:58 | PSY ---
PATIENT NAME:MAYA COLE MEDICAL RECORD: [id number] : [birth year] LOCATION:[facility] ADMISSION DATE: 11/10/19 ACCOUNT: [id number] PSYCHIATRIC EVALUATION DATE OF EVALUATION: 11/11/19 IDENTIFYING DATA: The patient is 69 years old and he is admitted to the hospital on a voluntary basis. CHIEF COMPLAINT: Confusion. HISTORY OF PRESENT ILLNESS: The patient is referred to us by a local senior living. They indicate that he has been disruptive, agitated and actually drinking his own urine from the urinal. The patient has no recollection of this. He is cooperative and clearly very impaired. He makes some paranoid statements about me not liking him, but other than that, he does not have any psychotic symptoms. PAST MEDICAL HISTORY: Significant for stroke. He also has COPD, chronic anemia, hypertension and osteoarthritis. He has recently had a left lower lobe pneumonia. PAST PSYCHIATRIC HISTORY: None by his account, but that is unreliable. I did see him a month ago on the medical floor and at that time indicated that he had a delirium. That was thought to be secondary to the steroids that he was taking. FAMILY HISTORY: Unknown. SOCIAL HISTORY: The patient says he does not drink or use drugs anymore. When questioned about that he really cannot elaborate. He says that he has a son named Cezar, but cannot tell me if he is or . He is clearly very impaired and even the little bit of information that he gives is not reliable. MENTAL STATUS EXAMINATION: The patient is awake, alert and oriented to person only. His mood is euthymic. His affect is appropriate. Thought processes are circumstantial. Memory, concentration, and abstraction abilities are impaired and he denies that he would seek to harm himself or others as well as psychotic symptoms. ASSESSMENT: AXIS I: Major vascular neurocognitive disorder. AXIS II: None. AXIS III: Chronic obstructive pulmonary disease, status post stroke, hypertension, chronic anemia, osteoarthritis. AXIS IV: Moderate. AXIS V: Global assessment of functioning is 30. PLAN: At the time of admission, the patient is not directly agitated or dangerous to himself. He recently has been in a very disorganized way. He will be comprehensively evaluated and treated with memory enhancing and mood stabilizing medications. His long-term prognosis is guarded. TRANSINT:[id number] Voice Confirmation ID: [id number] DOCUMENT ID: [id number] LIUDMILA PANDA MD at 1558 CC: [id number] DICTATION DATE: 11/11/19 1547 CLINICAL SPECIALIST MEDICAL DEVICE: 11/11/19 1608 ADM IN [facility] [address] [place] [id number]
--- NOTE | 2019-11-12 16:30 | NUR ---
Nutrition Follow-up: Diet: Regular Mech Soft, Regular consistency (per ST) PO intake: 100% x last 3 meals Last BM: 11/12/19. Wt: 116# (11/11/19) Meds reviewed, no new labs. Skin: Stage 2/3 decub PU to coccyx Recommend continue current diet. Will add Ensure TID and Theron BID for nutritionally aided wound healing. RD following.
[2019-11-12 20:01] VITALS: BP 110/35
--- NOTE | 2019-11-13 00:04 | NUR ---
B) Patient is alert and oriented to person, very confused, anxious at times, restless I) Administered scheduled medications as ordered, PRN Ativan 0.5 mg IM for anxiety R) Medication compliant needy at times P) Continue plan of care.
--- NOTE | 2019-11-13 00:10 | NUR ---
PT RELATES THAT HE IS ANXIOUS AND FOR SOME REASON CANNOT GET TO SLEEP TONITE. ADMINISTERED PRN IM ATIVAN 0.5 MG. WILL CONTINUE TO MONITOR.
--- NOTE | 2019-11-13 00:45 | NUR ---
PT IS RESTING CALMLY IN BED WITH EYES CLOSED. NO DISTRESS NOTED. WILL CONTINUE TO MONITOR.
[2019-11-13 09:25] VITALS: BP 118/61
--- NOTE | 2019-11-13 10:47 | NUR ---
The patient is awake and alert, but he has poor insight into his situation. He is not showing any aggression, but he is very confused. He does not know place or time. Staff are ambulating him to the bathroom when he needs to go. Provide prescribed meds. The patient is compliant with meds. Continue POC.
--- NOTE | 2019-11-13 12:01 | PN ---
PATIENT:MAYA COLE MEDICAL RECORD: [id number] LOCATION:WANDA Marquez ADMISSION DATE: 11/10/19 PROGRESS NOTE DATE OF SERVICE: 11/12/2019 SUBJECTIVE: The patient's case was discussed with staff. He has no new complaint. OBJECTIVE: The patient has been in good behavioral control. He has not been aggressive. He is sleeping and eating well. He is poorly oriented. His diet has improved tremendously. I have strong reservations about the care that he received at the assisted since he came to us at only 116 pounds and ate in a ravenous manner. He is severely impaired cognitively and does not have the ability to use a knife and fork so finger foods are best. ASSESSMENT: Vascular dementia. PLAN: The patient is going to be maintained on current medications. His long-term prognosis is guarded. He has not been aggressive. TRANSINT:[id number] Voice Confirmation ID: [id number] DOCUMENT ID: [id number] LIUDMILA PANDA MD at 1201 CC: [id number] DICTATION DATE: 11/12/19 1616 WILDLIFE CONSERVATION OFFICER: 11/13/19 0408 ADM IN [facility] [address] [place] [address]
--- NOTE | 2019-11-13 15:25 | NUR ---
Applied a mepilex to his coccyx area.
[2019-11-13 21:22] VITALS: BP 106/57
--- NOTE | 2019-11-13 23:10 | NUR ---
B) Patient is alert and oriented to person, calm and cooperative this shift I) Administered scheduled medications as ordered, assisted with needs, R) Medication compliant, confused, restless at imes, follow instructions, P) Continue plan of care.
[2019-11-14 06:09] LABS: BASOPHILS 0.2 % (0-2); EOSINOPHILS 1.4 % (0-7); HEMATOCRIT 29.6 % (42.0-54.0); IMMATURE GRANULOCYTES 0.3 % (0-5); LYMPHOCYTES 16.8 % (15-50); MCH 28.4 pg (26.0-34.0); MCHC 30.4 g/dL (31.0-37.0); MCV 93.4 fL (80.0-100.0); MEAN PLATELET VOLUME 8.2 fL (7.4-10.4); MONOCYTES 11.2 % (2-11); NEUTROPHILS 70.1 % (40-80); PLATELET COUNT 240 10x3/uL (130-400); RBC 3.17 10x6/uL (4.20-6.10); RDW 17.3 % (11.5-14.5); WBC 6.3 10x3/uL (4.8-10.8)
--- NOTE | 2019-11-14 08:27 | NUR ---
The patient is awake and alert, he has poor insight into his situation. He is confused, he knows his name, knows he is in the hospital, but he doesn't know the month or year and has said he is 88 years old. He can ambulate with staff assist, but he is unsteady on his own. He tries to get up by himself and he doesn't like to redirect easily. Provide prescribed meds. Monitor his mood and behavior. Redirect as needed. Continue POC.
[2019-11-14 09:07] VITALS: BP 98/51
--- NOTE | 2019-11-14 13:20 | PN ---
PATIENT:MAYA COLE MEDICAL RECORD: [id number] LOCATION:WANDA Marquez ADMISSION DATE: 11/10/19 PROGRESS NOTE DATE OF SERVICE: 11/13/2019 SUBJECTIVE: The patient's case was discussed with staff. He has no new complaint. OBJECTIVE: The patient looks stronger. He is more interactive and more verbal. He did have an episode of agitation and required some p.r.n. medication, but I think that was probably fairly isolated. ASSESSMENT: Vascular dementia. PLAN: Current medicines have been reviewed and will be maintained. Long-term prognosis is guarded. TRANSINT:[id number] Voice Confirmation ID: [id number] DOCUMENT ID: [id number] LIUDMILA PANDA MD at 1320 CC: [id number] DICTATION DATE: 11/13/19 1626 BREW HOUSE SUPERVISOR: 11/13/19 2341 ADM IN [facility] [address] [place] [address]
--- NOTE | 2019-11-14 16:51 | NUR ---
The patient is anxious and he says he is anxious. He says he wants to go outside, but he doesn't understand that he is not able to go outside. Ativan 0.5 mg po provided, will monitor mood and behavior.
--- NOTE | 2019-11-14 20:45 | NUR ---
RECEIVED PATIENT IN DAYROOM, VERY CONFUSED, ONLY KNOWS HIMSELF. COMPLIANT WITH MEDS. NO ADVERSE SIDE EFFECTS. CAN MAKE ALL NEEDS KNOWN. WILL FOLLOW POC
[2019-11-14 21:05] VITALS: BP 143/69
--- NOTE | 2019-11-15 12:51 | NUR ---
ORIENTED TO SELF ONLY.COMPLIANT WITH STAFF WITH MEDS.VISITS WITH PEERS.NO AGGRESSION OBSERVED.WILL CONTINUE WITH CURRENT PLAN OF CARE,MONITOR FOR CHANGES AND SAFETY.
[2019-11-15 14:20] VITALS: BP 105/49
--- NOTE | 2019-11-16 01:55 | NUR ---
RECEIVED PATIENT IN DAYROOM, CONFUSED, ORIENTED TO PERSON ONLY, COMPLIANT WITH MEDS, DEPENDENT UPON STAFF FOR ALL NEEDS AND CARE. HE IS PLEASANT AND APPRECIATIVE OF HIS CARE. WILL MONITOR
[2019-11-16 08:53] VITALS: BP 108/53
--- NOTE | 2019-11-16 16:40 | NUR ---
PT IN DAYRROM WITH PEERS WATCHING TV. AWAKE AND ALERT TO PERSON ONLY. CALM AND COOPERATIVE WITH ASSESSMENT. PRESCRIBED MEDS PROVIDED ORDERED. MED COMPLIANT. PT IS VERY CONFUSED AT THIS TIME. PT HAS VERY LITTLE INSIGHT INTO HIS SITUATION. REDIRECT AND REORIENT NEEDED. FALL PRECAUTIONS IN PLACE. WILL CPOC.
[2019-11-16 19:36] VITALS: BP 103/70
--- NOTE | 2019-11-16 21:15 | NUR ---
RECEIVED PATIENT IN DAYROOM, HE IS CALM AND PLEASANT BUT CONFUSED HOWEVER HE IS PHYSICALLY STRONGER, COMPLIANT WITH MEDS. HE INITALLY REFUSED HIS BREATHING TREATMENT BUT HE DID TAKE IT. HE CAN MAKE HIS NEEDS KNOWN. WILL FOLLOW POC
[2019-11-17 09:08] VITALS: BP 124/56
--- NOTE | 2019-11-17 17:24 | NUR ---
PT SITTING AT DINING TABLE WITH PEERS. ASSESSMENT COMPLETED. PRESCRIBED MEDS PROVIDED. MED COMPLIANT. NO BEHAVIORS NOTED. FALL PRECAUTIONS IN PLACE. WILL CPOC.
--- NOTE | 2019-11-17 19:47 | NUR ---
RECEIVED IN DAYROOM. SITTING IN A RECLINER WITH PEERS AT HIS SIDE. RESTLESS AT TIMES. COOPERATIVE WITH CARE AND ASSESSMENT. NO SIGNS OF AGGRESSION. REDIRECT AND REORIENT NEEDED. NO SIGNS OF AGGRESSION. REDIRECT AND REORIENT NEEDED. CONTINUES TO SBE RESTLESS. CONTINUE PLAN OF CARE.
[2019-11-17 20:10] VITALS: BP 138/60
[2019-11-18 10:12] VITALS: BP 112/59
--- NOTE | 2019-11-18 16:45 | NUR ---
PT SITTING IN CHAIR WITH FEET PROPPED UP. PT IS RESTLESS AT TIMES. CONT TO ATTEMPT TO STAND BY HIMSELF. PT IS CALM AND COOPERATIVE. PT IS ALERT TO SELF ONLY. PT IS CONFUSED AND RESTLESS. PT IS COMPLIANT WITH MEDS, VITALS AND ASSESSMENTS. CHAIR ALARM IN PLACE AND ACTIVE. WILL CONT PLAN OF CARE.
[2019-11-18 19:52] VITALS: BP 143/73
--- NOTE | 2019-11-18 20:04 | NUR ---
RECEIVED IN DAYROOM. SITTING IN A RECLINER. RESTLESS. CALM AND COOPERATIVE WITH CARE AND ASSESSMENT. NO SIGNS OF AGGRESSION. REDIRECT AND REORIENT NEEDED. CONTINUES TO BE RESTLESS AT TIMES. CONTINUE PLAN OF CARE.
[2019-11-19 08:36] VITALS: BP 105/60
--- NOTE | 2019-11-19 10:41 | NUR ---
REC'D PT IN [facility] CHAIR IN DAYROOM WITH PEERS AND STAFF. PT IS AWAKE AND ALERT TO PERSON ONLY. PT IS VERY RESTLESS AT TIMES. PRESCRIBED MEDS PROVIDED ORDERED. MED COMPLAINT. REDIRECT AND REORIENT NEEDED. FALL PRECAUTIONS IN PLACE. WILL CPOC.
--- NOTE | 2019-11-19 15:05 | NUR ---
Nutrition Follow-up: [facility] + Ensure TID + Theron BID PO intake: ~72% average x last 9 meals Last BM: 11/17/19. Wt: 120# (11/16/19); Admit Wt: 116# (11/11/19) Meds reviewed. No new labs. Skin: stage II decubitus PU to coccyx Recommend continue current diet and oral nutrition supplements. RD following.
[2019-11-19 20:27] VITALS: BP 92/55
--- NOTE | 2019-11-20 02:00 | NUR ---
B) PATIENT IS ORIENTED TO SELF ONLY, BUT RESTLESS AT TIMES. CALM AND COOPERATIVE, VERY CONFUSED. I) ADMINISTERED SCHEDULED MEDICATIONS ORDERED. REDIRECT NEEDED, ASSISTED WITH NEEDS. R) MEDICATION COMPLIANT, [place] RESTING QUIETLY IN BED. P) CONTINUE PLAN OF CARE.
[2019-11-20 11:19] VITALS: BP 111/75
--- NOTE | 2019-11-20 16:20 | NUR ---
VERY CONFUSED,ORIENTED TO SELF ONLY.COMPLIANT WITH STAFF ND MEDS.ENJOYS VISITING WITH PEERS.NO BEHAVIORS OBSERVED.WILL CONTINUE WITH CURRENT PLAN OF CARE,MONITOR FOR CHANGES AND SAFETY.
--- NOTE | 2019-11-20 17:58 | NUR ---
PT SITTING AT TABLE AND STATED "YOU DID IT DIDNT YOU? I KNOW THAT YOU DID IT. IM ON MY CELLPHONE. WHY DID YOU TAKE IT." PT HAS BEEN HALLUCINTING THINGS ON THE FLOOR AND ON THE TABLE. ATTEMPT TO REDIRECT BEHAVIOR. PT IS CONFUSED AND RESTLESS.
--- NOTE | 2019-11-20 18:12 | NUR ---
11/19/19 LATE ENTRY.OBSERVED HALLUCINATING.STATE'S"THERE IS A CAT UNDER THAT TABLE AND A FISHOOK ON THE FLOOR'.is concerned the cat will get the fishook in its mouth.HALLUCINATIONS GO ON ALL AFTERNOON.
--- NOTE | 2019-11-20 18:22 | NUR ---
OBSERVED TRYING TO PICK SOMETHING UP OFF THE FLOOR.WHEN QUESTIONED ABOUT WHAT HE WAS DOING STATED " I'M TRYING TO FOIL OPERATOR MY CELL PHONE".THERE IS NOTHING VISIBLE ON THE FLOOR TO THIS NURSE.
[2019-11-20 20:09] VITALS: BP 114/51
--- NOTE | 2019-11-20 23:24 | NUR ---
B) Patient is alert and oriented to person, very confused and hallucinating, trying to reach for objects that are not there, I) Administered scheduled medications, redirected as needed, monitored for safety R) Mediation compliant, restless and tries to wander P) Continue plan of care.
--- NOTE | 2019-11-21 12:58 | NUR ---
Staff took the patient to the bathroom and this nurse noted his open wound to his coccyx. Also noted what looks like blisters that have burst on the left side of his buttocks, will have Dr. Irene dunbar. Applied a mepilex to the coccyx as the patient c/o pain when sitting. He has not made any c/o the broken areas. He says he is really nervous right now. Provided ativan 0.5 mg po and monitor. Provide prescribed meds. The patient is compliant with meds. Continue POC.
--- NOTE | 2019-11-21 15:58 | PN ---
PATIENT:MAYA COLE MEDICAL RECORD: [id number] LOCATION:WANDA Marquez ADMISSION DATE: 11/10/19 PROGRESS NOTE DATE OF SERVICE: 11/17/2019 SUBJECTIVE: The patient's case was discussed with staff. He has no new complaint. OBJECTIVE: The patient is in good behavioral control. He has limited insight about his situation. He is more interactive. He is stronger. He is gaining weight and eating reasonably well. ASSESSMENT: Vascular dementia. PLAN: Current medicines have been reviewed. If this level of improvement continues, I anticipate he can be transitioned out of the hospital soon. TRANSINT:[id number] Voice Confirmation ID: [id number] DOCUMENT ID: [id number] LIUDMILA PANDA MD at 1558 CC: [id number] DICTATION DATE: 11/17/19 173 WELFARE WORKER: 11/18/19 0137 ADM IN [place] [id number] [place] [address]
--- NOTE | 2019-11-21 15:58 | PN ---
PATIENT:MAYA COLE MEDICAL RECORD: [id number] LOCATION:WANDA Marquez ADMISSION DATE: 11/10/19 PROGRESS NOTE DATE OF SERVICE: 11/18/2019 SUBJECTIVE: The patient's case was discussed with staff. He has no new complaint. OBJECTIVE: The patient denies intent to harm himself or others. He is tolerating his medicines well. He is eating well and looking stronger and gaining weight. ASSESSMENT: Vascular dementia. PLAN: The patient will be maintained on current medicines. I am going to try to manage him without the Habitrol patch. He has not asked to smoke, I think that if his behaviors become agitated, I will put the patch back on him, but going without it may help him quit smoking and it will also stimulate his appetite. TRANSINT:[id number] Voice Confirmation ID: [id number] DOCUMENT ID: [id number] LIUDMILA PANDA MD at 1558 CC: [id number] DICTATION DATE: 11/18/19 1634 PRINTED CIRCUIT BOARD ASSEMBLER: 11/19/19 0121 ADM IN [place] [id number] [place] [id number]
--- NOTE | 2019-11-21 15:58 | PN ---
PATIENT:MAYA COLE MEDICAL RECORD: [id number] LOCATION:WANDA Marquez ADMISSION DATE: 11/10/19 PROGRESS NOTE DATE OF SERVICE: 11/19/2019 SUBJECTIVE: The patient's case was discussed with staff. He has no new complaint. OBJECTIVE: The patient is in good behavioral control but easily agitated at times. He is extremely confused and is not following directions to stay seated. He is a very high fall risk. ASSESSMENT: Vascular dementia. PLAN: Adjustments will be made to the patient's pharmacology. I think I am going to start him on a scheduled dose of Tylenol for some overall generalized joint discomfort. NTS:[id number] Voice Confirmation ID: [id number] DOCUMENT ID: [id number] LIUDMILA PANDA MD at 1558 CC: [id number] DICTATION DATE: 11/19/[address]ER: 11/19/19 2351 ADM IN [place] [id number] [place] [address]
--- NOTE | 2019-11-21 15:58 | PN ---
PATIENT:MAYA COLE MEDICAL RECORD: [id number] LOCATION:[facility] ADMISSION DATE: 11/10/19 PROGRESS NOTE DATE OF SERVICE: 11/20/2019 SUBJECTIVE: The patient's case was discussed with staff. He has no new complaint. OBJECTIVE: The patient is in good behavioral control. He has poor insight about his situation. He is eating well and I am sure gaining weight. He seems less anxious than he did yesterday. I am sure that is related to the Klonopin that he has been started on, that is not something I plan to keep him on long-term. TRANSINT:[id number] Voice Confirmation ID: [id number] DOCUMENT ID: [id number] LIUDMILA PANDA MD at 1558 CC: [id number] DICTATION DATE: 11/20/191712 ANIMAL CRUELTY INVESTIGATION SUPERVISOR: 11/21/19 0224 ADM IN [facility] [address] [place] [address]
[2019-11-21 16:17] VITALS: BP 126/73
[2019-11-21 19:57] VITALS: BP 150/69
--- NOTE | 2019-11-21 22:02 | NUR ---
B.) PT IS ALERT AND ORIENTED TO SELF ONLY. HE HAS POOR INSIGHT INTO HIS SITUATION. HE IS RESTLESS AT TIMES. HE IS COOPERATIVE WITH STAFF. I.) PROVIDED PM MEDICATIONS PRESCRIBED. REDIRECT OFTEN. R.) COMPLIANT WITH ALL MEDICATIONS. EASY TO REDIRECT. P.) WILL CONTINUE TO MONITOR.
[2019-11-22 10:10] VITALS: BP 130/70
--- NOTE | 2019-11-22 14:22 | NUR ---
The patient continues to have friction rub lung sounds, he constantly asks for food, he eats all of his meals and he is hungry. He has poor insight into his situation. He has a decub to his coccyx and he has a mepilex on the area. His buttocks and back have blisters that are spreading, He is currently taking Valtrex. Provide prescribed meds. The patient is compliant with meds. He is not showing signs of hallucinations today, but he thinks he is off of work for a short time. Continue POC.
--- NOTE | 2019-11-22 16:22 | NUR ---
Patient had a large BM, reminded staff that the patient needs occult stools, will pass on. He typically has a daily BM.
--- NOTE | 2019-11-22 17:21 | NUR ---
The patient requests to use the toilet every few minutes to every 20 minutes, spoke to Dr. Weiss about it and she says to check for a UA first then we will look at another aspect.
[2019-11-22 20:00] VITALS: BP 121/62
--- NOTE | 2019-11-22 22:29 | NUR ---
B.) PT IS ALERT AND ORIENTED TO SELF ONLY. HE HAS POOR INSIGHT INTO HIS SITUATION. HE IS COOPERATIVE WITH STAFF BUT VERY CONFUSED. HE IS OBSERVED RUMAGING WITH HIS BLANKET THINKING IT IS HIS PANTS. I.) PROVIDED PM MEDICATIONS PRESCRIBED. REDIRECT NEEDED. OFFERED AN ENSURE MILKSHAKE WITH ICE CREAM AND VANILLA ENSURE FOR HIS SNACK. R.) COMPLIANT WITH ALL MEDICATIONS. EASY TO REDIRECT AND COMPLIANT WITH EATING 100 PERCENT OF HIS MILKSHAKE. P.) WILL CONTINUE TO MONITOR.
--- NOTE | 2019-11-23 08:00 | NUR ---
The patient is awake and alert, he c/o his back hurting. He has not said anything about his blisters. He has a mepilex on his coccyx. He is pleasant, but he is confused he has not shown any hallucinations this am, will monitor. he is able to stand and transfer. Provide prescribed meds. The patient is compliant with meds. Continue POC.
[2019-11-23 09:09] VITALS: BP 107/64
[2019-11-23 20:00] VITALS: BP 133/69
--- NOTE | 2019-11-23 20:02 | NUR ---
RECEIVED IN DAYROOM. SITTING IN A RECLINING CHAIR WITH PEERS AT HIS SIDE. CALM AND COOPERATIVE WITH CARE AND ASSESSMENT. NO SIGNS OF AGGRESSION. REDIRECT AND REOREINT NEEDED. CONTINUES TO SIT CALMLY IN DAYROOM. CONTINUE PLAN OF CARE.
[2019-11-24 04:12] LABS: BILIRUBIN NEGATIVE (NEGATIVE); GLUCOSE NEGATIVE (NEGATIVE); KETONE NEGATIVE (NEGATIVE); NITRITE NEGATIVE (NEGATIVE); UROBILINOGEN NORMAL (NORMAL)
[2019-11-24 09:02] VITALS: BP 107/55
--- NOTE | 2019-11-24 12:43 | NUR ---
REYNOLD SPOKE TO PT'S SON, JULIEN. HE GAVE PERMISSION TO DO A MASS SEND OUT TO [facility] IN THE ARE[place] DUE TO [facility] NOT ACCEPTING PT BACK. HE STATED IF HE IS NOT ACCEPTED THEN HE WILL TAKE MEASURES TO TAKE HIM HOME.
--- NOTE | 2019-11-24 17:10 | NUR ---
PT SITTING IN DAYROOM WITH PEERS. AWAKE AND ALERT TO PERSON ONLY. ASSESSMENT COMPLETED. PT IS VERY RESTLESS. PRESCRIBED MEDS PROVIDED ORDERED. MED COMPLIANT. FALL PRECAUTIONS IN PLACE. WILL CPOC.
--- NOTE | 2019-11-24 19:45 | NUR ---
RECEIVED IN DAYROOM. SITTING IN A CHAIR WITH PEERS AT HIS SIDE. CALM AND COOPERATIVE WITH CARE AND ASSESSMENT. NO SIGNS OF AGGRESSION. REDIRECT AND REORIENT NEEDED. CONTINUE TO SIT CALMLY AT THIS TIME. CONTINUE PLAN OF CARE.
[2019-11-24 20:12] VITALS: BP 137/73
[2019-11-25 09:38] VITALS: BP 124/70
--- NOTE | 2019-11-25 12:17 | NUR ---
PT SITTING IN DAYROOM EATING LUNCH WITH PEERS. ALERT TO PERSON ONLY. PT CAN BE VERY RESTLESS AT TIMES. PRESCRIBED MEDS PROVIDED ORDERED. MED COMPLIANT. REDIRECT AND REORIENT NEEDED. FALL PRECAUTIONS IN PLACE. WILL CPOC.
--- NOTE | 2019-11-25 17:00 | NUR ---
DR. FREY PRESENT ROUNDING. NEW ORDER FOR DEEP TERMINAL CLEAN AND CONTACT ISOLATION FOR POSSIBLE BED BUGS. CONSTRUCTION GRIP BETH AND AIMEE LENZ NOTIFIED FOR DEEP TERMINAL CLEANING FOR PTS ROOM. NEW ORDERS NOTED. WILL CPOC.
[2019-11-25 20:43] VITALS: BP 109/56
--- NOTE | 2019-11-25 21:23 | NUR ---
RECEIVED IN DAYROOM. SITTING AT THE TABLE WITH STAFF AT HIS SIDE. RESTLESS AT TIMES IN CHAIR. CALM AND COOPERATIVE WITH CARE AND ASSESSMENT. NO SIGNS OF AGGRESSION. REDIRECT AND REORIENT NEEDED. IN HALLWAY OUTSIDE OF NURSES STATION AT THIS TIME. CONTINUE PLAN OF CARE.
--- NOTE | 2019-11-26 08:39 | NUR ---
REC'D PT IN HALLWAY BY NURSES STATION. PT IN RECLINING CHAIR RESTLESS AT THIS TIME. ASSESSMENT COMPLETED. AWAKE AND ALERT TO PERSON ONLY. PRESCRIBED MEDS PROVIDED ORDERED. MED COMPLIANT. REDIRECT AND REORIENT NEEDED. PT CONTINUED ON CONTACT ISOLATION. REDIRECT AND REORIENT NEEDED. FALL PRECAUTIONS IN PLACE. WILL CPOC.
[2019-11-26 09:10] VITALS: BP 107/63
--- NOTE | 2019-11-26 14:35 | PN ---
PATIENT:MAYA COLE MEDICAL RECORD: [id number] LOCATION:[facility] ADMISSION DATE: 11/10/19 PROGRESS NOTE DATE OF SERVICE: 11/24/2019 SUBJECTIVE: The patient's case was discussed with staff. He has no new complaint. OBJECTIVE: The patient is partially oriented. He has not been aggressive. ASSESSMENT: Vascular dementia. PLAN: Current medicines have been reviewed and will be maintained. TRANSINT:[id number] Voice Confirmation ID: [id number] DOCUMENT ID: [id number] LIUDMILA PANDA MD at 1435 CC: [id number] DICTATION DATE: 11/25/19 1534 CLOTHER IN: 11/25/19 2348 ADM IN [place] [id number] [place] [address]
--- NOTE | 2019-11-26 14:35 | PN ---
PATIENT:MAYA COLE MEDICAL RECORD: [id number] LOCATION:[facility] ADMISSION DATE: 11/10/19 PROGRESS NOTE DATE OF SERVICE: 11/25/2019 SUBJECTIVE: The patient's case was discussed with staff. He has no new complaint. OBJECTIVE: The patient slept well last night. He is eating well today. He still is showing some agitation. His current dose of Aricept will be increased. ASSESSMENT: Vascular dementia. PLAN: As mentioned above, the Aricept will be increased. TRANSINT:[id number] Voice Confirmation ID: [id number] DOCUMENT ID: [id number] LIUDMILA PANDA MD at 1435 CC: [id number] DICTATION DATE: 11/25/19 1535 HEALTH ANALYST: 11/25/19 9309 ADM IN [place] [address] [place] [address]
--- NOTE | 2019-11-26 14:38 | NUR ---
NUTRITION FOLLOW UP: COMMENTS: Patient has been eating well for the past 9 meals. Last BM was yesterday. Patient has experienced a 2 lb wt gain within the past two weeks. DIET: Regular Mechanical Soft SUPPLEMENTS: Ensure TID, Theron BID PO INTAKE: 92% avg for last 9 meals WEIGHT: 11/15- 120 lbs; 11/22- 122 lbs BM: x 1 on 11/24 SIG MEDS: Reviewed SIG LABS: No new labs since 11/09 RECOMMENDATIONS: -Continue current diet as tolerated -Continue Ensure and Theron supplements -Encourage high protein foods for wound healing -Feeding assist needed with meals
--- NOTE | 2019-11-26 20:25 | NUR ---
RECEIVED IN DAYROOM SITTING IN A RECLINER WITH STAFF AT HIS SIDE. HE IS RESTLESS AND TRYING TO GET UP. CALM AND COOPERATIVE WITH ASSESSMENT. ADMINISTERED SCHEDULED MEDICATIONS. COMPLIANT WITH TAKING MEDS. NO AGGRESSION NOTED. REDIRECT AND REORIENT NEEDED. CONTINUE PLAN OF CARE.
[2019-11-26 20:37] VITALS: BP 143/74
--- NOTE | 2019-11-27 09:29 | NUR ---
The patient is awake, he is confused. He has poor short term memory call, he has poor insight into his situation. He is calm and pleasant. He asks to leave and he requires redirection. He redirects easily. He does not ambulate at this time. He stands and transfers. He needs assist to toilet, but he feeds himself. Provide prescribed meds. The patient is compliant with meds crushed in pudding. He has dried areas on his back, buttocks and legs that look like blisters that burst. They are all dry at this time. He has not made any c/o pain to the areas and he has not been itching. He has been coughing. A face mask is applied as he requested one. He is wearing a yellow gown and gloves at this time. He has not shown any signs at this time of hallucinations, but he is delusional as he thinks he needs to get up and go to work. Continue POC.
--- NOTE | 2019-11-27 12:16 | PN ---
PATIENT:MAYA COLE MEDICAL RECORD: [id number] LOCATION:WANDA Marquez ADMISSION DATE: 11/10/19 PROGRESS NOTE DATE OF SERVICE: 11/26/2019 SUBJECTIVE: The patient's case was discussed with staff. He has no new complaint. OBJECTIVE: The patient is in good behavioral control. He has poor insight about his situation. He has not been aggressive. He is eating better. ASSESSMENT: Vascular dementia. PLAN: The patient is improving. There are a couple of medical issues to attend to, but I think he can be transitioned out of the hospital safely in a few days if this level of improvement continues. I know a detention labor service representative is looking at him today. TRANSINT:[id number] Voice Confirmation ID: [id number] DOCUMENT ID: [id number] LIUDMILA PANDA MD at 1216 CC: [id number] DICTATION DATE: 11/26/19 1510 TOY MAKER: 11/27/19 0025 ADM IN [place] [id number] [place] [address]
[2019-11-27] MEDS ORDERED: VALTREX500 MG PO (12:44)
[2019-11-27] MEDS ORDERED: KLONOPIN0.5 MG PO (12:44)
[2019-11-27] MEDS ORDERED: DONEPEZIL HCL10 MG PO (12:44)
[2019-11-27] MEDS ORDERED: OXYBUTYNIN CHLOR5 MG PO (12:45)
[2019-11-27] MEDS ORDERED: BENADRYL 2% CRE30 GM TOPICAL (12:45)
--- NOTE | 2019-11-27 17:05 | PN ---
PATIENT:MAYA COLE MEDICAL RECORD: [id number] LOCATION:WANDA Marquez ADMISSION DATE: 11/10/19 PROGRESS NOTE DATE OF SERVICE: 11/27/2019 SUBJECTIVE: The patient's case was discussed with staff. He has no new complaint. OBJECTIVE: The patient is in good behavioral control, impaired cognitively, but not acutely dangerous. ASSESSMENT: Vascular dementia. PLAN: The patient will be transitioned out of the hospital tomorrow. Followup will be with his primary care long-term physician. TRANSINT:[id number] Voice Confirmation ID: [id number] DOCUMENT ID: [id number] LIUDMILA PANDA MD at 1705 CC: [id number] DICTATION DATE: 11/27/19 1242 HYDRAULIC TECHNICIAN: 11/27/19 1619 ADM IN [place] [id number] [place] [address]
[2019-11-27 20:32] VITALS: BP 114/71
--- NOTE | 2019-11-27 22:29 | NUR ---
RECEIVED PATIENT IN DAYROOM, SITTING IN GERICHAIR, HE IS CONFUSED, NO HALLUCINATIONS NOTED THIS EVENING. COMPLIANT WITH MEDS, WILL FOLLOW POC
[2019-11-28 08:52] VITALS: BP 86/53
--- NOTE | 2019-11-28 09:36 | NUR ---
Called report to Maricruz at [facility], faxed all paperwork to include the COVID results. Hard copy available for the boom truck driver to hand carry.
--- NOTE | 2019-11-28 10:03 | NUR ---
The patient is awake. He is pleasant and calm. He is cooperative. He is not ambulating, but he feeds himself. He has some delusions and hallucinations from time to time, but it does not upset him. Provide prescribed meds. The patient is compliant with meds. He is supposed to d/c to the longterm today. Continue POC.
--- NOTE | 2019-11-28 11:13 | NUR ---
Jaimee Rothman is here to pick the patient up and take him to the NH. He is assisted by staff from the rené chair to a w/c to get in. Provided the train driver with the paperwork. The patient is now d/c'd from [facility].
== END 2019-11-28 11:18 | DRG 884 ==
LOC: D.PSYCH 17:57
PROVIDERS: Family Medicine; ADMIT Psychiatry & Neurology Psychiatry; ATTEND Psychiatry & Neurology Psychiatry
DX: F01.51 Vascular dementia, unspecified severity, with behavioral disturbance (principal); E44.0 Moderate protein-calorie malnutrition; Z68.1 Body mass index [BMI] 19.9 or less, adult; J44.9 Chronic obstructive pulmonary disease, unspecified; F17.200 Nicotine dependence, unspecified, uncomplicated; D64.9 Anemia, unspecified; M19.90 Unspecified osteoarthritis, unspecified site; K59.00 Constipation, unspecified; R91.8 Other nonspecific abnormal finding of lung field; R21 Rash and other nonspecific skin eruption; R39.15 Urgency of urination

== ENCOUNTER → 2020-01-23 13:06 | Outpatient (CLI) | payer MEDICARE, MEDICAID ==
[2019-11-11 10:37] VITALS: BMI 14.8
[~2020-01-23 13:06] MED LIST changes: +ATARAX 25 MG TA25 MG PO; +BENADRYL 2% CRE30 GM TOPICAL; +DONEPEZIL HCL10 MG PO; +KLONOPIN0.5 MG PO; +LIPITOR20 MG PO; +OXYBUTYNIN CHLOR5 MG PO; +PAMELOR10 MG PO; +TYLENOL W/CODEI1 TAB PO; +VALTREX500 MG PO
== END | disposition home or self-care (01) ==
LOC: D.LAB 13:06
PROVIDERS: ATTEND Internal Medicine Pulmonary Disease
DX: Z11.59 Encounter for screening for other viral diseases (principal)

== ENCOUNTER → 2020-06-11 18:05 | Outpatient (CLI) | payer MEDICARE, MEDICAID ==
[2020-01-29 12:13] VITALS: BMI 18.8
[~2020-06-11 18:05] MED LIST changes: +FUROSEMIDE20 MG PO; +LEVAQUIN750 MG PO; +PROTONIX40 MG PO; +SINGULAIR10 MG PO
[2020-06-11 19:00] LABS: BASOPHILS 0.4 % (0-2); EOSINOPHILS 2.8 % (0-7); HEMOGLOBIN 12.6 g/dL (13.5-17.5); IMMATURE GRANULOCYTES 0.1 % (0-5); LYMPHOCYTE ABS# 1.44 10x3/uL (1.32-3.57); LYMPHOCYTES 18.7 % (15-50); MCH 28.6 pg (26.0-34.0); MCHC 33.2 g/dL (31.0-37.0); MCV 86.2 fL (80.0-100.0); MEAN PLATELET VOLUME 9.2 fL (7.4-10.4); MONOCYTES 11.9 % (2-11); NEUTROPHILS 66.1 % (40-80); RBC 4.41 10x6/uL (4.20-6.10); RDW 14.4 % (11.5-14.5); WBC 7.7 10x3/uL (4.8-10.8)
[2020-06-11 19:33] LABS: ANION GAP 12.4 mmol/L (8-16); CALCIUM 8.9 mg/dL (8.5-10.1); CARBON DIOXIDE 30.3 mmol/L (21.0-32.0); CREATININE - SERUM 1.4 mg/dL (0.6-1.3); POTASSIUM - SERUM 3.7 mmol/L (3.5-5.1)
[2020-06-11 20:20] LABS: PLATELET COUNT 227 10x3/uL (130-400)
[2020-06-11 20:28] LABS: BILIRUBIN NEGATIVE (NEGATIVE); KETONE NEGATIVE (NEGATIVE); NITRITE NEGATIVE (NEGATIVE); UROBILINOGEN NORMAL mg/dL (< 2)
== END | disposition home or self-care (01) ==
LOC: D.LABREF 18:05
PROVIDERS: ATTEND Legal Medicine
DX: R30.0 Dysuria (principal)